=== PATIENT | female | born 1960 | race American Indian/Alaskan Native ===

== ENCOUNTER 2016-07-20 13:11 | Inpatient (IN) | payer MEDICAID ==
[2016-07-20 13:27] VITALS: BMI 25.7
[2016-07-20 13:30] LABS: ADD MANUAL DIFF? NO
[2016-07-20 13:34] LABS: BASO # 0.04 K/mm3 (0.0-2.0); BASO % 0.7 % (0.0-3.0); EOS # 0.1 (0.0-0.7); EOS % 1.1 % (1.5-5.0); GRAN # 3.03 (1.4-6.5); GRAN % 54.8 % (50.0-68.0); HEMATOCRIT 43.1 % (36.0-48.0); LYMPH # 1.9 (1.2-3.4); LYMPH % 33.8 % (22.0-35.0); MEAN CELL VOLUME 94.1 fL (80.0-105.0); MEAN CORPUSCULAR HEMOGLOBIN 31.7 pg (25.0-35.0); MEAN CORPUSCULAR HGB CONC 33.6 g/dl (31.0-37.0); MEAN PLATELET VOLUME 8.9 fl (7.0-11.0); MONO # 0.5 (0.1-0.6); MONO % 9.6 % (1.0-6.0); PLATELET COUNT 181 10^3/uL (120.0-450.0); WHITE BLOOD COUNT 5.5 10^3/ul (4.5-11.0)
--- NOTE | 2016-07-20 13:35 | ED PDOC ---
Arrival/HPI - General Chief Complaint: Chest Pain Time Seen by Provider: 07/20/16 13:15 Historian: Patient - History of Present Illness Narrative History of Present Illness (Text): 07/20/16 13:41 Pamela Hampton is a 56 year old female whose past medical history includes HIV, hypertension, CAD, and CHF, who presents to the Emergency department complaining of shortness of breath and chest pain since this morning. Patient denies headache, fever, cough, nausea, vomiting, back pain, lower extremity pain /swelling, or any other complaints at this time. PMD: Kevin Viveros MD Time/Duration: 24 hours Symptom Onset: Gradual Symptom Course: Unchanged Activities at Onset: Light Context: Home Past Medical History - Provider Review Nursing Documentation Reviewed: Yes - Infectious Disease Hx of Infectious Diseases: None - Tetanus Immunization Tetanus Immunization: Up to Date - Cardiac Hx Cardiac Disorders: Yes Hx Hypertension: Yes Hx Pacemaker: No - Pulmonary Hx Respiratory Disorders: Yes Hx Pneumonia: Yes - Neurological Hx Neurological Disorder: No Hx Paralysis: No - HEENT Hx HEENT Disorder: No Hx Blind: No - Renal Hx Renal Disorder: No - Endocrine/Metabolic Hx Endocrine Disorders: No - Hematological/Oncological Hx Blood Disorders: Yes Hx Blood Transfusions: No Hx Blood Transfusion Reaction: No - Integumentary Hx Dermatological Disorder: No - Musculoskeletal/Rheumatological Hx Musculoskeletal Disorders: No - Gastrointestinal Hx Gastrointestinal Disorders: No - Genitourinary/Gynecological Hx Genitourinary Disorders: No - Psychiatric Hx Psychophysiologic Disorder: No Hx Emotional Abuse: No Hx Physical Abuse: No Hx Substance Use: No - Past Surgical History Past Surgical History: No Previous - Anesthesia Hx Anesthesia Reactions: No Hx Malignant Hyperthermia: No - Suicidal Assessment Feels Threatened In Home Enviroment: No Family/Social History - Physician Review Nursing Documentation Reviewed: Yes Family/Social History: No Known Family HX Smoking Status: Current Some Days Smoker Hx Alcohol Use: No Hx Substance Use: No Hx Substance Use Treatment: No Allergies/Home Meds Allergies/Adverse Reactions: Allergies No Known Allergies Allergy (Verified 07/20/16 13:20) Home Medications: Home Meds Medication Instructions Recorded Confirmed Efavirenz/Emtricitabine/Teno 1 tab PO HS 05/20/12 07/20/16 [Atripla 600 MG-200 MG-300 MG] Metoprolol Tartrate [Lopressor] 50 mg PO BID 03/08/16 07/20/16 amLODIPine [Norvasc] 10 mg PO DAILY 03/08/16 07/20/16 Review of Systems - Physician Review All systems were reviewed & negative as marked: Yes - Review of Systems Constitutional: Normal. absent: Fevers Eyes: Normal ENT: Normal Respiratory: SOB. absent: Cough Cardiovascular: Chest Pain Gastrointestinal: Normal. absent: Abdominal Pain, Diarrhea, Nausea, Vomiting Genitourinary Female: Normal. absent: Dysuria, Frequency, Hematuria, Urine Output Changes Musculoskeletal: Normal. absent: Back Pain, Neck Pain Skin: Normal Neurological: Normal. absent: Headache, Dizziness Endocrine: Normal Hemo/Lymphatic: Normal Psychiatric: Normal Physical Exam Vital Signs Reviewed: Yes Vital Signs Temp Pulse Resp BP Pulse Ox 07/20/16 16:18 108 H 138/97 H 07/20/16 16:04 112 H 21 147/92 H 98 07/20/16 15:32 119 H 146/100 H 07/20/16 15:05 121 H 131/100 H 07/20/16 14:19 128/98 H 07/20/16 14:05 123 H 128/98 H 07/20/16 13:22 97 F L 123 H 17 147/101 H 96 Temperature: Afebrile Blood Pressure: Hypertensive Pulse: Tachycardic Respiratory Rate: Normal Appearance: Positive for: Well-Appearing, Non-Toxic, Comfortable Pain Distress: None Mental Status: Positive for: Alert and Oriented X 3 - Systems Exam Head: Present: Atraumatic, Normocephalic Pupils: Present: PERRL Extroacular Muscles: Present: EOMI Conjunctiva: Present: Normal Mouth: Present: Moist Mucous Membranes Respiratory/Chest: Present: Good Air Exchange. No: Respiratory Distress, Accessory Muscle Use Cardiovascular: Present: Regular Rate and Rhythm, Normal S1, S2, Other (Cackles) . No: Murmurs Abdomen: Present: Normal Bowel Sounds. No: Tenderness, Distention, Peritoneal Signs Lower Extremity: Present: Edema (3+ pitting edema b/l) Neurological: Present: GCS=15, CN II-XII Intact, Speech Normal Skin: Present: Warm, Dry, Normal Color. No: Rashes Psychiatric: Present: Alert, Oriented x 3, Normal Insight, Normal Concentration Medical Decision Making ED Course and Treatment: 07/20/16 13:34 Impression: 56 year old female who presents with chest pain and shortness of breath today. Plan: -- Chest X-ray -- EKG -- Labs, Urinalysis -- Aspirin -- Reassess and disposition Prior Visits: Notes and results from previous visits were reviewed. Patient was last seen in the emergency department on 03/08/16 for high blood pressure. Progress Notes: 07/20/16 13:[address] elevation mi, case discussed with dr augustin. will not activate at this time, as suspected tachcardia 07/20/16 13:43 Patient reports she is now pain free. hospitalist bedside, dig, and lovenox ordered for new aflutter 07/22/16 13:37 - Lab Interpretations Lab Results: 07/20/16 13:20 07/20/16 13:20 Lab Results 07/20/16 14:00: TSH 3rd Generation 3.01 07/20/16 13:20: WBC 5.5, RBC 4.58, Hgb 14.5, Hct 43.1, MCV 94.1, MCH 31.7, MCHC 33.6, RDW 18.0 H, Plt Count 181, MPV 8.9, Gran % 54.8, Lymph % (Auto) 33.8, Sevier % (Auto) 9.6 H, Eos % (Auto) 1.1 L, Baso % (Auto) 0.7, Gran # 3.03, Lymph # 1.9, Sevier # 0.5, Eos # 0.1, Baso # 0.04, PT 12.6 H, INR 1.17 H, APTT 27.8, Sodium 141, Potassium 3.5 L, Chloride 106, Carbon Dioxide 22, Anion Gap 17, BUN 25 H, Creatinine 1.1, Est GFR ( Amer) > 60, Est GFR (Non-Af Amer) 51, Random Glucose 63 L, Calcium 9.2, Magnesium 2.2, Total Bilirubin 1.6 H, AST 65 H , ALT 52, Alkaline Phosphatase 437 H, Lactate Dehydrogenase 725 H, Total Creatine Kinase 121, Troponin I 0.04, NT-Pro-B Natriuret Pep 3940 H, Total Protein 8.7 H, Albumin 4.0, Globulin 4.7, Albumin/Globulin Ratio 0.9 L I have reviewed the lab results: Yes - RAD Interpretation Radiology Orders: 07/20/16 13:25 CHEST PORTABLE [RAD] Stat Delivery And Mail Sorter: Radiologist - EKG Interpretation Interpreted by ED Physician: Yes Type: 12 lead EKG - Medication Orders Current Medication Orders: Aspirin (Ecotrin) 81 mg PO DAILY [facility] Last Admin: 07/22/16 09:03 Dose: 81 MG Atorvastatin Calcium (Lipitor) 20 mg PO DIN [facility] Last Admin: 07/21/16 17:21 Dose: 20 MG Efavirenz/Emtricitabine/Tenofovir (Atripla 600 Mg-200 Mg-300 Mg) 1 tab PO DAILY [facility] Last Admin: 07/22/16 09:03 Dose: 1 TAB Enoxaparin Sodium (Lovenox) 60 mg SC Q12H [facility] PRN Reason: Protocol Last Admin: 07/22/16 13:06 Dose: 60 MG Subcutaneous Administrations Document 07/22/16 13:06 RT (Rec: 07/22/16 13:06 RT [id number]) Injection Site MAR Injection Site Right Abdomen Charges for Administration # of Subcutaneous Administrations 1 Famotidine (Pepcid) 40 mg PO HS [facility] Last Admin: 07/21/16 21:52 Dose: 40 MG Furosemide (Lasix) 80 mg IVP Q12 [facility] Last Admin: 07/22/16 09:02 Dose: 80 MG MAR Blood Pressure Document 07/22/16 09:02 RT (Rec: 07/22/16 09:02 RT [id number]) Blood Pressure Blood Pressure (100/60-150/90) 147/73 IVP Administration Document 07/22/16 09:02 RT (Rec: 07/22/16 09:02 RT [id number]) Charges for Administration # of IVP Administrations 1 Lisinopril (Zestril) 10 mg PO DAILY [facility] Last Admin: 07/22/16 09:02 Dose: 10 MG Metoprolol Tartrate (Lopressor) 25 mg PO 0800,1800 [facility] Last Admin: 07/22/16 07:43 Dose: 25 MG MAR Pulse and Blood Pressure Document 07/22/16 07:43 RT (Rec: 07/22/16 07:43 RT [id number]) Pulse Pulse Rate (60-90) 75 Blood Pressure Blood Pressure (100/60-150/90) 147/73 Metoprolol Tartrate (Lopressor) 5 mg IVP Q8 PRN PRN Reason: Systolic Blood Pressure Nicotine (Nicoderm Cq) 1 patch TD DAILY [facility] Last Admin: 07/22/16 10:36 Dose: Not Given Non-Admin Reason: Patient Refused Potassium Chloride (Klor-Con 10) 10 meq PO BRK [facility] Last Admin: 07/22/16 09:03 Dose: 10 MEQ Spironolactone (Aldactone) 25 mg PO DAILY [facility] Last Admin: 07/22/16 09:03 Dose: 25 MG Discontinued Medications Aspirin (Aspirin) 325 mg PO STAT [facility] Stop: 07/20/16 13:26 Last Admin: 07/20/16 14:04 Dose: 325 MG Digoxin (Lanoxin) 0.25 mg IVP STAT STA Stop: 07/20/16 14:18 Last Admin: 07/20/16 14:48 Dose: 0.25 MG MAR Apical Pulse Rate Document 07/20/16 14:48 GMI (Rec: 07/20/16 14:49 GMI [id number]) Apical Pulse Rate Apical Pulse Rate (60-90 beats/min) 122 IVP Administration Document 07/20/16 14:48 GMI (Rec: 07/20/16 14:49 GMI [id number]) Charges for Administration # of IVP Administrations 1 Enoxaparin Sodium (Lovenox) 65 mg SC STAT [facility] PRN Reason: Protocol Stop: 07/20/16 14:11 Last Admin: 07/20/16 14:51 Dose: 65 MG Subcutaneous Administrations Document 07/20/16 14:51 GMI (Rec: 07/20/16 14:52 GMI [id number]) Injection Site MAR Injection Site Left Abdomen Charges for Administration # of Subcutaneous Administrations 1 Furosemide (Lasix) 40 mg IVP STAT STA Stop: 07/20/16 14:02 Last Admin: 07/20/16 14:19 Dose: 40 MG MAR Blood Pressure Document 07/20/16 14:19 GMI (Rec: 07/20/16 14:20 GMI [id number]) Blood Pressure Blood Pressure (100/60-150/90) 128/98 IVP Administration Document 07/20/16 14:19 GMI (Rec: 07/20/16 14:20 GMI [id number]) Charges for Administration # of IVP Administrations 1 Furosemide (Lasix) 40 mg IVP Q12 [facility] Last Admin: 07/21/16 21:56 Dose: Not Given Non-Admin Reason: Patient Refused Metoprolol Tartrate (Lopressor) 25 mg PO STAT [facility]A Stop: 07/20/16 14:44 Last Admin: 07/20/16 15:32 Dose: 25 MG MAR Pulse and Blood Pressure Document 07/20/16 15:32 GMI (Rec: 07/20/16 15:32 GMI [id number]) Pulse Pulse Rate (60-90) 119 Blood Pressure Blood Pressure (100/60-150/90) 146/100 Pneumococcal Polyvalent Vaccine (Pneumovax 23 Vaccine) 0.5 ml IM .ONCE ONE Stop: 07/20/16 19:15 Potassium Chloride (K-Dur 20 Meq Er Tab) 40 meq PO STAT STA Stop: 07/20/16 14:52 Last Admin: 07/20/16 16:06 Dose: 40 MEQ - Mendezibe Statement The provider has reviewed the documentation as recorded by the Damion Kemp Provider Attestation: All medical record entries made by the Damion were at my direction and personally dictated by me. I have reviewed the chart and agree that the record accurately reflects my personal performance of the history, physical exam, medical decision making, and the department course for this patient. I have also personally directed, reviewed, and agree with the discharge instructions and disposition. Disposition/Present on Arrival - Present on Arrival Any Indicators Present on Arrival: No History of DVT/PE: No History of Uncontrolled Diabetes: No Urinary Catheter: No History of Decub. Ulcer: No History Surgical Site Infection Following: None - Disposition Have Diagnosis and Disposition been Completed?: Yes Diagnosis: Atrial flutter, CHF (congestive heart failure) Disposition: HOSPITALIZED Disposition Time: 02:00 Patient Problems: Current Active Problems Problem Status Diagnosed Atrial flutter Acute CHF (congestive heart failure) Acute Condition: FAIR
[2016-07-20 13:45] LABS: ALB/GLOB RATIO 0.9 (1.1-1.8); ALKALINE PHOSPHATASE 437 U/L (38-133); ALT/SGPT 52 U/L (7-56); AST/SGOT 65 U/L (15-39); BILIRUBIN,TOTAL 1.6 mg/dL (0.2-1.3); BLOOD UREA NITROGEN 25 mg/dL (7-21); CALCIUM 9.2 mg/dL (8.4-10.5); CARBON DIOXIDE 22 mmol/L (21-33); CHLORIDE 106 mmol/L (98-107); GFR AFRICAN-AMERICAN > 60; GLUCOSE,RANDOM 63 mg/dL (70-110); MAGNESIUM 2.2 mg/dL (1.7-2.2); POTASSIUM 3.5 mmol/L (3.6-5.0); SODIUM 141 mmol/L (132-148); TOTAL PROTEIN 8.7 g/dL (5.8-8.3)
[2016-07-20 13:47] LABS: INR 1.17 (0.93-1.08); PARTIAL THROMBOPLASTIN TIME 27.8 Seconds (23.7-30.8)
[2016-07-20 13:56] LABS: TROPONIN I 0.04 ng/mL
[2016-07-20] MEDS ORDERED: Enoxaparin 60 mg Syringe SC STA (14:10)
[2016-07-20] MEDS ORDERED: Digoxin 500 mcg/2ml (0.5 mg/2ml) Inj IVP STA (14:17)
[2016-07-20] MEDS ORDERED: Potassium Chloride 20 mEq ER Tab PO STA (14:51)
[2016-07-20 14:54] VITALS: PULSE 122
[2016-07-20 15:20] LABS: URINE BILIRUBIN NEGATIVE (NEGATIVE); URINE BLOOD TRACE-INTACT (NEGATIVE); URINE GLUCOSE (UA) NEGATIVE (NEGATIVE); URINE KETONE NEGATIVE (NEGATIVE); URINE LEUKOCYTE ESTERASE NEGATIVE Leu/uL (NEGATIVE); URINE PROTEIN 100 mg/dL (<30 mg/dL); URINE UROBILINOGEN 0.2 E.U./dL (<1 E.U./dL)
--- NOTE | 2016-07-20 15:28 | CP.PCM.HP ---
History of Present Illness - History of Present Illness History of Present Illness: Shortness of breath and leg swelling Patient seen and examined in ER bed 7. Patient is alert, awake and oriented. Able to give history. Patient is a 56-year-old -Stateless female with a past medical history of HIV, cardiomyopathy, hypertension is admitted with shortness of breath and leg swelling. Her symptoms started about 10 days ago. Slowly increasing bilateral lower extremity swelling. Patient also complained of shortness of breath with exertion. Patient is currently using 3 pillows to sleep. Patient is complaining of orthopnea and paroxysmal nocturnal dyspnea for the past few weeks. Patient denies any fevers, chills. Denies any chest pain. Complaining of minimal chest discomfort. Not radiating. Denies any cough or sputum production. Denies any abdominal pain, nausea, vomiting. Denies any urinary, bowel symptoms. Patient is very noncompliant with her blood pressure medication. Patient did not take Lasix for the past 3 years. Patient took only one lasix 40 mg on Friday and one on after noticing leg swelling. this was an old prescription. PMD; Dr. Petty. Infectious disease; Dr. Axel Luna. Pharmacy; [facility] [phone] Past medical history; HIV since 2008 Active smoking Cardiomyopathy Cardiac cath in 2012/nonobstructive coronary disease Noncompliance with medication Current medications; Atripla Norvasc 10 mg by mouth daily Did not take Lasix or metoprolol Past surgical history; None Allergies; None Social history; Smokes 6-7 cigarettes per day over 20 years Social alcohol use Denies any drug abuse Patient lives in [place]. Independent with ADL. Present on Admission - Present on Admission Any Indicators Present on Admission: No History of DVT/PE: No History of Uncontrolled Diabetes: No Urinary Catheter: No Decubitus Ulcer Present: No Review of Systems - Constitutional Constitutional: absent: Chills - EENT Eyes: absent: Blurred Vision Nose/Mouth/Throat: absent: Nasal Congestion - Cardiovascular Cardiovascular: absent: Chest Pain, Chest Pain at Rest - Respiratory Respiratory: Dyspnea on Exertion. absent: Cough - Gastrointestinal Gastrointestinal: absent: Abdominal Pain, Nausea, Vomiting - Musculoskeletal Musculoskeletal: absent: Abnormal Gait Additional comments: leg swelling - Neurological Neurological: absent: Abnormal Gait, Confusion, Focal Weakness, Weakness - Psychiatric Psychiatric: absent: Anxiety, Depression - Hematologic/Lymphatic Hematologic: absent: Easy Bleeding, Easy Bruising Past Patient History - Infectious Disease Hx of Infectious Diseases: None - Tetanus Immunizations Tetanus Immunization: Up to Date - Past Social History Smoking Status: Current Some Days Smoker Alcohol: None Drugs: Denies Home Situation {Lives}: Alone - CARDIAC Hx Cardiac Disorders: Yes Hx Hypertension: Yes Hx Pacemaker: No - PULMONARY Hx Respiratory Disorders: Yes Hx Pneumonia: Yes - NEUROLOGICAL Hx Neurological Disorder: No Hx Paralysis: No - HEENT Hx HEENT Problems: No Hx Blind: No - RENAL Hx Chronic Kidney Disease: No - ENDOCRINE/METABOLIC Hx Endocrine Disorders: No - HEMATOLOGICAL/ONCOLOGICAL Hx Blood Disorders: Yes Hx Blood Transfusions: No Hx Blood Transfusion Reaction: No Hx Human Immunodeficiency Virus (HIV): Yes - INTEGUMENTARY Hx Dermatological Problems: No - MUSCULOSKELETAL/RHEUMATOLOGICAL Hx Musculoskeletal Disorders: No - GASTROINTESTINAL Hx Gastrointestinal Disorders: No - GENITOURINARY/GYNECOLOGICAL Hx Genitourinary Disorders: No - PSYCHIATRIC Hx Psychophysiologic Disorder: No Hx Emotional Abuse: No Hx Physical Abuse: No Hx Substance Use: No - SURGICAL HISTORY Hx Surgeries: No - ANESTHESIA Hx Anesthesia Reactions: No Hx Malignant Hyperthermia: No Meds Allergies/Adverse Reactions: Allergies Allergy/AdvReac Type Severity Reaction Status Date / Time No Known Allergies Allergy Verified 07/20/16 13:20 Physical Exam - Constitutional Appears: Well, Non-toxic - Head Exam Head Exam: NORMAL INSPECTION - Eye Exam Eye Exam: Normal appearance - ENT Exam ENT Exam: Mucous Membranes Moist - Respiratory Exam Respiratory Exam: Rales Additional comments: on bases - Cardiovascular Exam Cardiovascular Exam: Tachycardia, Irregular Rhythm - GI/Abdominal Exam GI & Abdominal Exam: Normal Bowel Sounds, Soft. absent: Rebound, Rigid - Extremities Exam Extremities exam: Positive for: pedal edema - Back Exam Back exam: absent: CVA tenderness (L), CVA tenderness (R) - Neurological Exam Neurological exam: Alert, Oriented x3 - Psychiatric Exam Psychiatric exam: Normal Affect - Skin Skin Exam: Normal Color Results - Vital Signs Recent Vital Signs: Last Vital Signs Temp 97 F L 07/20/16 13:22 Pulse 121 H 07/20/16 15:05 Resp 17 07/20/16 13:22 BP 131/100 H 07/20/16 15:05 Pulse Ox 96 07/20/16 13:22 - Labs Result Diagrams: 07/20/16 13:20 07/20/16 13:20 Assessment & Plan - Assessment and Plan (Free Text) Assessment: 1. Patient is a 56-year-old female with past medical history of cardiomyopathy, hypertension, HIV noncompliant with medications is admitted with Progressive shortness of breath and leg swelling. Acute congestive heart failure/possibly secondary to systolic CHF. Started on IV Lasix. Strict input and output. Daily weight ordered. Cardiac diet ordered. Dietitian evaluation requested. Echocardiogram ordered. Cardiology evaluation requested. 2. Atrial flutter/A. fib with ST-T changes. EKG reviewed with dairy scientist on- call by ED attending. Cardiac enzymes negative. 1 dose of IV digoxin given. Started on subcutaneous Lovenox. Monitor heart rate closely. Started on metoprolol, lisinopril. 3. HIV; continue Atripla. Patient has undetectable viral load and good CD4 count recently. Patient follows up with Dr. Axel Luna for HIv follow up. 4. Mildly elevated LFTs; possibly passive congestion secondary to CHF. Monitor closely. 5. GI prophylaxis with Pepcid. 6. Active smoking; smoking cessation is strongly advised. upon discharge patient will follow-up with PMD Dr. elias. Patient needs close follow-up with dairy scientist. Medication compliance is strongly recommended.
[2016-07-20 15:41] LABS: URINE APPEARANCE CLEAR (CLEAR); URINE COLOR YELLOW (YELLOW)
[2016-07-20 15:49] LABS: URINE EPITHELIAL CELLS 0 - 2 /hpf (0-5); URINE WBC 0 - 2 /hpf (0-6)
[2016-07-20] MEDS ORDERED: Metoprolol 1 mg/ml Inj IVP PRN (16:00)
[2016-07-20] MEDS: Efavirenz/Emtricitabine/Teno 1 TAB PO SCH (16:16)
[2016-07-20] MEDS ORDERED: Pneumococcal 23-Valent Vaccine IM ONE (19:14)
[2016-07-20 20:52] LABS: TROPONIN I 0.04 ng/mL
[2016-07-20] MEDS ORDERED: Enoxaparin 60 mg Syringe SC SCH (22:00)
[2016-07-21] MEDS: Enoxaparin 60 mg Syringe SC SCH ×2 (01:16→14:07)
[2016-07-21 06:52] LABS: HEMATOCRIT 38.4 % (36.0-48.0); MEAN CORPUSCULAR HEMOGLOBIN 30.3 pg (25.0-35.0); MEAN CORPUSCULAR HGB CONC 32.6 g/dl (31.0-37.0); RED CELL DISTRIBUTION WIDTH 17.7 % (11.5-14.5); WHITE BLOOD COUNT 4.9 10^3/ul (4.5-11.0)
[2016-07-21 06:58] LABS: ALB/GLOB RATIO 0.8 (1.1-1.8); ALKALINE PHOSPHATASE 383 U/L (38-133); ALT/SGPT 59 U/L (7-56); AST/SGOT 59 U/L (15-39); BILIRUBIN,TOTAL 1.2 mg/dL (0.2-1.3); BLOOD UREA NITROGEN 27 mg/dL (7-21); CALCIUM 8.7 mg/dL (8.4-10.5); CARBON DIOXIDE 22 mmol/L (21-33); CHLORIDE 107 mmol/L (98-107); CHOLESTEROL 159 mg/dL (130-200); GFR AFRICAN-AMERICAN > 60; GLUCOSE,RANDOM 92 mg/dL (70-110); POTASSIUM 3.6 mmol/L (3.6-5.0); SODIUM 138 mmol/L (132-148)
[2016-07-21 07:11] LABS: TROPONIN I 0.04 ng/mL
--- NOTE | 2016-07-21 08:05 | RAD ---
HISTORY: cp COMPARISON: No prior. FINDINGS: LUNGS: No active pulmonary disease. PLEURA: No significant pleural effusion identified, no pneumothorax apparent. CARDIOVASCULAR: Cardiomegaly. OSSEOUS STRUCTURES: No significant abnormalities. VISUALIZED UPPER ABDOMEN: Normal. OTHER FINDINGS: None. IMPRESSION: No active disease.
[2016-07-21] MEDS: Efavirenz/Emtricitabine/Teno 1 TAB PO SCH (10:22)
--- NOTE | 2016-07-21 10:24 | CP.PCM.PN ---
Subjective - Date & Time of Evaluation Date of Evaluation: 07/21/16 Time of Evaluation: 08:00 - Subjective Subjective: patient seen and examined in room 271. Patient is alert, awake and oriented. Shortness of breath improved significantly. Denies any chest pain. denies any abdominal pain, nausea, vomiting. Leg swelling is improving slowly. Urinating well. I/O is in negative 2 liter. Review of Systems - Constitutional Constitutional: absent: Chills - EENT Eyes: absent: Blurred Vision Nose/Mouth/Throat: absent: Nasal Congestion - Cardiovascular Cardiovascular: Dyspnea on Exertion, Edema. absent: Chest Pain, Chest Pain at Rest - Respiratory Respiratory: absent: Cough, Chest Congestion - Gastrointestinal Gastrointestinal: absent: Abdominal Pain, Nausea, Vomiting - Musculoskeletal Musculoskeletal: absent: Abnormal Gait, Numbness - Psychiatric Psychiatric: absent: Anxiety, Depression - Hematologic/Lymphatic Hematologic: absent: Easy Bleeding, Easy Bruising Objective - Vital Signs/Intake and Output Vital Signs (last 24 hours): Temp Pulse Resp BP Pulse Ox 98.6 F 94 H 22 115/74 97 07/21/16 05:46 07/21/16 08:22 07/21/16 05:46 07/21/16 08:22 07/21/16 05:46 Intake and Output: 07/21/16 07/21/16 06:59 18:59 Intake Total 1080 Output Total 1350 Balance -270 - Medications Medications: Current Medications Aspirin (Ecotrin) 81 mg PO DAILY [facility] Last Admin: 07/20/16 16:23 Dose: Not Given Atorvastatin Calcium (Lipitor) 20 mg PO DIN [facility] Last Admin: 07/20/16 16:01 Dose: 20 mg Efavirenz/Emtricitabine/Tenofovir (Atripla 600 Mg-200 Mg-300 Mg) 1 tab PO DAILY [facility] Last Admin: 07/20/16 16:16 Dose: 1 tab Enoxaparin Sodium (Lovenox) 60 mg SC Q12H [facility] PRN Reason: Protocol Last Admin: 07/21/16 01:16 Dose: 60 mg Famotidine (Pepcid) 40 mg PO HS [facility] Last Admin: 07/20/16 22:41 Dose: 40 mg Furosemide (Lasix) 40 mg IVP Q12 [facility] Last Admin: 07/20/16 22:40 Dose: 40 mg Lisinopril (Zestril) 10 mg PO DAILY [facility] Last Admin: 07/20/16 16:18 Dose: 10 mg Metoprolol Tartrate (Lopressor) 25 mg PO 0800,1800 [facility] Last Admin: 07/21/16 08:22 Dose: 25 mg Metoprolol Tartrate (Lopressor) 5 mg IVP Q8 PRN PRN Reason: Systolic Blood Pressure - Labs Labs: 07/21/16 06:41 07/21/16 06:41 PT 12.6 Seconds (9.9-11.8) H 07/20/16 13:20 INR 1.17 (0.93-1.08) H 07/20/16 13:20 APTT 27.8 Seconds (23.7-30.8) 07/20/16 13:20 - Constitutional Appears: Well, Non-toxic - Eye Exam Eye Exam: Normal appearance - ENT Exam ENT Exam: Mucous Membranes Moist - Respiratory Exam Respiratory Exam: Clear to Ausculation Bilateral. absent: Rales - Cardiovascular Exam Cardiovascular Exam: Irregular Rhythm - GI/Abdominal Exam GI & Abdominal Exam: Soft, Normal Bowel Sounds. absent: Tenderness - Extremities Exam Extremities Exam: Pedal Edema - Back Exam Back Exam: absent: CVA tenderness (L), CVA tenderness (R) - Neurological Exam Neurological Exam: Alert - Psychiatric Exam Psychiatric exam: Normal Affect - Skin Skin Exam: Normal Color Assessment and Plan - Assessment and Plan (Free Text) Assessment: 1. Patient is a 56-year-old female with past medical history of cardiomyopathy, hypertension, HIV noncompliant with medications is admitted with Progressive shortness of breath and leg swelling. Acute congestive heart failure/possibly secondary to systolic CHF. Started on IV Lasix. shortness of breath improved significantly. In negative balance about 2 L. Echocardiogram pending. Cardiology evaluation requested. cardiac enzymes 3 is negative. 2. Atrial flutter/A. fib with ST-T changes. on subcutaneous Lovenox. patient may need long-term anticoagulation. Follow-up echo report. Started on metoprolol, lisinopril. 3. HIV; continue Atripla. Patient has undetectable viral load and good CD4 count recently. Patient follows up with Dr. Axel Luna for HIv follow up. 4. Mildly elevated LFTs; possibly passive congestion secondary to CHF. Monitor closely.hepatitis profile ordered. 5. GI prophylaxis with Pepcid. 6. Active smoking; smoking cessation is strongly advised.started on NicoDerm patch. upon discharge patient will follow-up with PMD Dr. elias.
--- NOTE | 2016-07-21 13:22 | CARD ---
APPROVED REPORT EKG Measurement Heart [id number] [id number] <Conclusion> Age and gender specific ECG analysis Atrial flutter with 4:1 AV conduction Rightward axis Abnormal ECG
--- NOTE | 2016-07-21 13:34 | CARD ---
APPROVED REPORT EKG Measurement Heart [id number] <Conclusion> Atrial flutter with 2:1 AV conduction Right axis deviation Possible Lateral infarct, age undetermined Abnormal ECG
--- NOTE | 2016-07-21 14:48 | CON ---
DATE: 07/21/2016 Cardiology consultation (for Dr. Rowley). HISTORY OF PRESENT ILLNESS: The patient is a 56-year-old woman who presents with dyspnea. The patient denies any memory of previous cardiac history. However, according to her medical records , she underwent a cardiac catheterization 3 years ago, which showed an ejection fraction of 35%. She also presented with atrial flutter, in which she states she has had an abnormal heart rhythm for the past year. She sees Dr. 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 Negative diabetes mellitus. Her past medical history also includes a history of hypertension as well as COPD and she is an active smoker. SOCIAL HISTORY: She is an active smoker. She has a previous history of HIV, which has been treated with supposedly negative viral counts. REVIEW OF SYSTEMS: A 14-point was reviewed in detail. She denies cardiac symptomatology now. PHYSICAL EXAMINATION: VITAL SIGNS: Blood pressure is 112/82, heart rate is in the 80s, atrial flutter. NECK: Negative JVD. LUNGS: Without rales. HEART: Revealed S1, S2. EXTREMITIES: Without edema. LABORATORIES: Troponins are 0.04. TSH is 3.01. Her hemoglobin is 12.5. IMPRESSION: 1. Dyspnea. 2. Likely exacerbation of chronic obstructive pulmonary disease. 3. History of dilated cardiomyopathy. 4. Hypertension. 5. History of human immunodeficiency virus. 6. Hypercholesterolemia. Given these findings, we will obtain an echocardiogram. A proBNP was ordered. We will need to consi viviana anticoagulation for the patient once her cardiac workup has been complete. In the morning, we will transfer the patient back to the care of Dr. Rowley. Markus Bess MD cc: [id number] TT: 07/21/2016 14:47:20 Confirmation # [id number] Dictation # [id number] en
[2016-07-22] MEDS: Enoxaparin 60 mg Syringe SC SCH ×2 (01:18→13:06)
--- NOTE | 2016-07-22 08:54 | PN ---
DATE: 07/22/2016 SUBJECTIVE: The patient is experiencing shortness breath and leg swelling. She denies any chest zhang n. PHYSICAL EXAMINATION: VITAL SIGNS: Blood pressure 147/73, heart rate 75, temperature 97.8, respirations 22. HEENT: Facial edema. NECK: JVD is noted. CHEST: Absent breath sounds over the left base. HEART: S1, S2 irregular. EXTREMITIES: 2+ pitting edema. ASSESSMENT: 1. Exacerbation of congestive heart failure. 2. Human immunodeficiency virus positive. 3. History of nonischemic cardiomyopathy diagnosed in ____. RECOMMENDATIONS: Increase Lasix to 80 mg intravenous twice a day. Start K-Dur 20 mEq once a day, Al dactone 25 mg once a day. Continue aspirin, Lopressor and Zestril. Obtain an echocardiogram. Praneeth Rowley MD cc: [id number] TT: 07/22/2016 08:54:02 Confirmation # [id number] Dictation # [id number] mn
[2016-07-22] MEDS: Efavirenz/Emtricitabine/Teno 1 TAB PO SCH (09:03)
[2016-07-22] MEDS: Potassium Chloride 10 mEq ER Tab PO SCH (09:03)
[2016-07-22 10:11] LABS: ADD MANUAL DIFF? NO
[2016-07-22 10:12] LABS: BASO # 0.05 K/mm3 (0.0-2.0); EOS # 0.1 (0.0-0.7); EOS % 1.6 % (1.5-5.0); GRAN # 2.65 (1.4-6.5); GRAN % 53.7 % (50.0-68.0); HEMATOCRIT 41.1 % (36.0-48.0); LYMPH # 1.8 (1.2-3.4); LYMPH % 35.8 % (22.0-35.0); MEAN CELL VOLUME 93.4 fL (80.0-105.0); MEAN CORPUSCULAR HEMOGLOBIN 31.4 pg (25.0-35.0); MEAN CORPUSCULAR HGB CONC 33.6 g/dl (31.0-37.0); MEAN PLATELET VOLUME 9.3 fl (7.0-11.0); MONO # 0.4 (0.1-0.6); MONO % 7.9 % (1.0-6.0); PLATELET COUNT 193 10^3/uL (120.0-450.0); RED CELL DISTRIBUTION WIDTH 17.7 % (11.5-14.5); WHITE BLOOD COUNT 4.9 10^3/ul (4.5-11.0)
[2016-07-22 11:10] LABS: ALB/GLOB RATIO 0.9 (1.1-1.8); CALCIUM 8.8 mg/dL (8.4-10.5); POTASSIUM 4.4 mmol/L (3.6-5.0); TOTAL PROTEIN 7.7 g/dL (5.8-8.3)
--- NOTE | 2016-07-22 11:32 | CP.PCM.PN ---
<Gray Singh - Last Filed: 07/22/16 11:27> Subjective - Date & Time of Evaluation Date of Evaluation: 07/22/16 Time of Evaluation: 07:10 - Subjective Subjective: Hospitalist Progress Note: Pt seen and examined at bedside. No acute events overnight. Pt states that her shortness of breath is better but still c/o swelling and pain in her b/l lower ext. Pt has refused her Lasix last night since she states it was not helping her. No other complaints. Denies any headaches, dizziness, f/c, sob, cp, palpitations, abd pain, n/v, urinary or bm changes. Objective - Vital Signs/Intake and Output Vital Signs (last 24 hours): Temp Pulse Resp BP Pulse Ox 97.8 F 96 H 22 147/73 99 07/22/16 06:00 07/22/16 10:00 07/22/16 06:00 07/22/16 09:02 07/22/16 06:00 Intake and Output: 07/22/16 07/22/16 06:59 18:59 Intake Total 900 Output Total 1075 Balance -175 - Medications Medications: Current Medications Aspirin (Ecotrin) 81 mg PO DAILY [facility] Last Admin: 07/22/16 09:03 Dose: 81 mg Atorvastatin Calcium (Lipitor) 20 mg PO DIN [facility] Last Admin: 07/21/16 17:21 Dose: 20 mg Efavirenz/Emtricitabine/Tenofovir (Atripla 600 Mg-200 Mg-300 Mg) 1 tab PO DAILY [facility] Last Admin: 07/22/16 09:03 Dose: 1 tab Enoxaparin Sodium (Lovenox) 60 mg SC Q12H [facility] PRN Reason: Protocol Last Admin: 07/22/16 01:18 Dose: 60 mg Famotidine (Pepcid) 40 mg PO HS [facility] Last Admin: 07/21/16 21:52 Dose: 40 mg Furosemide (Lasix) 80 mg IVP Q12 [facility] Last Admin: 07/22/16 09:02 Dose: 80 mg Lisinopril (Zestril) 10 mg PO DAILY [facility] Last Admin: 07/22/16 09:02 Dose: 10 mg Metoprolol Tartrate (Lopressor) 25 mg PO 0800,1800 [facility] Last Admin: 07/22/16 07:43 Dose: 25 mg Metoprolol Tartrate (Lopressor) 5 mg IVP Q8 PRN PRN Reason: Systolic Blood Pressure Nicotine (Nicoderm Cq) 1 patch TD DAILY [facility] Last Admin: 07/22/16 10:36 Dose: Not Given Potassium Chloride (Klor-Con 10) 10 meq PO BRK [facility] Last Admin: 07/22/16 09:03 Dose: 10 meq Spironolactone (Aldactone) 25 mg PO DAILY [facility] Last Admin: 07/22/16 09:03 Dose: 25 mg - Labs Labs: 07/22/16 09:45 07/22/16 09:45 PT 12.6 Seconds (9.9-11.8) H 07/20/16 13:20 INR 1.17 (0.93-1.08) H 07/20/16 13:20 APTT 27.8 Seconds (23.7-30.8) 07/20/16 13:20 - Constitutional Appears: No Acute Distress - Head Exam Head Exam: ATRAUMATIC, NORMAL INSPECTION, NORMOCEPHALIC - Eye Exam Eye Exam: EOMI, Normal appearance, PERRL Pupil Exam: NORMAL ACCOMODATION, PERRL - ENT Exam ENT Exam: Mucous Membranes Moist, Normal Exam - Neck Exam Neck Exam: Full ROM, Normal Inspection. absent: Lymphadenopathy - Respiratory Exam Respiratory Exam: Clear to Ausculation Bilateral, NORMAL BREATHING PATTERN. absent: Rales, Wheezes - Cardiovascular Exam Cardiovascular Exam: REGULAR RHYTHM, RRR, +S1, +S2. absent: Murmur - GI/Abdominal Exam GI & Abdominal Exam: Soft, Normal Bowel Sounds. absent: Tenderness - Extremities Exam Extremities Exam: Pedal Edema, Tenderness. absent: Calf Tenderness Additional comments: 2+ - Neurological Exam Neurological Exam: Alert, Awake, Normal Gait, Oriented x3 - Psychiatric Exam Psychiatric exam: Normal Affect, Normal Mood - Skin Skin Exam: Dry, Intact, Normal Color, Warm Assessment and Plan - Assessment and Plan (Free Text) Assessment: 56-year-old female with past medical history of cardiomyopathy, hypertension, HIV noncompliant with medications is admitted for shortness of breath and leg swelling possibly 2/2 systolic CHF 1. CHF exacerbation - Started on 40mg IV Lasix shortness of breath improved but refused last nights dose - Cardiology recs - Lasix inc to 80mg IV BID, started Kdur 10meq, aldactone 25mg daily - cont aspirin, Lopressor, and Zestril - f/u Echocardiogram - f/u lower ext doppler - cardiac enzymes 3 is negative - Advised importance of elevation of lower extremity and compression stockings 2. Atrial flutter/A. fib with ST-T changes - Currently on subcutaneous Lovenox - f/u cardiology regarding need for long-term anticoagulation - Follow-up echo report - Started on metoprolol, lisinopril 3. HIV - continue Atripla - Patient has undetectable viral load and good CD4 count recently - Patient follows up with Dr. Axel Luna for HIv follow up. 4. Mildly elevated LFTs - possibly passive congestion secondary to CHF - hepatitis profile ordered 5. GI/DVT ppx with Pepcid and Lovenox 6. Active smoking; smoking cessation advised - started on NicoDerm patch Case and plan was seen, reviewed, and discussed in detail with Dr Mustafa. <Linda Mustafa - Last Filed: 07/23/16 21:51> Objective - Vital Signs/Intake and Output Vital Signs (last 24 hours): Temp Pulse Resp BP Pulse Ox 97.6 F 82 19 131/96 H 95 07/23/16 12:00 07/23/16 12:00 07/23/16 12:00 07/23/16 12:00 07/23/16 00:01 Intake and Output: 07/23/16 07/23/16 06:59 18:59 Intake Total 360 Output Total 1000 Balance -640 - Medications Medications: Current Medications Aspirin (Ecotrin) 81 mg PO DAILY [facility] Last Admin: 07/23/16 10:27 Dose: 81 mg Atorvastatin Calcium (Lipitor) 20 mg PO DIN [facility] Last Admin: 07/22/16 16:57 Dose: 20 mg Efavirenz/Emtricitabine/Tenofovir (Atripla 600 Mg-200 Mg-300 Mg) 1 tab PO DAILY [facility] Last Admin: 07/23/16 10:41 Dose: 1 tab Enoxaparin Sodium (Lovenox) 60 mg SC Q12H [facility] PRN Reason: Protocol Last Admin: 07/22/16 13:06 Dose: 60 mg Famotidine (Pepcid) 40 mg PO HS [facility] Last Admin: 07/22/16 22:13 Dose: Not Given Furosemide (Lasix) 80 mg IVP Q12H [facility] Lisinopril (Zestril) 10 mg PO DAILY [facility] Last Admin: 07/23/16 10:41 Dose: 10 mg Metoprolol Tartrate (Lopressor) 25 mg PO 0800,1800 [facility] Last Admin: 07/23/16 08:43 Dose: 25 mg Metoprolol Tartrate (Lopressor) 5 mg IVP Q8 PRN PRN Reason: Systolic Blood Pressure Nicotine (Nicoderm Cq) 1 patch TD DAILY [facility] Last Admin: 07/23/16 10:51 Dose: Not Given Potassium Chloride (Klor-Con 10) 10 meq PO BRK [facility] Last Admin: 07/23/16 08:42 Dose: 10 meq Spironolactone (Aldactone) 25 mg PO DAILY [facility] Last Admin: 07/23/16 10:42 Dose: 25 mg - Labs Labs: 07/23/16 07:40 07/23/16 07:40 PT 12.6 Seconds (9.9-11.8) H 07/20/16 13:20 INR 1.17 (0.93-1.08) H 07/20/16 13:20 APTT 27.8 Seconds (23.7-30.8) 07/20/16 13:20 Attending/Attestation - Attestation I have personally seen and examined this patient.: Yes I have fully participated in the care of the patient.: Yes I have reviewed all pertinent clinical information, including history, physical exam and plan: Yes Notes (Text): I have seen and examined patient at bedside. This is 56 year old female with history of cardiomyopathy, HTN, HIV, non compliant with medications who got admitted for progressive shortness of breath and leg edema and found to have CHF exacerbation secondary to systolic CHF. Continue IV lasix, metoprolol and lisinopril. Echo revealed that LVEF is severely impaired, severe TR and mild pulmonary hypertension. LE doppler is negative. Also has atrial flutter on subcutaneous lovenox. Continue metoprolol. EP consult is pending. 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 Continue metoprolol and lisinopril. Continue atripla for HIV. Tobacco cessation is strongly advised. She also has elevated LFT's which can be due to passive congestion secondary to CHF. Upon discharge patient will follow up with Dr Brown and Dr Axel Luna. Dr Linda Mustafa
--- NOTE | 2016-07-22 15:11 | CARD ---
APPROVED REPORT EXAM: Two-dimensional and M-mode echocardiogram with Doppler and color Doppler. INDICATION Atrial Fibrillation 2D DIMENSIONS Left Atrium (2D)4.9 (1.6-4.0cm)IVSd1.1 (0.7-1.1cm) LVDd4.4 (3.9-5.9cm)PWd1.3 (0.7-1.1cm) LVDs3.9 (2.5-4.0cm)FS (%) 11.6 % LVEF (%)25.3 (>50%) M-Mode DIMENSIONS Aortic Root2.00 (2.2-3.7cm)Aortic Cusp Exc.1.60 (1.5-2.0cm) Aortic Valve AoV Peak Vricrhew708.0cm/Tommy Peak GR.5mmHg Mitral Valve E/A ratio0.0 TDI E/Lateral E'0.0E/Medial E'0.0 Tricuspid Valve TR Peak [id number]/sRAP [id number] Peak Gr.29mmHg [id number] LEFT VENTRICLE The left ventricle is normal size. There is borderline concentric left ventricular hypertrophy. The systolic function is severely impaired. There is a flattened septum No left ventricle thrombus noted on this study. RIGHT VENTRICLE The right ventricle is mildly to moderately dilated. There is normal right ventricular wall thickness. RV Systolic function is mildly to moderately reduced. ATRIA The left atrium is severely dilated. The right atrium is severely dilated. AORTIC VALVE The aortic valve is mildly thickened. MITRAL VALVE The mitral valve is moderately thickened. Mitral regurgitation is severe. TRICUSPID VALVE There is severe tricuspid regurgitation. There is mild pulmonary hypertension. GREAT VESSELS The aortic root is normal in size. The IVC is dilated. <Conclusion> The left ventricle is normal size. There is borderline concentric left ventricular hypertrophy. The systolic function is severely impaired. There is a flattened septum No left ventricle thrombus noted on this study. Mitral regurgitation is severe. There is severe tricuspid regurgitation. There is mild pulmonary hypertension.
--- NOTE | 2016-07-22 19:00 | US ---
HISTORY: Leg pain and swelling. Evaluate for DVT PHYSICIAN(S): Markus Grider MD. TECHNIQUE: Duplex sonography and color-flow Doppler with graded compression were used to evaluate the deep venous systems of both lower extremities. FINDINGS: The visualized deep venous systems of both lower extremities are sonographically normal and compressible. Normal wave forms and augmentation are seen. There is no sonographic evidence for deep venous thrombosis in the visualized segments of both lower extremities. IMPRESSION: No sonographic evidence for deep venous thrombosis in the visualized segments of both lower extremities.
[2016-07-23 07:58] LABS: ADD MANUAL DIFF? NO
[2016-07-23 08:34] LABS: BASO # 0.04 K/mm3 (0.0-2.0); BASO % 0.9 % (0.0-3.0); EOS # 0.1 (0.0-0.7); EOS % 1.3 % (1.5-5.0); GRAN # 2.35 (1.4-6.5); HEMATOCRIT 40.9 % (36.0-48.0); LYMPH # 1.7 (1.2-3.4); LYMPH % 36.9 % (22.0-35.0); MEAN CELL VOLUME 93.4 fL (80.0-105.0); MEAN CORPUSCULAR HEMOGLOBIN 31.3 pg (25.0-35.0); MEAN CORPUSCULAR HGB CONC 33.5 g/dl (31.0-37.0); MONO # 0.5 (0.1-0.6); MONO % 10.9 % (1.0-6.0); PLATELET COUNT 210 10^3/uL (120.0-450.0); RED CELL DISTRIBUTION WIDTH 17.8 % (11.5-14.5); WHITE BLOOD COUNT 4.7 10^3/ul (4.5-11.0)
[2016-07-23] MEDS: Potassium Chloride 10 mEq ER Tab PO SCH (08:42)
[2016-07-23 08:43] LABS: ALB/GLOB RATIO 0.9 (1.1-1.8); BILIRUBIN,TOTAL 0.9 mg/dL (0.2-1.3); POTASSIUM 3.7 mmol/L (3.6-5.0)
--- NOTE | 2016-07-23 09:27 | CP.PCM.PN ---
<Gray Singh - Last Filed: 07/23/16 10:32> Subjective - Date & Time of Evaluation Date of Evaluation: 07/23/16 Time of Evaluation: 07:10 - Subjective Subjective: Hospitalist Progress Note: Pt seen and examined at bedside. No acute events overnight. Pt states that the shortness of her breath and the swelling of her legs although present is better than yesterday. No other complaints. Denies any headaches, dizziness, f/c, sob, cp, palpitations, abd pain, n/v, urinary or bm changes. Objective - Vital Signs/Intake and Output Vital Signs (last 24 hours): Temp Pulse Resp BP Pulse Ox 96.2 F L 95 H 19 115/75 95 07/23/16 00:01 07/23/16 00:01 07/23/16 00:01 07/23/16 00:01 07/23/16 00:01 Intake and Output: 07/23/16 07/23/16 06:59 18:59 Intake Total 360 Output Total 1000 Balance -640 - Medications Medications: Current Medications Aspirin (Ecotrin) 81 mg PO DAILY [facility] Last Admin: 07/22/16 09:03 Dose: 81 mg Atorvastatin Calcium (Lipitor) 20 mg PO DIN [facility] Last Admin: 07/22/16 16:57 Dose: 20 mg Efavirenz/Emtricitabine/Tenofovir (Atripla 600 Mg-200 Mg-300 Mg) 1 tab PO DAILY [facility] Last Admin: 07/22/16 09:03 Dose: 1 tab Enoxaparin Sodium (Lovenox) 60 mg SC Q12H [facility] PRN Reason: Protocol Last Admin: 07/22/16 13:06 Dose: 60 mg Famotidine (Pepcid) 40 mg PO HS [facility] Last Admin: 07/22/16 22:13 Dose: Not Given Furosemide (Lasix) 80 mg IVP Q12H [facility] Lisinopril (Zestril) 10 mg PO DAILY [facility] Last Admin: 07/22/16 09:02 Dose: 10 mg Metoprolol Tartrate (Lopressor) 25 mg PO 0800,1800 [facility] Last Admin: 07/23/16 08:43 Dose: 25 mg Metoprolol Tartrate (Lopressor) 5 mg IVP Q8 PRN PRN Reason: Systolic Blood Pressure Nicotine (Nicoderm Cq) 1 patch TD DAILY [facility] Last Admin: 07/22/16 10:36 Dose: Not Given Potassium Chloride (Klor-Con 10) 10 meq PO BRK [facility] Last Admin: 07/23/16 08:42 Dose: 10 meq Spironolactone (Aldactone) 25 mg PO DAILY [facility] Last Admin: 07/22/16 09:03 Dose: 25 mg - Labs Labs: 07/23/16 07:40 07/23/16 07:40 PT 12.6 Seconds (9.9-11.8) H 07/20/16 13:20 INR 1.17 (0.93-1.08) H 07/20/16 13:20 APTT 27.8 Seconds (23.7-30.8) 07/20/16 13:20 - Constitutional Appears: No Acute Distress - Head Exam Head Exam: ATRAUMATIC, NORMAL INSPECTION, NORMOCEPHALIC - Eye Exam Eye Exam: EOMI, Normal appearance, PERRL Pupil Exam: NORMAL ACCOMODATION, PERRL - ENT Exam ENT Exam: Mucous Membranes Moist, Normal Exam - Neck Exam Neck Exam: Full ROM, Normal Inspection. absent: Lymphadenopathy - Respiratory Exam Respiratory Exam: Clear to Ausculation Bilateral, Rales, NORMAL BREATHING PATTERN. absent: Rhonchi, Wheezes Additional comments: b/l Bases - Cardiovascular Exam Cardiovascular Exam: REGULAR RHYTHM, +S1, +S2. absent: Murmur - GI/Abdominal Exam GI & Abdominal Exam: Soft, Normal Bowel Sounds. absent: Distended, Tenderness - Extremities Exam Extremities Exam: Full ROM, Normal Capillary Refill, Normal Inspection. absent : Joint Swelling, Pedal Edema Additional comments: 2+ pitting edema in b/l lower ext - Back Exam Back Exam: NORMAL INSPECTION - Neurological Exam Neurological Exam: Alert, Awake, Oriented x3 - Psychiatric Exam Psychiatric exam: Normal Affect, Normal Mood - Skin Skin Exam: Dry, Intact, Normal Color, Warm Assessment and Plan - Assessment and Plan (Free Text) Assessment: 56-year-old female with past medical history of cardiomyopathy, hypertension, HIV noncompliant with medications is admitted for shortness of breath and leg swelling possibly 2/2 systolic CHF. 1. CHF exacerbation - Cont Lasix 80mg BID - F/u Cardiology recs - Lasix inc to 80mg IV BID, started Kdur 10meq, aldactone 25mg daily - Cont , Lopressor, and Zestril - Echocardiogram - EF of 25% with severely impaired systolic dys, severe mitral and tricuspid valve regurge - Lower ext doppler - neg for DVT for b/l lower etx - cardiac enzymes 3 is negative - Advised importance of elevation of lower extremity and compression stockings - Cont Aspirin, Lipitor and Spironolactone 2. Atrial flutter/A. fib with ST-T changes - Consulted EP cardiology - will f/u recs - Currently on subcutaneous Lovenox - f/u cardiology regarding need for long-term anticoagulation - Cont metoprolol, and lisinopril 3. HIV - continue Atripla - U ndetectable viral load and good CD4 count recently - Patient follows up with Dr. Axel Luna for HIv follow up 4. Mildly elevated LFTs - possibly passive congestion secondary to CHF - hepatitis profile ordered 5. GI/DVT ppx with Pepcid and Lovenox 6. Active smoking; smoking cessation advised - started on NicoDerm patch Case and plan was seen, reviewed, and discussed in detail with Dr Mustafa. <Linda Mustafa B - Last Filed: 07/23/16 21:55> Objective - Vital Signs/Intake and Output Vital Signs (last 24 hours): Temp Pulse Resp BP Pulse Ox 97.6 F 92 H 20 131/96 H 95 07/23/16 18:00 07/23/16 18:05 07/23/16 18:00 07/23/16 18:06 07/23/16 00:01 - Medications Medications: Current Medications Aspirin (Ecotrin) 81 mg PO DAILY [facility] Last Admin: 07/23/16 10:27 Dose: 81 mg Atorvastatin Calcium (Lipitor) 20 mg PO DIN [facility] Last Admin: 07/23/16 18:05 Dose: 20 mg Efavirenz/Emtricitabine/Tenofovir (Atripla 600 Mg-200 Mg-300 Mg) 1 tab PO DAILY [facility] Last Admin: 07/23/16 10:41 Dose: 1 tab Enoxaparin Sodium (Lovenox) 60 mg SC Q12H [facility] PRN Reason: Protocol Last Admin: 07/23/16 18:10 Dose: Not Given Famotidine (Pepcid) 40 mg PO HS [facility] Last Admin: 07/23/16 21:09 Dose: Not Given Furosemide (Lasix) 80 mg IVP Q12H [facility] Last Admin: 07/23/16 18:06 Dose: 80 mg Lisinopril (Zestril) 10 mg PO DAILY [facility] Last Admin: 07/23/16 10:41 Dose: 10 mg Metoprolol Tartrate (Lopressor) 25 mg PO 0800,1800 [facility] Last Admin: 07/23/16 18:05 Dose: 25 mg Metoprolol Tartrate (Lopressor) 5 mg IVP Q8 PRN PRN Reason: Systolic Blood Pressure Nicotine (Nicoderm Cq) 1 patch TD DAILY [facility] Last Admin: 07/23/16 10:51 Dose: Not Given Potassium Chloride (Klor-Con 10) 10 meq PO BRK [facility] Last Admin: 07/23/16 08:42 Dose: 10 meq Spironolactone (Aldactone) 25 mg PO DAILY [facility] Last Admin: 07/23/16 10:42 Dose: 25 mg - Labs Labs: 07/23/16 07:40 07/23/16 07:40 PT 12.6 Seconds (9.9-11.8) H 07/20/16 13:20 INR 1.17 (0.93-1.08) H 07/20/16 13:20 APTT 27.8 Seconds (23.7-30.8) 07/20/16 13:20 Attending/Attestation - Attestation I have personally seen and examined this patient.: Yes I have fully participated in the care of the patient.: Yes I have reviewed all pertinent clinical information, including history, physical exam and plan: Yes Notes (Text): I have seen and examined patient at bedside. This is 56 year old female with history of cardiomyopathy, HTN, HIV, non compliant with medications who got admitted for progressive shortness of breath and leg edema and found to have CHF exacerbation secondary to systolic CHF. Today, patient reports improvement in leg pain however still has 2+ pitting edema. Denies chest pain, sob, cough or any other complaints. She is able to talk in complete sentences. Has minimal rales. Continue IV lasix, metoprolol and lisinopril. Echo revealed that LVEF is severely impaired, severe TR and mild pulmonary hypertension. LE doppler is negative. Also has atrial flutter on subcutaneous lovenox. Continue metoprolol. Awaiting EP consult for possible radiofrequency ablation. Patient may need [facility] anticoagulation. Continue metoprolol and lisinopril. Continue atripla for HIV. Tobacco cessation is strongly advised. She also has elevated LFT's which can be due to passive congestion secondary to CHF. Will check hep panel. Discussed in detail with the patient and the director of science. Upon discharge patient will follow up with Dr Brown and Dr Axel Luna. Dr Linda Mustafa
[2016-07-23] MEDS: Efavirenz/Emtricitabine/Teno 1 TAB PO SCH (10:41)
--- NOTE | 2016-07-23 14:56 | PN ---
DATE: 07/23/2016 The patient's shortness of breath has improved. She is still experiencing significant leg swelling. PHYSICAL EXAMINATION: VITAL SIGNS: Blood pressure 131/96, heart rate 82, temperature 97.6, respiration 19. HEENT: Normocephalic. NECK: Jugular venous distention is noted. CHEST: Minimal basilar rales. HEART: S1, S2 regular. EXTREMITIES: 2+ pitting edema. LABORATORIES: Hemoglobin and hematocrit, white count and platelet count are within normal limits. T bjorn's SMA-7 is within normal limits except for BUN of 36. Venous Doppler of lower extremities is negative for DVT. Echocardiographic study revealed borderline concentric LVH with severely impaired systolic function, severe tricuspid insufficiency and mild pul monary hypertension. ASSESSMENT: 1. Exacerbation of congestive heart failure. 2. Atrial flutter. 3. Human immunodeficiency virus positive. RECOMMENDATIONS: Continue current Zestril 10 mg once a day, Lovenox 60 mg subcutaneous twice a day, Lopressor 25 mg twice a day, Lipitor 20 mg once a day, Lasix at 80 mg intravenous twice a day, Klor-C on at 10 mEq once a day, Aldactone 25 mg once a day. Case was discussed with Dr. Mustafa, the [facility] consult has been requested. Praneeth Rowley MD cc: [id number] TT: 07/23/2016 14:56:07 Confirmation # [id number] Dictation # [id number]
[2016-07-23] MEDS: Enoxaparin 60 mg Syringe SC SCH (18:10)
[2016-07-23 20:31] VITALS: RESP 20
[2016-07-24] MEDS: Enoxaparin 60 mg Syringe SC SCH (04:27)
[2016-07-24 05:24] VITALS: BP 126/63
[2016-07-24 05:37] VITALS: PULSE 90; TEMP 97.6; O2SAT 98
[2016-07-24 08:22] LABS: ADD MANUAL DIFF? NO; BASO # 0.03 K/mm3 (0.0-2.0); BASO % 0.6 % (0.0-3.0); EOS # 0.1 (0.0-0.7); EOS % 1.6 % (1.5-5.0); GRAN # 2.48 (1.4-6.5); HEMATOCRIT 41.8 % (36.0-48.0); LYMPH # 1.8 (1.2-3.4); LYMPH % 35.7 % (22.0-35.0); MEAN CELL VOLUME 93.3 fL (80.0-105.0); MEAN CORPUSCULAR HEMOGLOBIN 30.8 pg (25.0-35.0); MEAN PLATELET VOLUME 9.3 fl (7.0-11.0); MONO # 0.6 (0.1-0.6); MONO % 12.1 % (1.0-6.0); PLATELET COUNT 221 10^3/uL (120.0-450.0); RED CELL DISTRIBUTION WIDTH 17.8 % (11.5-14.5)
[2016-07-24 08:29] LABS: ALB/GLOB RATIO 0.9 (1.1-1.8); BILIRUBIN,TOTAL 0.8 mg/dL (0.2-1.3); CALCIUM 9.3 mg/dL (8.4-10.5); POTASSIUM 3.6 mmol/L (3.6-5.0); TOTAL PROTEIN 7.9 g/dL (5.8-8.3)
[2016-07-24] MEDS: Potassium Chloride 10 mEq ER Tab PO SCH (10:20)
[2016-07-24] MEDS: Efavirenz/Emtricitabine/Teno 1 TAB PO SCH (10:20)
--- NOTE | 2016-07-24 11:02 | PN ---
DATE: 07/24/2016 SUBJECTIVE: The patient denies chest pain; her shortness of breath has improved as well as leg swell ing. PHYSICAL EXAMINATION: VITAL SIGNS: Blood pressure 126/63, heart rate 90, temperature 97.6, respirations 20. HEENT: Normocephalic. NECK: Jugular venous distention is noted. CHEST: Bilateral rhonchi. HEART: S1, S2 regular. EXTREMITIES: 2+ pitting edema. LABORATORIES: Today's SMA-7 is within normal limits except for BUN of 46. ASSESSMENT: 1. Exacerbation of congestive heart failure. 2. Atrial flutter. 3. Mild prerenal azotemia. 4. Human immunodeficiency virus positive. RECOMMENDATIONS: Continue current Aldactone, aspirin, Klor-Con, reduce Lasix to 40 mg intravenously twice a day. Continue Lopressor and Zestril. The patient was evaluated by Dr. Serrano today who offe red her EP study and possible ablation. However, the patient refused this idea and she elected to go home today. The patient will follow up with her primary physician, Dr. Clay. Usp anticoagu lation is definitely not justified and in view of the patient's very poor. Compliance, that can be d ecided by the primary physician if she adheres to outpatient followup. Praneeth Rowley MD cc: [id number] TT: 07/24/2016 11:01:46 Confirmation # [id number] Dictation # [id number]
--- NOTE | 2016-07-24 13:28 | CP.PCM.DIS ---
<Gray Singh - Last Filed: 07/24/16 13:15> Provider - Provider Date of Admission: 07/20/16 14:36 Attending physician: Linda Mustafa MD Primary care physician: Felice Brown MD Consults: Cardiology, EP Cardiology Time Spent in preparation of Discharge (in minutes): 45 Hospital Course - Lab Results Lab Results: Most Recent Lab Values WBC 5.0 10^3/ul (4.5-11.0) 07/24/16 07:00 RBC 4.48 10^6/uL (3.5-6.1) 07/24/16 07:00 Hgb 13.8 gm/dL (12.0-16.0) 07/24/16 07:00 Hct 41.8 % (36.0-48.0) 07/24/16 07:00 MCV 93.3 fL (80.0-105.0) 07/24/16 07:00 MCH 30.8 pg (25.0-35.0) 07/24/16 07:00 MCHC 33.0 g/dl (31.0-37.0) 07/24/16 07:00 RDW 17.8 % (11.5-14.5) H 07/24/16 07:00 Plt Count 221 10^3/uL (120.0-450.0) 07/24/16 07:00 MPV 9.3 fl (7.0-11.0) 07/24/16 07:00 Gran % 50.0 % (50.0-68.0) 07/24/16 07:00 Lymph % (Auto) 35.7 % (22.0-35.0) H 07/24/16 07:00 [place] % (Auto) 12.1 % (1.0-6.0) H 07/24/16 07:00 Eos % (Auto) 1.6 % (1.5-5.0) 07/24/16 07:00 Baso % (Auto) 0.6 % (0.0-3.0) 07/24/16 07:00 Gran # 2.48 (1.4-6.5) 07/24/16 07:00 Lymph # 1.8 (1.2-3.4) 07/24/16 07:00 [place] # 0.6 (0.1-0.6) 07/24/16 07:00 Eos # 0.1 (0.0-0.7) 07/24/16 07:00 Baso # 0.03 K/mm3 (0.0-2.0) 07/24/16 07:00 PT 12.6 Seconds (9.9-11.8) H 07/20/16 13:20 INR 1.17 (0.93-1.08) H 07/20/16 13:20 APTT 27.8 Seconds (23.7-30.8) 07/20/16 13:20 Sodium 138 mmol/L (132-148) 07/24/16 05:30 Potassium 3.6 mmol/L (3.6-5.0) 07/24/16 05:30 Chloride 101 mmol/L (95-110) 07/24/16 05:30 Carbon Dioxide 25 mmol/L (21-33) 07/24/16 05:30 Anion Gap 16 (10-20) 07/24/16 05:30 BUN 46 mg/dL (7-21) H 07/24/16 05:30 Creatinine 1.3 mg/dL (0.5-1.4) 07/24/16 05:30 Est GFR ( Amer) 51 07/24/16 05:30 Est GFR (Non-Af Amer) 42 07/24/16 05:30 Random Glucose 102 mg/dL (70-110) 07/24/16 05:30 Calcium 9.3 mg/dL (8.4-10.5) 07/24/16 05:30 Magnesium 2.2 mg/dL (1.7-2.2) 07/20/16 13:20 Total Bilirubin 0.8 mg/dL (0.2-1.3) 07/24/16 05:30 AST 56 U/L (15-39) H 07/24/16 05:30 ALT 48 U/L (7-56) 07/24/16 05:30 Alkaline Phosphatase 360 U/L (38-133) H 07/24/16 05:30 Lactate Dehydrogenase 605 U/L (333-699) 07/21/16 06:41 Total Creatine Kinase 78 U/L (35-230) 07/21/16 06:41 Troponin I 0.04 ng/mL 07/21/16 06:41 NT-Pro-B Natriuret Pep 5130 pg/mL (0-450) H 07/21/16 12:10 Total Protein 7.9 g/dL (5.8-8.3) 07/24/16 05:30 Albumin 3.7 g/dL (3.0-4.8) 07/24/16 05:30 Globulin 4.2 gm/dL 07/24/16 05:30 Albumin/Globulin Ratio 0.9 (1.1-1.8) L 07/24/16 05:30 Triglycerides 73 mg/dL (35-160) 07/21/16 06:41 Cholesterol 159 mg/dL (130-200) 07/21/16 06:41 LDL Cholesterol Direct 100 mg/dL (0-129) 07/21/16 06:41 HDL Cholesterol 32 mg/dL (29-60) 07/21/16 06:41 TSH 3rd Generation 3.01 mIU/mL (0.46-4.68) 07/20/16 14:00 Urine Color Yellow (YELLOW) 07/20/16 15:00 Urine Appearance Clear (CLEAR) 07/20/16 15:00 Urine pH 6.0 (4.7-8.0) 07/20/16 15:00 Ur Specific [place] 1.025 (1.005-1.035) 07/20/16 15:00 Urine Protein 100 mg/dL (<30 mg/dL) H 07/20/16 15:00 Urine Glucose (UA) Negative mg/dL (NEGATIVE) 07/20/16 15:00 Urine Ketones Negative mg/dL (NEGATIVE) 07/20/16 15:00 Urine Blood Trace-intact (NEGATIVE) H 07/20/16 15:00 Urine Nitrate Negative (NEGATIVE) 07/20/16 15:00 Urine Bilirubin Negative (NEGATIVE) 07/20/16 15:00 Urine Urobilinogen 0.2 E.U./dL (<1 E.U./dL) 07/20/16 15:00 Ur Leukocyte Esterase Negative Maximo/uL (NEGATIVE) 07/20/16 15:00 Urine RBC 1 - 3 /hpf (0-2) 07/20/16 15:00 Urine WBC 0 - 2 /hpf (0-6) 07/20/16 15:00 Ur Epithelial Cells 0 - 2 /hpf (0-5) 07/20/16 15:00 Hepatitis A IgM Ab Negative (NEGATIVE) 07/24/16 05:30 Hep Bs Antigen Negative (NEGATIVE) 07/24/16 05:30 Hep B Core IgM Ab Negative (NEGATIVE) 07/24/16 05:30 Hepatitis C Antibody Negative (NEGATIVE) 07/24/16 05:30 - Hospital Course Hospital Course: 56-year-old female with past medical history of cardiomyopathy, hypertension, HIV noncompliant with medications presented with shortness of breath and leg swelling. Basic labs were done in the ED. Troponin were negative x 3. BNP 3940. CXR showed no active disease. Patient was given Lasix 40mg and was admitted for CHF exacerbation. Cardiology was consulted. Lasix 40mg BID was started but patient was non compliant with a few of the doses. The importance of Lasix was explained to her and patient resumed taking her meds. Lasix 80mg BID IVP was started. Patient leg swelling started to decrease. Pt had a negative Dopplers of b/l lower ext. Echo showed EF of 25% with severely impaired systolic dys, severe mitral and tricuspid valve regurge. Patient was also found to have atrial flutter and was placed on lovenox. EP cardiology was consulted for recs. At this point patient insisted on living against medical advice. The importance of her medical condition was explained to her. The risk of arrhythmia, CHF, KS, Stroke, Sepsis, and was explained to her and she showed understanding of the risk of living AMA. Her medicationswas sent to her pharmacy. Pt was told to come back to the ED if her symptoms recur. Diagnosis: CHF exacerbation / Leg swelling Discharge Exam - Head Exam Head Exam: ATRAUMATIC, NORMAL INSPECTION, NORMOCEPHALIC - Eye Exam Eye Exam: EOMI, Normal appearance, PERRL Pupil Exam: NORMAL ACCOMODATION, PERRL - ENT Exam ENT Exam: Mucous Membranes Moist - Respiratory Exam Respiratory Exam: Clear to PA & Lateral, NORMAL BREATHING PATTERN. absent: Rales, Wheezes - Cardiovascular Exam Cardiovascular Exam: REGULAR RHYTHM, RRR, +S1, +S2 - GI/Abdominal Exam GI & Abdominal Exam: Normal Bowel Sounds, Soft. absent: Distended - Neurological Exam Neurological exam: Alert, Oriented x3, Reflexes Normal - Psychiatric Exam Psychiatric exam: Normal Affect, Normal Mood - Skin Skin Exam: Dry, Intact, Normal Color, Warm Discharge Plan - Discharge Medications Prescriptions: Aspirin [Ecotrin] 81 mg PO DAILY #30 tabec Atorvastatin [Lipitor] 10 mg PO DIN #30 tab Efavirenz/Emtricitabine/Teno [Atripla 600 MG-200 MG-300 MG] 1 tab PO HS #30 tab Furosemide [Lasix] 40 mg PO BID #60 tablet Lisinopril [Prinivil] 10 mg PO DAILY #30 tablet Metoprolol Tartrate [Lopressor] 25 mg PO BID #60 tab Potassium Chloride [Klor-Con 10] 10 meq PO BRK #30 ter Spironolactone [Aldactone] 25 mg PO DAILY #30 tab - Follow Up Plan Condition: FAIR Disposition: AGAINST MEDICAL ADVICE Instructions: Heart Failure (DC), Heart Failure (GEN), Pacemaker (DC), Pacemaker (GEN), Pulmonary Edema (DC), Pulmonary Edema (GEN), Ascites (DC), Ascites (GEN) Additional Instructions: Return back to the ED if your symptoms recur again. F/U with your PMD within 1 week. Referrals: Felice Brown [Primary Care Provider] - <Linda Mustafa - Last Filed: 07/24/16 14:50> Provider - Provider Date of Admission: 07/20/16 14:36 Attending physician: Linda Mustafa MD Primary care physician: Felice Brown MD Hospital Course - Lab Results Lab Results: Most Recent Lab Values WBC 5.0 10^3/ul (4.5-11.0) 07/24/16 07:00 RBC 4.48 10^6/uL (3.5-6.1) 07/24/16 07:00 Hgb 13.8 gm/dL (12.0-16.0) 07/24/16 07:00 Hct 41.8 % (36.0-48.0) 07/24/16 07:00 MCV 93.3 fL (80.0-105.0) 07/24/16 07:00 MCH 30.8 pg (25.0-35.0) 07/24/16 07:00 MCHC 33.0 g/dl (31.0-37.0) 07/24/16 07:00 RDW 17.8 % (11.5-14.5) H 07/24/16 07:00 Plt Count 221 10^3/uL (120.0-450.0) 07/24/16 07:00 MPV 9.3 fl (7.0-11.0) 07/24/16 07:00 Gran % 50.0 % (50.0-68.0) 07/24/16 07:00 Lymph % (Auto) 35.7 % (22.0-35.0) H 07/24/16 07:00 [place] % (Auto) 12.1 % (1.0-6.0) H 07/24/16 07:00 Eos % (Auto) 1.6 % (1.5-5.0) 07/24/16 07:00 Baso % (Auto) 0.6 % (0.0-3.0) 07/24/16 07:00 Gran # 2.48 (1.4-6.5) 07/24/16 07:00 Lymph # 1.8 (1.2-3.4) 07/24/16 07:00 [place] # 0.6 (0.1-0.6) 07/24/16 07:00 Eos # 0.1 (0.0-0.7) 07/24/16 07:00 Baso # 0.03 K/mm3 (0.0-2.0) 07/24/16 07:00 PT 12.6 Seconds (9.9-11.8) H 07/20/16 13:20 INR 1.17 (0.93-1.08) H 07/20/16 13:20 APTT 27.8 Seconds (23.7-30.8) 07/20/16 13:20 Sodium 138 mmol/L (132-148) 07/24/16 05:30 Potassium 3.6 mmol/L (3.6-5.0) 07/24/16 05:30 Chloride 101 mmol/L (95-110) 07/24/16 05:30 Carbon Dioxide 25 mmol/L (21-33) 07/24/16 05:30 Anion Gap 16 (10-20) 07/24/16 05:30 BUN 46 mg/dL (7-21) H 07/24/16 05:30 Creatinine 1.3 mg/dL (0.5-1.4) 07/24/16 05:30 Est GFR ( Amer) 51 07/24/16 05:30 Est GFR (Non-Af Amer) 42 07/24/16 05:30 Random Glucose 102 mg/dL (70-110) 07/24/16 05:30 Calcium 9.3 mg/dL (8.4-10.5) 07/24/16 05:30 Magnesium 2.2 mg/dL (1.7-2.2) 07/20/16 13:20 Total Bilirubin 0.8 mg/dL (0.2-1.3) 07/24/16 05:30 AST 56 U/L (15-39) H 07/24/16 05:30 ALT 48 U/L (7-56) 07/24/16 05:30 Alkaline Phosphatase 360 U/L (38-133) H 07/24/16 05:30 Lactate Dehydrogenase 605 U/L (333-699) 07/21/16 06:41 Total Creatine Kinase 78 U/L (35-230) 07/21/16 06:41 Troponin I 0.04 ng/mL 07/21/16 06:41 NT-Pro-B Natriuret Pep 5130 pg/mL (0-450) H 07/21/16 12:10 Total Protein 7.9 g/dL (5.8-8.3) 07/24/16 05:30 Albumin 3.7 g/dL (3.0-4.8) 07/24/16 05:30 Globulin 4.2 gm/dL 07/24/16 05:30 Albumin/Globulin Ratio 0.9 (1.1-1.8) L 07/24/16 05:30 Triglycerides 73 mg/dL (35-160) 07/21/16 06:41 Cholesterol 159 mg/dL (130-200) 07/21/16 06:41 LDL Cholesterol Direct 100 mg/dL (0-129) 07/21/16 06:41 HDL Cholesterol 32 mg/dL (29-60) 07/21/16 06:41 TSH 3rd Generation 3.01 mIU/mL (0.46-4.68) 07/20/16 14:00 Urine Color Yellow (YELLOW) 07/20/16 15:00 Urine Appearance Clear (CLEAR) 07/20/16 15:00 Urine pH 6.0 (4.7-8.0) 07/20/16 15:00 Ur Specific [place] 1.025 (1.005-1.035) 07/20/16 15:00 Urine Protein 100 mg/dL (<30 mg/dL) H 07/20/16 15:00 Urine Glucose (UA) Negative mg/dL (NEGATIVE) 07/20/16 15:00 Urine Ketones Negative mg/dL (NEGATIVE) 07/20/16 15:00 Urine Blood Trace-intact (NEGATIVE) H 07/20/16 15:00 Urine Nitrate Negative (NEGATIVE) 07/20/16 15:00 Urine Bilirubin Negative (NEGATIVE) 07/20/16 15:00 Urine Urobilinogen 0.2 E.U./dL (<1 E.U./dL) 07/20/16 15:00 Ur Leukocyte Esterase Negative [place]/uL (NEGATIVE) 07/20/16 15:00 Urine RBC 1 - 3 /hpf (0-2) 07/20/16 15:00 Urine WBC 0 - 2 /hpf (0-6) 07/20/16 15:00 Ur Epithelial Cells 0 - 2 /hpf (0-5) 07/20/16 15:00 Hepatitis A IgM Ab Negative (NEGATIVE) 07/24/16 05:30 Hep Bs Antigen Negative (NEGATIVE) 07/24/16 05:30 Hep B Core IgM Ab Negative (NEGATIVE) 07/24/16 05:30 Hepatitis C Antibody Negative (NEGATIVE) 07/24/16 05:30 Attending/Attestation - Attestation I have personally seen and examined this patient.: Yes I have fully participated in the care of the patient.: Yes I have reviewed all pertinent clinical information, including history, physical exam and plan: Yes Notes (Text): I have seen and examined patient at bedside. This is 56 year old female with history of cardiomyopathy, HTN, HIV, non compliant with medications who got admitted for progressive shortness of breath and leg edema and found to have CHF exacerbation secondary to systolic CHF. Today, patient reports improvement in leg pain , leg edema and shortness of breath. Denies chest pain, cough or any other complaints. She is able to talk in complete sentences. She does not have rales. We can start her on PO lasix today and continue metoprolol and lisinopril. Echo revealed that LVEF is severely impaired, severe TR and mild pulmonary hypertension. LE doppler is negative. Also has atrial flutter on subcutaneous lovenox. Continue metoprolol. EP consult appreciated for possible radiofrequency ablation however patient declined. Patient may need mcfp anticoagulation however she seems to be poor candidate as she has been very non compliant. Continue metoprolol and lisinopril. Continue atripla for HIV. Tobacco cessation is strongly advised. She also has elevated LFT's which can be due to passive congestion secondary to CHF. Hep panel is negative. Discussed in detail with the patient and the hand sample maker. Today patient decided to leave AMA. All the risks were explained to the patient and patient verbalized understanding. Upon discharge patient will follow up with Dr Brown and Dr Axel Luna. Dr Linda Mustafa
--- NOTE | 2016-07-24 20:25 | CON ---
DATE: 07/24/2016 REQUESTING PHYSICIAN: Dr. Rowley. TYPE OF CONSULTATION: Electrophysiology. REASON FOR EVALUATION: 1. Atrial flutter. 2. Dilated cardiomyopathy. 3. Hypertension. Thank you very much for this consult. HISTORY OF PRESENT ILLNESS: The patient is a 56-year-old -[place] female with past medical h istory significant for cardiomyopathy, HIV, hypertension who was admitted with shortness of breath an d leg swelling. The patient had progressive lower extremity bilateral swelling as well as exertional dyspnea. She also had orthopnea. The patient was admitted for decompensated heart failure, found t o be in atrial flutter with rapid ventricular response. The patient is actively being treated for HI V and does see Dr. Axel Luna on a regular basis. The patient was seen in consultation by Dr. Praneeth Rowley who had asked me to see her in regards to management of atrial flutter. MEDICATIONS: The patient on admission had been on Atripla, Norvasc. ALLERGIES: The patient has no known drug allergies. SOCIAL HISTORY: The patient has a significant tobacco history, significant for social alcohol use, n o drug abuse. Lives in [place]. REVIEW OF SYSTEMS: Denies currently any chest pain. Had significant shortness of breath, currently improved after IV diuretic therapy. No nausea, vomiting, diarrhea, constipation, weight gain, second mark to lower extremity edema. No focal or generalized neurological issues. No psychosocial stressor s. PAST MEDICAL HISTORY: As mentioned in the history of present illness. FAMILY HISTORY: Noncontributory. PRIMARY PHYSICIAN: Dr. Deondre Duran. The patient has a history of cardiomyopathy, had a cardiac catheterization in 2012, which was signifi cant for nonobstructive coronary disease. Ejection fraction has been as low as 35%, up to 3 years ago. The patient has been diagnosed with a cardiomyopathy as long as 3 years ago. PHYSICAL EXAMINATION: GENERAL: She is a well-developed, well-nourished -[place] female in no acute distress. HEENT: Head is normocephalic, atraumatic. She has normal dentition. Mucous membranes appear moist. NECK: Supple, no jugular venous distention, no carotid bruits. CARDIOVASCULAR: Regular rate and rhythm. S1, S2. No S3 or S4. PMI is displaced at the midclavicul ar line. EXTREMITIES: No cyanosis, clubbing or edema. EKG on presentation on 07/20/2016 shows typical atrial flutter with controlled ventricular response, counterclockwise flutter that is; heart rate of 59 beats per minute, normal axis across the limb lead s. There is poor precordial R-wave progression, nonspecific ST changes, which are obfuscated by typi bird atrial flutter. VITAL SIGNS: Appear stable with a pulse rate of 90, blood pressure is 126/63. She is afebrile. MEDICATIONS: Currently include atorvastatin 20 mg p.o. at bedtime. Atripla 600, 200, 300 mg p.o. da fazal. Enoxaparin 60 mg subQ daily, Lasix 80 mg IV q. 12 hours, lisinopril 10 mg p.o. daily, metoprolo l tartrate 25 mg p.o. b.i.d., nicotine 1 patch daily. On review of relevant lab work, the patient has a white count of 5.5, H and H of 14.5 and 43.1, plate lets of 181, BUN and creatinine of 27 and 1.0. ALT and AST of 59 and respectively, alkaline ph osphatase of 383, albumin/globulin ratio 0.8. Hepatitis panel is negative. Of note, echocardiogram from 07/22/2016 shows an ejection fraction of what is calculated to be 25%, s everely impaired systolic function, flattened septum, mitral regurgitation is severe. ASSESSMENT AND PLAN: 1. Typical atrial flutter. I have discussed with the patient issues in regards to atrial flutter, t he need for long-term anticoagulation given her degree of cardiomyopathy. The patient is aware of joce issues and wishes to follow up as an outpatient. She is also strongly considering atrial flutter ablation. The patient again does not wish to stay for evaluation and management. At this point, wi ll be discharged home and may follow up in the office if and when she chooses. She has a long histor y of noncompliance. 2. Dilated cardiomyopathy, which may be tachycardia mediated. The patient was not on rate control a gents on admission. The patient, again, may respond to medical therapy and may have normalization of her ejection fraction. The patient is concerned of long-term issues with her dilated cardiomyopathy . The possibility of requiring a defibrillator which she does not wish to have at this time. She sargent s not had any syncope. Therefore, we will wait if and when she shows up as an outpatient. 3. Hypertension, which appears to be controlled. 4. Severe mitral regurgitation, severe tricuspid regurgitation, mild pulmonary hypertension. Case has been discussed with Dr. Praneeth Rowley. Discharge planning may continue. The patient m ay follow up in the office if she so chooses for further evaluation and management. Thank you for allowing me to participate in the care of your patient. Please do not hesitate to call for any questions in regards to her care. Stewart Serrano MD cc:Feliciano Garcia MD; Praneeth Rowley MD [id number] TT: 07/24/2016 20:24:35 Confirmation # [id number] Dictation # [id number] mn
== END 2016-07-24 11:52 | disposition left against medical advice (07) | DRG 127 ==
LOC: ED 13:11 → ERH 14:36 → 2RSO 16:37
PROVIDERS: ADMIT Internal Medicine; ATTEND Hospitalist
DX: I11.0 Hypertensive heart disease with heart failure (principal); I50.21 Acute systolic (congestive) heart failure; I48.3 Typical atrial flutter; I42.0 Dilated cardiomyopathy; I08.1 Rheumatic disorders of both mitral and tricuspid valves; Z21 Asymptomatic human immunodeficiency virus [HIV] infection status; I27.2 Other secondary pulmonary hypertension; F17.210 Nicotine dependence, cigarettes, uncomplicated; E78.00 Pure hypercholesterolemia, unspecified; R79.89 Other specified abnormal findings of blood chemistry; Z91.14 Patient's other noncompliance with medication regimen

== ENCOUNTER 2016-08-06 11:37 | Inpatient (IN) | payer MEDICAID ==
[2016-08-06 12:07] LABS: ADD MANUAL DIFF? NO
--- NOTE | 2016-08-06 12:08 | ED PDOC ---
Arrival/HPI - General Historian: Patient - History of Present Illness Time/Duration: 24 hours Symptom Onset: Gradual Symptom Course: Unchanged Severity Level: 7 <Gray Singh - Last Filed: 08/06/16 14:12> <Phil Neville - Last Filed: 08/06/16 14:30> - General Chief Complaint: Shortness Of Breath Time Seen by Provider: 08/06/16 11:38 - History of Present Illness Narrative History of Present Illness (Text): 56-year-old female with past medical history of CHF, hypertension, HIV (states she has CD4 in the 700's) noncompliant with medications presents to the ED with shortness of breath and leg swelling. Patient states that she was at her HIV doctor and was found to have heart rate of 221 in the office. She was advised to come to the ED but she came in today when she was feeling progessiveely shoirt of breath. She states that she can walk 2-5 feet than gets short of breath. Denies any sargent, dizziness, palpitations, chest pain, abd pain, n /v/d/c, or any focal deficits. 08/06/16 13:16 (Gray Singh) Past Medical History - Provider Review Nursing Documentation Reviewed: Yes - Infectious Disease Hx of Infectious Diseases: None - Tetanus Immunization Tetanus Immunization: Up to Date - Cardiac Hx Cardiac Disorders: Yes Hx Hypertension: Yes Hx Pacemaker: No - Pulmonary Hx Respiratory Disorders: Yes Hx Pneumonia: Yes - Neurological Hx Neurological Disorder: No Hx Paralysis: No - HEENT Hx HEENT Disorder: No Hx Blind: No - Renal Hx Renal Disorder: No - Endocrine/Metabolic Hx Endocrine Disorders: No - Hematological/Oncological Hx Blood Disorders: Yes Hx Blood Transfusions: No Hx Blood Transfusion Reaction: No - Integumentary Hx Dermatological Disorder: No - Musculoskeletal/Rheumatological Hx Musculoskeletal Disorders: No - Gastrointestinal Hx Gastrointestinal Disorders: No - Genitourinary/Gynecological Hx Genitourinary Disorders: No - Psychiatric Hx Psychophysiologic Disorder: No Hx Emotional Abuse: No Hx Physical Abuse: No Hx Substance Use: No - Past Surgical History Past Surgical History: No Previous - Anesthesia Hx Anesthesia Reactions: No Hx Malignant Hyperthermia: No - Suicidal Assessment Feels Threatened In Home Enviroment: No <Gray Singh - Last Filed: 08/06/16 14:12> Family/Social History Family/Social History: No Known Family HX Smoking Status: Current Some Days Smoker Hx Alcohol Use: No Hx Substance Use: No Hx Substance Use Treatment: No <Gray Singh - Last Filed: 08/06/16 14:12> Allergies/Home Meds <BriceyehudaJasea - Last Filed: 08/06/16 14:12> <Phil Neville - Last Filed: 08/06/16 14:30> Allergies/Adverse Reactions: Allergies No Known Allergies Allergy (Verified 08/06/16 11:41) Review of Systems - Review of Systems Constitutional: absent: Fatigue, Fevers Eyes: absent: Vision Changes ENT: absent: Hearing Changes Respiratory: SOB. absent: Cough Cardiovascular: absent: Chest Pain, Palpitations Gastrointestinal: absent: Abdominal Pain, Diarrhea, Nausea, Vomiting Genitourinary Female: absent: Dysuria Musculoskeletal: absent: Arthralgias, Back Pain Neurological: absent: Headache, Dizziness Endocrine: absent: Diaphoresis Psychiatric: absent: Anxiety, Depression <QuemarquiseGray - Last Filed: 08/06/16 14:12> Physical Exam Temperature: Afebrile Blood Pressure: Normal Pulse: Tachycardic Respiratory Rate: Normal Appearance: Positive for: Well-Appearing, Non-Toxic, Comfortable Pain Distress: None Mental Status: Positive for: Alert and Oriented X 3 - Systems Exam Head: Present: Atraumatic, Normocephalic Pupils: Present: PERRL Extroacular Muscles: Present: EOMI Mouth: Present: Moist Mucous Membranes Neck: Present: Normal Range of Motion Respiratory/Chest: Present: Clear to Auscultation, Good Air Exchange, Rales ( Mild ). No: Respiratory Distress, Accessory Muscle Use Cardiovascular: Present: Regular Rate and Rhythm, Normal S1, S2. No: Murmurs Abdomen: Present: Normal Bowel Sounds. No: Tenderness, Distention, Peritoneal Signs Upper Extremity: Present: Normal Inspection. No: Cyanosis, Edema Lower Extremity: Present: Normal Inspection, Edema (2+). No: CALF TENDERNESS Neurological: Present: GCS=15, CN II-XII Intact, Speech Normal Skin: Present: Warm, Dry, Normal Color. No: Rashes Psychiatric: Present: Alert, Oriented x 3, Normal Insight, Normal Concentration <FranciscoGray - Last Filed: 08/06/16 14:12> Medical Decision Making <Gray Singh - Last Filed: 08/06/16 14:12> - Lab Interpretations I have reviewed the lab results: Yes <Phil Neville - Last Filed: 08/06/16 14:30> ED Course and Treatment: Impression: 56-year-old female with past medical history of CHF, hypertension, HIV (states she has CD4 in the 700's) noncompliant with medications presents to the ED with shortness of breath and leg swelling. Differential Diagnosis included but are not limited to: CHF exac vs pneumonia vs NE vs DVT vs PE Plan: - CBC, CMP, cardiac iso, BNP, lipase, Urinalysis - stat EKG, CXR - Lasix 20mg Stat - Lower ext US -- Reassess and disposition Prior Visits: Notes and results from previous visits were reviewed. Patient last came into the emergency room on 07/20/16 for evaluation of sob, lower ext edema. Progress Notes: 08/06/16 12:36 - Ext US - negative for any DVTs b/l 08/06/16 13:11 - BNP 5560, Lasix 40mg Stat ordered EKG: Ordered, reviewed, and independently interpreted the EKG. Rate : 119 BPM Rhythm : a fib with rvr with competing conjuctional pacemaker Interpretation : incomplete RBBB, L posterior fascilcualr block, ST elevation, consider inferior injury or acute infarct Comparison : 07/19/16 a flutter with 2:1 08/06/16 13:23 (Gray Singh) Patient seen and examined with resident. Came up with treatment and disposition plan with resident. The patient is a 56 year old female who comes into the emergency department for evaluation of shortness of breath and lower extremity swelling. Additional HPI details as noted by the resident. On physical examination the patient has mild rales and 2+ pitting edema to the bilateral lower extremities. An EKG, Chest X- ray, Duplex of the bilateral lower extremities, labs work and Urinalysis ordered to rule or ACS vs. CHF exacerbation vs. Pneumonia vs. Bronchitis vs. DVT. Patient given Lasix. EKG shows Atrial fibrillation with RVR at 119 BPM with an incomplete right bundle branch block, a left posterior fascicular block, and some ST elevations. Ultrasound is negative for DVT bilateral. Chest X-ray shows vascular congestion. Case was discussed with Dr. Liao, who is aware and agrees with the plan to place the patient in Telemetry for observation for CHF exacerbation. Results and plan were discussed with the patient, who expresses understanding. Patient given the opportunity to ask question, all questions were answered and there is agreement with the plan to be admitted to the hospital. (Phil Neville) - Lab Interpretations Lab Results: 08/06/16 12:00 08/06/16 12:00 Lab Results 08/06/16 12:08: Magnesium 2.2 08/06/16 12:00: PT 12.7 H, INR 1.18 H, APTT 27.7 08/06/16 12:00: Sodium 140, Potassium 4.7, Chloride 107, Carbon Dioxide 22, Anion Gap 16, BUN 36 H, Creatinine 1.4, Est GFR ( Amer) 47, Est GFR (Non- Af Amer) 39, Random Glucose 108, Calcium 9.5, Total Bilirubin 1.4 H, AST 60 H, ALT 58 H, Alkaline Phosphatase 368 H, Lactate Dehydrogenase 680, Total Creatine Kinase 83, Troponin I 0.03 D, NT-Pro-B Natriuret Pep 5560 H, Total Protein 8.7 H, Albumin 4.0, Globulin 4.6, Albumin/Globulin Ratio 0.9 L, Lipase 73 08/06/16 12:00: WBC 4.2 L, RBC 4.72, Hgb 14.9, Hct 45.2, MCV 95.8, MCH 31.6, MCHC 33.0, RDW 17.7 H, Plt Count 231, MPV 9.5, Gran % 51.3, Lymph % (Auto) 36.6 H, [place] % (Auto) 9.5 H, Eos % (Auto) 1.4 L, Baso % (Auto) 1.2, Gran # 2.17, Lymph # 1.6, [place] # 0.4, Eos # 0.1, Baso # 0.05 - RAD Interpretation Radiology Orders: 08/06/16 11:57 CHEST PORTABLE [RAD] Routine 08/06/16 11:59 DUPLEX LOWER EXTRM VEIN BILAT [US] Stat - Medication Orders Current Medication Orders: Discontinued Medications Furosemide (Lasix) 20 mg IVP STAT STA Stop: 08/06/16 12:28 Last Admin: 08/06/16 13:16 Dose: 20 mg Furosemide (Lasix) 40 mg IVP STAT STA Stop: 08/06/16 13:11 Last Admin: 08/06/16 14:03 Dose: 40 mg - PA / WEATHER STRIP MECHANIC / Resident Statement MAGGIE has reviewed & agrees with the documentation as recorded. / has examined the patient and agrees with the treatment plan. <Gray Singh - Last Filed: 08/06/16 14:12> - PA / WEATHER STRIP MECHANIC / Resident Statement MAGGIE has reviewed & agrees with the documentation as recorded. / has examined the patient and agrees with the treatment plan. - Scribe Statement The provider has reviewed the documentation as recorded by the Scribe <Phil Neville - Last Filed: 08/06/16 14:30> - Scribe Statement Farhad Ballard Provider Scribe Attestation: All medical record entries made by the Scribe were at my direction and personally dictated by me. I have reviewed the chart and agree that the record accurately reflects my personal performance of the history, physical exam, medical decision making, and the department course for this patient. I have also personally directed, reviewed, and agree with the discharge instructions and disposition. (Phil Neville) Disposition/Present on Arrival - Present on Arrival Any Indicators Present on Arrival: No History of DVT/PE: No History of Uncontrolled Diabetes: No Urinary Catheter: No History of Decub. Ulcer: No History Surgical Site Infection Following: None - Disposition Have Diagnosis and Disposition been Completed?: Yes <Gray Singh - Last Filed: 08/06/16 14:12> - Disposition Disposition Time: 13:15 <Phil Neville - Last Filed: 08/06/16 14:30> - Disposition Diagnosis: CHF exacerbation Disposition: HOSPITALIZED Patient Problems: Current Active Problems Problem Status Onset CHF exacerbation Acute Condition: FAIR
[2016-08-06 12:12] LABS: BASO # 0.05 K/mm3 (0.0-2.0); BASO % 1.2 % (0.0-3.0); EOS # 0.1 (0.0-0.7); EOS % 1.4 % (1.5-5.0); GRAN # 2.17 (1.4-6.5); GRAN % 51.3 % (50.0-68.0); HEMATOCRIT 45.2 % (36.0-48.0); LYMPH # 1.6 (1.2-3.4); LYMPH % 36.6 % (22.0-35.0); MEAN CELL VOLUME 95.8 fL (80.0-105.0); MEAN CORPUSCULAR HEMOGLOBIN 31.6 pg (25.0-35.0); MEAN PLATELET VOLUME 9.5 fl (7.0-11.0); MONO # 0.4 (0.1-0.6); MONO % 9.5 % (1.0-6.0); PLATELET COUNT 231 10^3/uL (120.0-450.0); RED CELL DISTRIBUTION WIDTH 17.7 % (11.5-14.5); WHITE BLOOD COUNT 4.2 10^3/ul (4.5-11.0)
[2016-08-06 12:22] LABS: ALB/GLOB RATIO 0.9 (1.1-1.8); BILIRUBIN,TOTAL 1.4 mg/dL (0.2-1.3); CALCIUM 9.5 mg/dL (8.4-10.5); POTASSIUM 4.7 mmol/L (3.6-5.0); TOTAL PROTEIN 8.7 g/dL (5.8-8.3)
[2016-08-06 12:34] LABS: TROPONIN I 0.03 ng/mL
[2016-08-06 14:07] LABS: INR 1.18 (0.93-1.08); PARTIAL THROMBOPLASTIN TIME 27.7 Seconds (23.7-30.8)
--- NOTE | 2016-08-06 15:15 | RAD ---
HISTORY: sob COMPARISON: 07/20/2016 FINDINGS: LUNGS: No active pulmonary disease. PLEURA: No significant pleural effusion identified, no pneumothorax apparent. CARDIOVASCULAR: Severe cardiomegaly OSSEOUS STRUCTURES: No significant abnormalities. VISUALIZED UPPER ABDOMEN: Normal. OTHER FINDINGS: None. IMPRESSION: No active disease.
[2016-08-06] MEDS: Enoxaparin 60 mg Syringe SC SCH (15:46)
--- NOTE | 2016-08-06 15:46 | CP.PCM.HP ---
<Anneliese Pinto - Last Filed: 08/06/16 16:00> History of Present Illness - History of Present Illness History of Present Illness: PGY-1 H&P 56yo female with PMH of HIV, cardiomyopathy, CHF, HTN, a. flutter, noncompliance who presented of sob and leg swelling. Patient was recently admitted to the hospital on 07/20 for similar symptoms, patient left AMA. Patient states that the symptoms begin 2 weeks. She states that she use to be able to walk without any difficulty of sob however today patient states that she can not walk from her living room to her kitchen without becoming sob. Patient also complains of worsening orthopnea, stating she now has to use 3 pillows to sleep. Yesterday patient want to her HIv doctors office, where she was told that her heart rate was elevated to 221 and was told to come to ED. At dinora time patient did not feel any palpitations. Patient decided to come to the ED because of her worsen SOB. She reports leg tightness. She denies any fever, chill, wt loss/gain, headache, cough, palpitations, n/v/d/c, urinary symptoms. Patient states that she has been taking her lasix once a day instead of BID. She also states that she did not take her lopressor. PMH: HIV, cardiomyopathy, CHF, HTN, a. 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 Petty infectious disease: Dr. Axel Luna pharm: [facility] [phone] Present on Admission - Present on Admission Any Indicators Present on Admission: No Review of Systems - Constitutional Constitutional: absent: Chills, Fever, Headache, Weight Gain, Weight Loss - EENT Nose/Mouth/Throat: absent: Nasal Congestion, Nasal Discharge, Sore Throat - Cardiovascular Cardiovascular: Dyspnea, Orthopnea. absent: Chest Pain, Diaphoresis, Lightheadedness, Palpitations - Respiratory Respiratory: Dyspnea, Dyspnea on Exertion. absent: Cough - Gastrointestinal Gastrointestinal: absent: Abdominal Pain, Constipation, Diarrhea, Hematochezia, Nausea, Vomiting - Genitourinary Genitourinary: absent: Difficulty Urinating, Dysuria, Hematuria - Musculoskeletal Musculoskeletal: absent: Myalgias, Numbness, Tingling - Integumentary Integumentary: Swelling (bilateral legs ). absent: Rash, Wounds - Neurological Neurological: absent: Numbness, Headaches, Tingling, Weakness - Hematologic/Lymphatic Hematologic: absent: Easy Bleeding, Easy Bruising Past Patient History - Infectious Disease Hx of Infectious Diseases: None - Tetanus Immunizations Tetanus Immunization: Up to Date - Past Social History Smoking Status: Light Smoker < 10 Cigarettes Daily Alcohol: None (5 shots during weekend) - CARDIAC Hx Cardiac Disorders: Yes Hx Hypertension: Yes Hx Pacemaker: No - PULMONARY Hx Respiratory Disorders: Yes Hx Pneumonia: Yes - NEUROLOGICAL Hx Neurological Disorder: No Hx Paralysis: No - HEENT Hx HEENT Problems: No Hx Blind: No - RENAL Hx Chronic Kidney Disease: No - ENDOCRINE/METABOLIC Hx Endocrine Disorders: No - HEMATOLOGICAL/ONCOLOGICAL Hx Blood Disorders: Yes Hx Blood Transfusions: No Hx Blood Transfusion Reaction: No - INTEGUMENTARY Hx Dermatological Problems: No - MUSCULOSKELETAL/RHEUMATOLOGICAL Hx Musculoskeletal Disorders: No - GASTROINTESTINAL Hx Gastrointestinal Disorders: No - GENITOURINARY/GYNECOLOGICAL Hx Genitourinary Disorders: No - PSYCHIATRIC Hx Psychophysiologic Disorder: No Hx Emotional Abuse: No Hx Physical Abuse: No Hx Substance Use: No - SURGICAL HISTORY Hx Surgeries: No - ANESTHESIA Hx Anesthesia Reactions: No Hx Malignant Hyperthermia: No Meds Allergies/Adverse Reactions: Allergies Allergy/AdvReac Type Severity Reaction Status Date / Time No Known Allergies Allergy Verified 08/06/16 11:41 Physical Exam - Constitutional Appears: Well, No Acute Distress - Head Exam Head Exam: ATRAUMATIC, NORMOCEPHALIC - Eye Exam Eye Exam: Normal appearance - ENT Exam ENT Exam: Mucous Membranes Dry - Respiratory Exam Respiratory Exam: Clear to Auscultation Bilateral, NORMAL BREATHING PATTERN. absent: Decreased Breath Sounds, Rales, Rhonchi, Wheezes, Respiratory Distress - Cardiovascular Exam Cardiovascular Exam: Tachycardia, REGULAR RHYTHM, +S1, +S2. absent: Systolic Murmur - GI/Abdominal Exam GI & Abdominal Exam: Normal Bowel Sounds, Soft. absent: Distended, Firm, Guarding, Tenderness - Extremities Exam Additional comments: bilateral lower extremity +2 pitting edema - Neurological Exam Neurological exam: Alert, Oriented x3 - Skin Skin Exam: Dry, Intact, Normal Color, Warm Results - Vital Signs Recent Vital Signs: Last Vital Signs Temp 97.6 F 08/06/16 14:45 Pulse 118 H 08/06/16 14:45 Resp 18 08/06/16 14:45 BP 123/95 H 08/06/16 14:45 Pulse Ox 98 08/06/16 14:45 - Labs Result Diagrams: 08/06/16 12:00 08/06/16 12:00 Assessment & Plan - Assessment and Plan (Free Text) Assessment: 56yo female with PMH of HIV, cardiomyopathy, CHF, HTN, a. flutter, noncompliance who presented of sob and leg swelling 2/2 CHF exacerbation. Plan: 1. SOB and leg edema 2/2 CHF exacerbation - start lasix 40 daily IV - xopenex PRN - trops neg x1, trend trops - pro BNP elevated - repeat EKG - lower extremity edema- neg for DVT - cardiology consult 2. a. flutter - lopressor 25mg bid for rate control - lopressor 5mg q6 PRN elevated HR - lovenox 60mg q12 for anticoaugulation - consult cardiologiy - TSH from previous vist, 07/20, wnl 3. elevated LFTs - Repeat heatitis panel - liver ultrasound 4. HIV - continue atripla 5. tobacco use - [facility] patient on tabacco use GI ppx: Protonix DVT ppx: SCDs and lovenox Case seen, discussed and reviewed with attending. <Linda Mustafa B - Last Filed: 08/06/16 17:13> Results - Vital Signs Recent Vital Signs: Last Vital Signs Temp 97.6 F 08/06/16 14:45 Pulse 118 H 08/06/16 14:45 Resp 18 08/06/16 14:45 BP 123/95 H 08/06/16 14:45 Pulse Ox 98 08/06/16 14:45 - Labs Result Diagrams: 08/06/16 12:00 08/06/16 12:00 Attending/Attestation - Attestation I have personally seen and examined this patient.: Yes I have fully participated in the care of the patient.: Yes I have reviewed all pertinent clinical information: Yes Notes (Text): I have seen and examined the patient at bedside. Agree with the note above with the following additions/ exceptions: This is 56 year old female with history of HIV, cardiomyopathy (EF~25%), HTN, typical atrial flutter, non compliance with medications who recently left AMA from the hospital and presented with similar complaints including dyspnea on exertion, orthopnea, leg swelling, palpitations and found to have CHF exacerbation. In the ED, she was given lasix 60 mg IV. Currently she looks very comfortable. Lungs are clear to auscultation. CXR showed cardiomegaly. She already has received lasix for today. Will start lasix from tomorrow. EKG reviewed. Will consult cardiology. Will trend serial trop and ekg and start asa, lipitor, metoprolol, lisinopril and lovenox. Will also consult EP for possible ablation.TSH was normal on her last visit. She has elevated LFT's. She drinks alcohol on regular basis however denies going thru withdrawal. Will do liver ultrasound and check hep panel. Smoking cessation counselling provided. Upon discharge patient will follow up with Dr Axel Luna and Dr Brown. Dr Linda Mustafa
[2016-08-06 18:23] VITALS: BMI 26.4
[2016-08-06 20:47] LABS: TROPONIN I 0.03 ng/mL
[2016-08-06] MEDS ORDERED: Efavirenz/Emtricitabine/Teno 1 TAB PO SCH (22:00)
[2016-08-07] MEDS: Levalbuterol 0.63 MG/3 ML Inhal Soln UD IH PRN ×2 (02:45→22:10)
[2016-08-07] MEDS: Enoxaparin 60 mg Syringe SC SCH ×3 (04:14→17:02)
[2016-08-07 05:54] LABS: ADD MANUAL DIFF? NO
[2016-08-07 06:01] LABS: BASO # 0.02 K/mm3 (0.0-2.0); BASO % 0.5 % (0.0-3.0); EOS # 0.1 (0.0-0.7); EOS % 1.6 % (1.5-5.0); GRAN # 2.33 (1.4-6.5); GRAN % 53.6 % (50.0-68.0); HEMATOCRIT 42.8 % (36.0-48.0); LYMPH # 1.5 (1.2-3.4); LYMPH % 35.3 % (22.0-35.0); MEAN CELL VOLUME 94.3 fL (80.0-105.0); MEAN CORPUSCULAR HEMOGLOBIN 30.8 pg (25.0-35.0); MEAN CORPUSCULAR HGB CONC 32.7 g/dl (31.0-37.0); MONO # 0.4 (0.1-0.6); PLATELET COUNT 218 10^3/uL (120.0-450.0); RED CELL DISTRIBUTION WIDTH 17.5 % (11.5-14.5); WHITE BLOOD COUNT 4.3 10^3/ul (4.5-11.0)
[2016-08-07 06:42] LABS: ALB/GLOB RATIO 0.9 (1.1-1.8); BILIRUBIN,TOTAL 1.2 mg/dL (0.2-1.3); CALCIUM 9.1 mg/dL (8.4-10.5); POTASSIUM 4.3 mmol/L (3.6-5.0); TOTAL PROTEIN 7.7 g/dL (5.8-8.3)
[2016-08-07 06:50] LABS: TROPONIN I 0.04 ng/mL
--- NOTE | 2016-08-07 07:47 | CARD ---
APPROVED REPORT EKG Measurement Heart [id number] <Conclusion> Sinus tachycardia vs A. Flutter or atrial tachycardia with 2: 1 conduction. Suggest clinical correlation RBBB STTW changes RAD Prolonged QTc
[2016-08-07] MEDS: Pantoprazole 40 mg EC Tab PO SCH (10:15)
[2016-08-07] MEDS: Milrinone 20mg/100ml D5W 100 ML IV PRN (10:31)
--- NOTE | 2016-08-07 10:45 | US ---
HISTORY: elevated LFTs COMPARISON: None. TECHNIQUE: Sonographic evaluation of the right upper quadrant of the abdomen. FINDINGS: LIVER: Measures 15.6 x 14.1 cm in length. Diffuse increased echogenicity of the liver parenchyma. No mass. No intrahepatic bile duct dilatation. GALLBLADDER: Gallbladder wall thickness top-normal to minimally thickened 3.4 mm. Trace ascites noted - this can contribute to this appearance No gallstones. No sonographic Hastings sign reported COMMON BILE DUCT: Measures 5 mm. No stones. No dilatation. PANCREAS: Unremarkable as visualized. No mass. No ductal dilatation. RIGHT KIDNEY: Measures 10.5 cm in length. Normal echogenicity. No calculus, mass, or hydronephrosis. AORTA: No aneurysmal dilatation. IVC: Unremarkable. OTHER FINDINGS: None . IMPRESSION: Diffuse increased echogenicity throughout the liver consistent with fatty liver. Trace ascites
--- NOTE | 2016-08-07 10:52 | CON ---
DATE: 08/07/2016 REASON FOR CONSULTATION: Cardiac evaluation, admitted with decompensated congestive heart failure. BRIEF CLINICAL HISTORY: This is a 56-year-old female with past medical history of HIV, cardiomyopath y, CHF, history of flutter, noncompliance, came in with shortness of breath. The patient was admitte d 07/20 with the same symptoms and signed out AMA. The patient said that she is being followed by Dr. Cunningham who advised admission, to come to the [facility]. Denies any chest pain, but co mplained of progressive shortness of breath and leg swelling. PAST MEDICAL HISTORY: Significant for HIV, cardiomyopathy, CHF, hypertension, history of flutter and noncompliance of the medication as well. SOCIAL HISTORY: Smokes half a pack a day. Denies any history of alcohol abuse. FAMILY HISTORY: History of prostate CA. Sister with liver cancer. PAST SURGICAL HISTORY: No significant surgical history. PREVIOUS CARDIAC WORKUP: As follows: History of cardiac catheterization on ____ that reveals nonobstructive coronary artery disease, cardiomyopathy, possible nonischemic; mild CAD. Suggested A ICD implantation if EF remains below 35 dated ____. At that time, cardiac catheterization reve aled left main free of significant disease, bifurcated to LAD, circumflex, LAD 40-50% stenosis in the mid segment, diagonal 2 is small caliber, 60-70% stenosis, less than 2 mm vessel. Circumflex shows luminal irregularity, no flow obstructive stenosis noted. RCA has 30-40% stenosis noted. Ejection f raction 35%. EDP was in the range of 20. Most recently, the patient had echocardiography 07/22/2016 that showed left ventricle normal size, borderline concentric LVH, systolic function is severely imp aired, flattening of septum, severe mitral regurgitation, severe tricuspid regurgitation, pulmonary h ypertension, RV systolic pressure of 39. Calculated ejection fraction 25%. REVIEW OF SYSTEMS: As per HPI. PHYSICAL EXAMINATION: VITAL SIGNS: Temperature afebrile, heart rate 100, blood pressure 108/69. HEENT: PERRLA. Extraocular muscles intact. NECK: Supple. No carotid bruits. No thyromegaly. CHEST: Clear to auscultation. HEART: S1, S2 regular. ABDOMEN: Soft. EXTREMITIES: Clubbing, cyanosis negative. 2+ pedal edema noted. LABORATORY DATA: Blood workup as follows: WBC 4.3, hemoglobin 14, hematocrit 42.8, platelet count 2 18. Chemistry shows sodium 130, potassium 4.3, chloride 108, carbon dioxide 18, anion gap of 16, BUN 41, creatinine 1.4. Troponin 0.04. IMPRESSION: No evidence of acute myocardial infarction, nonischemic cardiomyopathy, status post card iac catheterization 05/25/____, nonobstructive coronary artery disease, nonischemic cardiomyopathy. Recent echo shows ejection fraction 20%, moderate mitral regurgitation, severe tricuspid regurgitatio n, right ventricular systolic pressure 39, chronic atrial fibrillation, human immunodeficiency virus positive, renal insufficiency. RECOMMENDATION: Continue diuretics. We will start low dose of Primacor for 24-48 hours. The patien t needs to be followed up by Dr. Serrano for possible AICD evaluation. Continue aspirin. Continue La six, continue atorvastatin, continue metoprolol, continue enoxaparin, long-term suggest to start anti coagulation for A-fib/flutter, history of HIV positive. We will follow with you. Thank you, Dr. Liao, for providing us the opportunity in taking care of the patient. We will follow with you. We will get 24-48 hours of Primacor. Aidan Whitaker MD cc: [id number] TT: 08/07/2016 10:51:36 Confirmation # [id number] Dictation # [id number] tn
--- NOTE | 2016-08-07 11:29 | CARD ---
APPROVED REPORT EKG Measurement Heart [id number] <Conclusion> Atrial flutter with variable AV block Incomplete right bundle branch block Right ventricular hypertrophy with repolarization abnormality Abnormal ECG
--- NOTE | 2016-08-07 13:36 | CP.PCM.PN ---
<Anneliese Pinto - Last Filed: 08/07/16 13:32> Subjective - Date & Time of Evaluation Date of Evaluation: 08/07/16 Time of Evaluation: 13:32 - Subjective Subjective: PGY-1 Medicine progress note Patient seen and examined at bedside. No acute distress. Nurse reports no acute events overnight. Patient states that the SOB has somewhat improved however she continues to report sob with mild exertion. Patients states that she becomes sob when going to the bathroom. Patient states that the breathing treatment also helped improve her breathing. She also reports increased urination, no dysuria. She denies fever, chills, n/v, d/c. Objective - Vital Signs/Intake and Output Vital Signs (last 24 hours): Temp Pulse Resp BP Pulse Ox 97.4 F L 114 H 17 122/89 100 08/07/16 12:50 08/07/16 12:50 08/07/16 12:50 08/07/16 12:50 08/07/16 06:00 - Medications Medications: Current Medications Acetaminophen (Tylenol 325mg Tab) 650 mg PO Q4H PRN PRN Reason: Pain, moderate (4-7) Last Admin: 08/07/16 00:09 Dose: 650 mg Aspirin (Ecotrin) 81 mg PO DAILY [facility] Last Admin: 08/07/16 10:15 Dose: 81 mg Atorvastatin Calcium (Lipitor) 10 mg PO DIN [facility] Last Admin: 08/07/16 00:10 Dose: 10 mg Digoxin (Lanoxin) 0.25 mg PO 1400 [facility] Efavirenz/Emtricitabine/Tenofovir (Atripla 600 Mg-200 Mg-300 Mg) 1 tab PO HS [facility] Last Admin: 08/06/16 22:45 Dose: 1 tab Enoxaparin Sodium (Lovenox) 60 mg SC 0600,1800 [facility] PRN Reason: Protocol Last Admin: 08/07/16 06:27 Dose: 60 mg Furosemide (Lasix) 40 mg IVP 0800,1400 [facility] Milrinone Lactate/Dextrose (Primacor 20mg/100ml D5w) 100 mls @ 4.082 mls/hr IV .Q24H PRN; Protocol; 0.2 MCG/KG/MIN PRN Reason: TITRATE PER MD ORDER Stop: 08/09/16 07:00 Last Admin: 08/07/16 10:31 Dose: 0.2 mcg/kg/min, 4.082 mls/hr Levalbuterol HCl (Xopenex) 0.63 mg IH [id number] PRN PRN Reason: Shortness of Breath Last Admin: 08/07/16 02:45 Dose: 0.63 mg Lisinopril (Zestril) 10 mg PO DAILY [facility] Last Admin: 08/07/16 10:15 Dose: 10 mg Metoprolol Tartrate (Lopressor) 25 mg PO BID [facility] Last Admin: 08/07/16 10:15 Dose: 25 mg Pantoprazole Sodium (Protonix Ec Tab) 40 mg PO DAILY [facility] Last Admin: 08/07/16 10:15 Dose: 40 mg - Labs Labs: PT 12.7 Seconds (9.9-11.8) H 08/06/16 12:00 INR 1.18 (0.93-1.08) H 08/06/16 12:00 APTT 27.7 Seconds (23.7-30.8) 08/06/16 12:00 - Constitutional Appears: Well, No Acute Distress - Head Exam Head Exam: ATRAUMATIC, NORMOCEPHALIC - Eye Exam Eye Exam: Normal appearance - ENT Exam ENT Exam: Mucous Membranes Moist - Respiratory Exam Respiratory Exam: Rales, Respiratory Distress (mild ), NORMAL BREATHING PATTERN - Cardiovascular Exam Cardiovascular Exam: Tachycardia, REGULAR RHYTHM, +S1, +S2. absent: Murmur - GI/Abdominal Exam GI & Abdominal Exam: Soft, Normal Bowel Sounds. absent: Distended, Firm, Rigid , Tenderness - Extremities Exam Additional comments: LE bilateral +2 edema - Neurological Exam Neurological Exam: Alert, Awake, Oriented x3 - Skin Skin Exam: Dry, Intact, Normal Color, Warm Assessment and Plan - Assessment and Plan (Free Text) Assessment: 56yo female with PMH of HIV, cardiomyopathy, CHF, HTN, a. flutter, noncompliance who presented of sob and leg swelling 2/2 CHF exacerbation and a. flutter. Plan: 1. SOB and leg edema 2/2 CHF exacerbation - echo from 07/22/16 showed F of 25% - lasix increased to 40 IV BID - started on primacor per machine stapler - continue xopenex PRN - trops neg x3 - pro BNP elevated - repeat EKG showed a. flutter, rate 108 - lower extremity edema- neg for DVT - cardiology consult - EP consulted 2. a. flutter - lopressor 25mg bid for rate control - lopressor 5mg q6 PRN elevated HR - lovenox 60mg q12 for anticoaugulation - consult cardiology and EP - TSH from previous visit, 07/20, wnl 3. elevated LFTs - LFTs trending down - acute hepatitis panel was negative - liver ultrasound showed fatty liver 4. HIV - continue atripla 5. tobacco use - [facility] patient on tabacco use GI ppx: Protonix DVT ppx: SCDs and lovenox Case seen, discussed and reviewed with attending. <Linda Mustafa B - Last Filed: 08/07/16 15:47> Objective - Vital Signs/Intake and Output Vital Signs (last 24 hours): Temp Pulse Resp BP Pulse Ox 97.4 F L 116 H 17 122/89 100 08/07/16 12:50 08/07/16 14:00 08/07/16 12:50 08/07/16 12:50 08/07/16 06:00 - Medications Medications: Current Medications Acetaminophen (Tylenol 325mg Tab) 650 mg PO Q4H PRN PRN Reason: Pain, moderate (4-7) Last Admin: 08/07/16 00:09 Dose: 650 mg Aspirin (Ecotrin) 81 mg PO DAILY [facility] Last Admin: 08/07/16 10:15 Dose: 81 mg Atorvastatin Calcium (Lipitor) 10 mg PO DIN [facility] Last Admin: 08/07/16 00:10 Dose: 10 mg Digoxin (Lanoxin) 0.25 mg PO 1400 [facility] Efavirenz/Emtricitabine/Tenofovir (Atripla 600 Mg-200 Mg-300 Mg) 1 tab PO HS [facility] Last Admin: 08/06/16 22:45 Dose: 1 tab Enoxaparin Sodium (Lovenox) 60 mg SC 0600,1800 [facility] PRN Reason: Protocol Last Admin: 08/07/16 06:27 Dose: 60 mg Furosemide (Lasix) 40 mg IVP 0800,1400 [facility] Milrinone Lactate/Dextrose (Primacor 20mg/100ml D5w) 100 mls @ 4.082 mls/hr IV .Q24H PRN; Protocol; 0.2 MCG/KG/MIN PRN Reason: TITRATE PER MD ORDER Stop: 08/09/16 07:00 Last Admin: 08/07/16 10:31 Dose: 0.2 mcg/kg/min, 4.082 mls/hr Levalbuterol HCl (Xopenex) 0.63 mg IH [id number] PRN PRN Reason: Shortness of Breath Last Admin: 08/07/16 02:45 Dose: 0.63 mg Lisinopril (Zestril) 10 mg PO DAILY [facility] Last Admin: 08/07/16 10:15 Dose: 10 mg Metoprolol Tartrate (Lopressor) 25 mg PO BID [facility] Last Admin: 08/07/16 10:15 Dose: 25 mg Pantoprazole Sodium (Protonix Ec Tab) 40 mg PO DAILY [facility] Last Admin: 08/07/16 10:15 Dose: 40 mg - Labs Labs: PT 12.7 Seconds (9.9-11.8) H 08/06/16 12:00 INR 1.18 (0.93-1.08) H 08/06/16 12:00 APTT 27.7 Seconds (23.7-30.8) 08/06/16 12:00 Attending/Attestation - Attestation I have personally seen and examined this patient.: Yes I have fully participated in the care of the patient.: Yes I have reviewed all pertinent clinical information, including history, physical exam and plan: Yes Notes (Text): I have seen and examined the patient at bedside. Agree with the note above with the following additions/ exceptions: This is 56 year old female with history of HIV, cardiomyopathy (EF~25%), HTN, typical atrial flutter, non compliance with medications who recently left AMA from the hospital and presented with similar complaints including dyspnea on exertion, orthopnea, leg swelling, palpitations and found to have CHF exacerbation. Continue lasix. Cardiology consult appreciated. Primacor was stated today. Continue asa, lipitor, metoprolol, lisinopril and lasix. Awaiting EP consult. She has elevated LFT's. She drinks alcohol on regular basis however denies going thru withdrawal. Hep panel negative. Liver ultrasound revealed fatty liver and trace ascites. Smoking and alcohol cessation counselling provided. Upon discharge patient will follow up with Dr Axel Luna and Dr Brown. Dr Linda Mustafa
[2016-08-07] MEDS: Digoxin 250 mcg (0.25 mg) Tab PO SCH (15:56)
[2016-08-07] MEDS: Efavirenz/Emtricitabine/Teno 1 TAB PO SCH (17:01)
[2016-08-08] MEDS: Milrinone 20mg/100ml D5W 100 ML IV PRN (04:09)
[2016-08-08 06:38] LABS: ADD MANUAL DIFF? NO
[2016-08-08] MEDS: Enoxaparin 60 mg Syringe SC SCH (06:40)
[2016-08-08 06:57] LABS: ALB/GLOB RATIO 0.8 (1.1-1.8); CALCIUM 8.8 mg/dL (8.4-10.5); MAGNESIUM 1.9 mg/dL (1.7-2.2); PHOSPHOROUS 4.3 mg/dL (2.5-4.5); POTASSIUM 4.1 mmol/L (3.6-5.0); TOTAL PROTEIN 7.5 g/dL (5.8-8.3)
[2016-08-08 07:18] LABS: BASO # 0.07 K/mm3 (0.0-2.0); BASO % 1.6 % (0.0-3.0); EOS # 0.1 (0.0-0.7); EOS % 2.4 % (1.5-5.0); GRAN # 2.05 (1.4-6.5); GRAN % 48.3 % (50.0-68.0); HEMATOCRIT 40.7 % (36.0-48.0); LYMPH # 1.6 (1.2-3.4); LYMPH % 38.1 % (22.0-35.0); MEAN CELL VOLUME 93.6 fL (80.0-105.0); MEAN CORPUSCULAR HGB CONC 33.2 g/dl (31.0-37.0); MEAN PLATELET VOLUME 9.1 fl (7.0-11.0); MONO # 0.4 (0.1-0.6); MONO % 9.6 % (1.0-6.0); PLATELET COUNT 249 10^3/uL (120.0-450.0); RED CELL DISTRIBUTION WIDTH 17.3 % (11.5-14.5); WHITE BLOOD COUNT 4.3 10^3/ul (4.5-11.0)
--- NOTE | 2016-08-08 09:19 | PN ---
DATE: 08/08/2016 REASON FOR CONSULTATION: Cardiac evaluation with decompensated congestive heart failure, atrial fibr illation, cardiomyopathy. BRIEF CLINICAL HISTORY: In summary, a 56-year-old female with past medical history significant for H IV positive, history of cardiac catheterization 2-3 years ago, nonobstructive coronary artery disease . Recently being evaluated by Dr. Stewart Serrano for defibrillator placement. Recently, the patie nt had an echo done. There is 4-chamber dilatation, severely decreased LV function. The patient yes terday admitted with acute decompensated congestive heart failure, 2+ to 3+ pedal edema, started on I V Primacor and Lasix, having dialysis. Wrinkle starts appearing in the leg, on anticoagulation, feel s better, is lying flat with 1 pillow. No shortness of breath, no chest pain at rest. PHYSICAL EXAMINATION: VITAL SIGNS: Temperature afebrile, heart rate 80, blood pressure 130/80. HEENT: PERRLA. Extraocular muscles intact. NECK: Supple. No carotid bruits. No thyromegaly. CHEST: Clear to auscultation. HEART: S1, S2 regular. ABDOMEN: Soft. EXTREMITIES: Clubbing, cyanosis negative, 1+ to 2+ pedal edema. I's and O's pending as computer system is down. IMPRESSION: Acute decompensated congestive heart failure, acute on chronic secondary to systolic dys function, nonischemic cardiomyopathy, possibly secondary related to human immunodeficiency virus, sta tus post cardiac catheterization 2-3 years ago, nonobstructive coronary artery disease. Recent echo showed 4-chamber dilatation, mitral and tricuspid regurgitation, aortic regurgitation. RECOMMENDATION: Continue anticoagulation. Continue Primacor for next 48 hours, continue MAURIZIO inhibit ors. Continue Coreg, continue Lasix. We will discontinue Primacor tomorrow and if remains stable __ __, will be discharged. Follow up with Dr. Cody Serrano. The patient is scheduled for defibrillator placement at [facility], is scheduled to see Dr. Serrano on 08/14. I mentioned to the patient that patient needs to be followed up at [place] for AICD placement as we do not do AICD h ere, but needs to follow with Dr. Serrano. Interim, continue digoxin, diuretic, MAURIZIO inhibitors and Pr imacor for 24 hours. Discussed with the nurse taking care of the patient. We will follow the labs w hen the computer system is up. We will check the lab and appropriately correct electrolytes as neede d and also will check anticoagulation, INR level when the system is up as now the computer system is down. Thank you, Dr. Linda Mustafa, for providing us the opportunity in taking care of the patient. Aidan Whitaker MD cc: [id number] TT: 08/08/2016 09:18:48 Confirmation # [id number] Dictation # [id number] tn
[2016-08-08] MEDS: Pantoprazole 40 mg EC Tab PO SCH (10:01)
--- NOTE | 2016-08-08 11:23 | CP.PCM.PN ---
<Anneliese Pinto - Last Filed: 08/08/16 12:51> Subjective - Date & Time of Evaluation Date of Evaluation: 08/08/16 Time of Evaluation: 11:20 - Subjective Subjective: PGY-1 Medicine progress note Patient seen and examined at bedside. No acute distress. Nurse reports overnight patients heart rate increased to 122. Patient reports fatigue due to multiple trips to the bathroom overnight. She states that her SOB has improved and the edema in her legs is better. She reports increased urination, no dysuria. She denies fever, chills, n/v, d/c, headache, chest pain. Objective - Vital Signs/Intake and Output Vital Signs (last 24 hours): Temp Pulse Resp BP Pulse Ox 97.3 F L 120 H 20 117/65 96 08/08/16 06:00 08/08/16 10:01 08/08/16 06:00 08/08/16 10:01 08/08/16 00:01 Intake and Output: 08/08/16 08/08/16 06:59 18:59 Intake Total 389 Output Total 1750 Balance -1361 - Medications Medications: Current Medications Acetaminophen (Tylenol 325mg Tab) 650 mg PO Q4H PRN PRN Reason: Pain, moderate (4-7) Last Admin: 08/07/16 00:09 Dose: 650 mg Apixaban (Eliquis) 5 mg PO BID [facility] PRN Reason: Protocol Aspirin (Ecotrin) 81 mg PO DAILY [facility] Last Admin: 08/08/16 10:01 Dose: 81 mg Atorvastatin Calcium (Lipitor) 10 mg PO DIN [facility] Last Admin: 08/07/16 17:01 Dose: 10 mg Digoxin (Lanoxin) 0.25 mg PO 1400 [facility] Last Admin: 08/07/16 15:56 Dose: 0.25 mg Efavirenz/Emtricitabine/Tenofovir (Atripla 600 Mg-200 Mg-300 Mg) 1 tab PO DIN [facility] Last Admin: 08/07/16 17:01 Dose: 1 tab Furosemide (Lasix) 40 mg IVP 0800,1400 [facility] Last Admin: 08/08/16 07:23 Dose: 40 mg Milrinone Lactate/Dextrose (Primacor 20mg/100ml D5w) 100 mls @ 4.082 mls/hr IV .Q24H PRN; Protocol; 0.2 MCG/KG/MIN PRN Reason: TITRATE PER MD ORDER Stop: 08/09/16 07:00 Last Admin: 08/08/16 04:09 Dose: 0.2 mcg/kg/min, 4.082 mls/hr Levalbuterol HCl (Xopenex) 0.63 mg IH [id number] PRN PRN Reason: Shortness of Breath Last Admin: 08/07/16 22:10 Dose: 0.63 mg Lisinopril (Zestril) 10 mg PO DAILY [facility] Last Admin: 08/08/16 10:01 Dose: 10 mg Metoprolol Tartrate (Lopressor) 50 mg PO BID [facility] Pantoprazole Sodium (Protonix Ec Tab) 40 mg PO DAILY [facility] Last Admin: 08/08/16 10:01 Dose: 40 mg Verapamil HCl (Verapamil Inj) 2.5 mg IVP Q6H PRN PRN Reason: for heart rate >130 - Labs Labs: 08/08/16 06:00 08/08/16 06:00 PT 12.7 Seconds (9.9-11.8) H 08/06/16 12:00 INR 1.18 (0.93-1.08) H 08/06/16 12:00 APTT 27.7 Seconds (23.7-30.8) 08/06/16 12:00 - Constitutional Appears: Well, No Acute Distress - Head Exam Head Exam: ATRAUMATIC - Eye Exam Eye Exam: Normal appearance - ENT Exam ENT Exam: Mucous Membranes Moist - Respiratory Exam Respiratory Exam: Rhonchi (throught lung field ), NORMAL BREATHING PATTERN. absent: Respiratory Distress - Cardiovascular Exam Cardiovascular Exam: Tachycardia, REGULAR RHYTHM. absent: Murmur - GI/Abdominal Exam GI & Abdominal Exam: Soft, Normal Bowel Sounds. absent: Distended, Firm, Guarding, Tenderness - Extremities Exam Additional comments: bilat +1 pitting edema - Neurological Exam Neurological Exam: Alert, Awake, Motor Sensory Deficit, Oriented x3 - Skin Skin Exam: Dry, Intact, Normal Color, Warm Assessment and Plan - Assessment and Plan (Free Text) Assessment: 56yo female with PMH of HIV, cardiomyopathy, CHF, HTN, a. flutter, noncompliance who presented of sob and leg swelling 2/2 CHF exacerbation and a. flutter. Plan: 1. CHF exacerbation with SOB and bilateral leg edema - echo from 07/22/16 showed F of 25% - cont lasix 40 IV BID - continue xopenex PRN - cont primacor until tomorrow per supervisor loading - trops neg x3, pro BNP elevated - lower extremity edema- neg for DVT - cardiology follow - cholestrol wnl - compression stockings 2. a. flutter - repeat EKG showed a. flutter, rate 108 - cont lopressor 25mg bid for rate control - start eliquis for anticoagulation , stop lovenox - verapamil PRN - cardiology following - Patient has appointment with Dr. Steele, EP, for 08/14 - TSH wnl 3. elevated LFTs - LFTs trending down - acute hepatitis panel was negative - liver ultrasound showed fatty liver 4. HIV - continue atripla 5. tobacco use - [facility] patient on tobacco use GI ppx: Protonix DVT ppx: SCDs and eliquis Case seen, discussed and reviewed with attending. <Linda Mustafa - Last Filed: 08/08/16 16:38> Objective - Vital Signs/Intake and Output Vital Signs (last 24 hours): Temp Pulse Resp BP Pulse Ox 97.8 F 119 H 20 118/88 96 08/08/16 12:00 08/08/16 12:00 08/08/16 12:00 08/08/16 14:40 08/08/16 00:01 Intake and Output: 08/08/16 08/08/16 06:59 18:59 Intake Total 389 Output Total 1750 Balance -1361 - Medications Medications: Current Medications Acetaminophen (Tylenol 325mg Tab) 650 mg PO Q4H PRN PRN Reason: Pain, moderate (4-7) Last Admin: 08/07/16 00:09 Dose: 650 mg Apixaban (Eliquis) 5 mg PO BID [facility] PRN Reason: Protocol Aspirin (Ecotrin) 81 mg PO DAILY [facility] Last Admin: 08/08/16 10:01 Dose: 81 mg Atorvastatin Calcium (Lipitor) 10 mg PO DIN [facility] Last Admin: 08/07/16 17:01 Dose: 10 mg Digoxin (Lanoxin) 0.25 mg PO 1400 [facility] Last Admin: 08/08/16 14:41 Dose: 0.25 mg Efavirenz/Emtricitabine/Tenofovir (Atripla 600 Mg-200 Mg-300 Mg) 1 tab PO DIN [facility] Last Admin: 08/07/16 17:01 Dose: 1 tab Furosemide (Lasix) 40 mg IVP 0800,1400 [facility] Last Admin: 08/08/16 14:40 Dose: 40 mg Milrinone Lactate/Dextrose (Primacor 20mg/100ml D5w) 100 mls @ 4.082 mls/hr IV .Q24H PRN; Protocol; 0.2 MCG/KG/MIN PRN Reason: TITRATE PER MD ORDER Stop: 08/09/16 07:00 Last Admin: 08/08/16 04:09 Dose: 0.2 mcg/kg/min, 4.082 mls/hr Levalbuterol HCl (Xopenex) 0.63 mg IH [id number] PRN PRN Reason: Shortness of Breath Last Admin: 08/07/16 22:10 Dose: 0.63 mg Lisinopril (Zestril) 10 mg PO DAILY [facility] Last Admin: 08/08/16 10:01 Dose: 10 mg Metoprolol Tartrate (Lopressor) 50 mg PO BID [facility] Pantoprazole Sodium (Protonix Ec Tab) 40 mg PO DAILY [facility] Last Admin: 08/08/16 10:01 Dose: 40 mg Verapamil HCl (Verapamil Inj) 2.5 mg IVP Q6H PRN PRN Reason: for heart rate >130 - Labs Labs: 08/08/16 06:00 08/08/16 06:00 PT 12.7 Seconds (9.9-11.8) H 08/06/16 12:00 INR 1.18 (0.93-1.08) H 08/06/16 12:00 APTT 27.7 Seconds (23.7-30.8) 08/06/16 12:00 Attending/Attestation - Attestation I have personally seen and examined this patient.: Yes I have fully participated in the care of the patient.: Yes I have reviewed all pertinent clinical information, including history, physical exam and plan: Yes Notes (Text): I have seen and examined the patient at bedside. Agree with the note above with the following additions/ exceptions: This is 56 year old female with history of HIV, cardiomyopathy (EF~25%), HTN, typical atrial flutter, non compliance with medications who recently left AMA from the hospital and presented with similar complaints including dyspnea on exertion, orthopnea, leg swelling, palpitations and found to have CHF exacerbation. Patient reports that she is feeling better. Continue atripla, asa, primacor, lipitor, digoxin, metoprolol, lisinopril and lasix. Also patient was started on eliquis. Patient will follow up with EP as an outpatient. She has elevated LFT's. She drinks alcohol on regular basis however denies going thru withdrawal. Hep panel negative. Liver ultrasound revealed fatty liver and trace ascites. Smoking and alcohol cessation counselling provided. Upon discharge patient will follow up with Dr Axel Luna and Dr Brown. Dr Linda Mustafa
[2016-08-08] MEDS: Digoxin 250 mcg (0.25 mg) Tab PO SCH (14:41)
[2016-08-08 14:42] VITALS: PULSE 119
[2016-08-08] MEDS: Efavirenz/Emtricitabine/Teno 1 TAB PO SCH (17:39)
[2016-08-09] MEDS: Milrinone 20mg/100ml D5W 100 ML IV PRN (04:23)
[2016-08-09] MEDS: Levalbuterol 0.63 MG/3 ML Inhal Soln UD IH PRN (05:47)
[2016-08-09 05:58] VITALS: O2SAT 95
[2016-08-09] MEDS: Pantoprazole 40 mg EC Tab PO SCH (09:51)
--- NOTE | 2016-08-09 10:19 | PN ---
DATE: 08/09/2016 REASON FOR CONSULTATION AND FOLLOWUP: Cardiac evaluation, decompensated congestive heart failure, at rial fibrillation, cardiomyopathy, nonischemic. BRIEF CLINICAL HISTORY: A 56-year-old female with a past medical history significant for HIV positiv e, history of cardiac catheterization 2-3 years ago, nonobstructive coronary artery disease, being ev aluated by Stewart Serrano for defibrillator placement. Recently, patient had echo done, showed 4-c hamber dilatation, decreased left ventricular function, ejection fraction decreased. Admitted with 2 + pedal edema, decompensated congestive heart failure. The patient started on IV Primacor, also star quentin on Eliquis, digoxin, diuretic and MAURIZIO inhibitors. The patient was aggressively diuresed. The pa robinson is currently being planned to discharge, follow up with Dr. Stewart Serrano for pacemaker plac ement on 08/14/2016 at [facility]. PHYSICAL EXAMINATION: VITAL SIGNS: Temperature afebrile, heart rate , blood pressure 115/83. HEENT: PERRLA. Extraocular muscles intact. NECK: Supple. No carotid bruits. No thyromegaly. CHEST: Clear to auscultation. HEART: S1, S2 regular. ABDOMEN: Soft. EXTREMITIES: Clubbing, cyanosis negative. BLOOD WORKUP: WBC 4.3, hemoglobin , hematocrit 40.7, platelet count 247. Chemistry shows sodiu m , potassium 4. , chloride 107, carbon dioxide , anion gap of 13, BUN 40, creatinine 1 .3. IMPRESSION: No evidence of acute coronary syndrome, no evidence of acute myocardial infarction, hist ory of cardiac catheterization 2-3 years ago, nonobstructive coronary artery disease dated 05/25/2014, history of last echo 07/22/2016 that shows 4-chamber dilatation, severe tricuspid regurgitation, lawson re mitral regurgitation, right ventricular systolic pressure 37, calculated ejection fraction 25%, ac amy decompensated congestive heart failure secondary to systolic dysfunction, nonischemic cardiomyopa thy, human immunodeficiency virus positive, mitral regurgitation, tricuspid regurgitation. RECOMMENDATION: We will discontinue Primacor. At 7:00, it was discontinued. Discontinue baby aspir in because patient is already on Eliquis for atrial fibrillation. Continue digoxin 0.25 mg. Continu e Eliquis 5 mg twice a day. Continue Lasix 40 mg twice. Continue metoprolol 50 mg twice. Continue lisinopril 10 mg daily. Upon discharge, patient will be followed up by Dr. Stewart Serrano on 2016 for evaluation for automatic implantable cardioverter-defibrillator. Will also text Dr. Serrano regarding the patient's condition update. Aidan Whitaker MD cc: [id number] TT: 08/09/2016 10:18:55 Confirmation # [id number] Dictation # [id number]
[2016-08-09 13:05] VITALS: BP 119/75; PULSE 103; RESP 20; TEMP 97.3
--- NOTE | 2016-08-09 15:40 | CP.PCM.DIS ---
<Anneliese Pinto - Last Filed: 08/09/16 16:49> Provider - Provider Date of Admission: 08/07/16 11:56 Attending physician: Linda Mustafa MD Primary care physician: Altagracia Brown MD Time Spent in preparation of Discharge (in minutes): 60 Hospital Course - Lab Results Lab Results: Most Recent Lab Values WBC 4.3 10^3/ul (4.5-11.0) L 08/08/16 06:00 RBC 4.35 10^6/uL (3.5-6.1) 08/08/16 06:00 Hgb 13.5 gm/dL (12.0-16.0) 08/08/16 06:00 Hct 40.7 % (36.0-48.0) 08/08/16 06:00 MCV 93.6 fL (80.0-105.0) 08/08/16 06:00 MCH 31.0 pg (25.0-35.0) 08/08/16 06:00 MCHC 33.2 g/dl (31.0-37.0) 08/08/16 06:00 RDW 17.3 % (11.5-14.5) H 08/08/16 06:00 Plt Count 249 10^3/uL (120.0-450.0) 08/08/16 06:00 MPV 9.1 fl (7.0-11.0) 08/08/16 06:00 Gran % 48.3 % (50.0-68.0) L 08/08/16 06:00 Lymph % (Auto) 38.1 % (22.0-35.0) H 08/08/16 06:00 [place] % (Auto) 9.6 % (1.0-6.0) H 08/08/16 06:00 Eos % (Auto) 2.4 % (1.5-5.0) 08/08/16 06:00 Baso % (Auto) 1.6 % (0.0-3.0) 08/08/16 06:00 Gran # 2.05 (1.4-6.5) 08/08/16 06:00 Lymph # 1.6 (1.2-3.4) 08/08/16 06:00 [place] # 0.4 (0.1-0.6) 08/08/16 06:00 Eos # 0.1 (0.0-0.7) 08/08/16 06:00 Baso # 0.07 K/mm3 (0.0-2.0) 08/08/16 06:00 PT 12.7 Seconds (9.9-11.8) H 08/06/16 12:00 INR 1.18 (0.93-1.08) H 08/06/16 12:00 APTT 27.7 Seconds (23.7-30.8) 08/06/16 12:00 Sodium 137 mmol/L (132-148) 08/08/16 06:00 Potassium 4.1 mmol/L (3.6-5.0) 08/08/16 06:00 Chloride 107 mmol/L (98-107) 08/08/16 06:00 Carbon Dioxide 21 mmol/L (21-33) 08/08/16 06:00 Anion Gap 13 (10-20) 08/08/16 06:00 BUN 40 mg/dL (7-21) H 08/08/16 06:00 Creatinine 1.3 mg/dL (0.5-1.4) 08/08/16 06:00 Est GFR ( Amer) 51 08/08/16 06:00 Est GFR (Non-Af Amer) 42 08/08/16 06:00 Random Glucose 112 mg/dL (70-110) H 08/08/16 06:00 Hemoglobin A1c 6.4 % (4.2-6.5) 08/08/16 06:00 Calcium 8.8 mg/dL (8.4-10.5) 08/08/16 06:00 Phosphorus 4.3 mg/dL (2.5-4.5) 08/08/16 06:00 Magnesium 1.9 mg/dL (1.7-2.2) 08/08/16 06:00 Total Bilirubin 1.0 mg/dL (0.2-1.3) 08/08/16 06:00 AST 46 U/L (15-39) H 08/08/16 06:00 ALT 50 U/L (7-56) 08/08/16 06:00 Alkaline Phosphatase 314 U/L (38-133) H 08/08/16 06:00 Lactate Dehydrogenase 573 U/L (333-699) 08/07/16 05:45 Total Creatine Kinase 73 U/L (35-230) 08/07/16 05:45 Troponin I 0.04 ng/mL D 08/07/16 05:45 NT-Pro-B Natriuret Pep 5560 pg/mL (0-450) H 08/06/16 12:00 Total Protein 7.5 g/dL (5.8-8.3) 08/08/16 06:00 Albumin 3.3 g/dL (3.0-4.8) 08/08/16 06:00 Globulin 4.2 gm/dL 08/08/16 06:00 Albumin/Globulin Ratio 0.8 (1.1-1.8) L 08/08/16 06:00 Triglycerides 80 mg/dL (35-160) 08/08/16 06:00 Cholesterol 168 mg/dL (130-200) 08/08/16 06:00 LDL Cholesterol Direct 112 mg/dL (0-129) 08/08/16 06:00 HDL Cholesterol 35 mg/dL (29-60) 08/08/16 06:00 Lipase 73 U/L (23-300) 08/06/16 12:00 TSH 3rd Generation 1.17 mIU/mL (0.46-4.68) 08/08/16 06:00 Hepatitis A IgM Ab Negative (NEGATIVE) 08/06/16 12:00 Hep Bs Antigen Negative (NEGATIVE) 08/06/16 12:00 Hep B Core IgM Ab Negative (NEGATIVE) 08/06/16 12:00 Hepatitis C Antibody Negative (NEGATIVE) 08/06/16 12:00 - Hospital Course Hospital Course: 56yo female with PMH of HIV, cardiomyopathy, systolic CHF with EF of 25% on echo from 07/22, HTN, a. flutter, noncompliance who presented of sob and leg swelling 2/2 CHF exacerbation. Patient was start on IV lasix as well as breathing treatments. Trops were negative 3 times. Lower extremity ultrasound were neagtive for DVT. EKG showed a. flutter. Patient was given lopressor for rate control and was started on anticoaugulation. Cardiology was consulted. She was started on primacor and digoxin. TSH was within normal limits. LFTs were found to be elevated, trended down throughout hospital course. Hepatitis panel was negative. liver ultrasound showed fatty liver. CRX showed no active disease. Patient's breathing has improved. She is stable for discharge home. She is to follow up with EP, Dr. Serrano on 08/14. She was given new prescriptions for eliquis, digoxin, and metoprolol. Discharge Exam - Head Exam Head Exam: ATRAUMATIC - Eye Exam Eye Exam: Normal appearance - ENT Exam ENT Exam: Mucous Membranes Moist - Respiratory Exam Respiratory Exam: Clear to PA & Lateral, Rhonchi (mild ), NORMAL BREATHING PATTERN. absent: Rales, Wheezes, Respiratory Distress - Cardiovascular Exam Cardiovascular Exam: Tachycardia, REGULAR RHYTHM. absent: Systolic Murmur - GI/Abdominal Exam GI & Abdominal Exam: Normal Bowel Sounds, Soft, Unremarkable. absent: Distended , Firm, Tenderness - Extremities Exam Extremities exam: normal inspection - Neurological Exam Neurological exam: Alert, Oriented x3 - Skin Skin Exam: Dry, Intact, Normal Color, Warm Discharge Plan - Discharge Medications Prescriptions: Apixaban [Eliquis] 5 mg PO BID #30 tab Digoxin [Lanoxin] 0.25 mg PO 1400 #15 tab Metoprolol Tartrate [Lopressor] 50 mg PO BID #30 tab - Follow Up Plan Condition: FAIR Disposition: HOME/ ROUTINE Instructions: Heart Failure (DC), Atrial Flutter (DC), How to Stop Smoking (DC) Additional Instructions: Patient is stable for discharge home. Discharge instructions: - follow up with PMD in 3-5 days - follow up with Dr. Serrano on 08/14/16 New medications: metoprolol 50mg BID, stop metoprolol 25mg BID digoxin 0.25 daily eliquis 5mg BID continue taking lasix 40mg BID lisinopril 10 mg daily, liptor 10 mg daily aspirin 81mg daily atripla daily klor- con 10 meq daily Discharge diagnoses: CHF exacerbation a. flutter Referrals: Altagracia Brown MD [Primary Care Provider] - Stewart Serrano MD [Staff Provider] - <Linda Mustafa - Last Filed: 08/09/16 17:12> Provider - Provider Date of Admission: 08/07/16 11:56 Attending physician: Linda Mustafa MD Primary care physician: Altagracia Brown MD Hospital Course - Lab Results Lab Results: Most Recent Lab Values WBC 4.3 10^3/ul (4.5-11.0) L 08/08/16 06:00 RBC 4.35 10^6/uL (3.5-6.1) 08/08/16 06:00 Hgb 13.5 gm/dL (12.0-16.0) 08/08/16 06:00 Hct 40.7 % (36.0-48.0) 08/08/16 06:00 MCV 93.6 fL (80.0-105.0) 08/08/16 06:00 MCH 31.0 pg (25.0-35.0) 08/08/16 06:00 MCHC 33.2 g/dl (31.0-37.0) 08/08/16 06:00 RDW 17.3 % (11.5-14.5) H 08/08/16 06:00 Plt Count 249 10^3/uL (120.0-450.0) 08/08/16 06:00 MPV 9.1 fl (7.0-11.0) 08/08/16 06:00 Gran % 48.3 % (50.0-68.0) L 08/08/16 06:00 Lymph % (Auto) 38.1 % (22.0-35.0) H 08/08/16 06:00 [place] % (Auto) 9.6 % (1.0-6.0) H 08/08/16 06:00 Eos % (Auto) 2.4 % (1.5-5.0) 08/08/16 06:00 Baso % (Auto) 1.6 % (0.0-3.0) 08/08/16 06:00 Gran # 2.05 (1.4-6.5) 08/08/16 06:00 Lymph # 1.6 (1.2-3.4) 08/08/16 06:00 [place] # 0.4 (0.1-0.6) 08/08/16 06:00 Eos # 0.1 (0.0-0.7) 08/08/16 06:00 Baso # 0.07 K/mm3 (0.0-2.0) 08/08/16 06:00 PT 12.7 Seconds (9.9-11.8) H 08/06/16 12:00 INR 1.18 (0.93-1.08) H 08/06/16 12:00 APTT 27.7 Seconds (23.7-30.8) 08/06/16 12:00 Sodium 137 mmol/L (132-148) 08/08/16 06:00 Potassium 4.1 mmol/L (3.6-5.0) 08/08/16 06:00 Chloride 107 mmol/L (98-107) 08/08/16 06:00 Carbon Dioxide 21 mmol/L (21-33) 08/08/16 06:00 Anion Gap 13 (10-20) 08/08/16 06:00 BUN 40 mg/dL (7-21) H 08/08/16 06:00 Creatinine 1.3 mg/dL (0.5-1.4) 08/08/16 06:00 Est GFR ( Amer) 51 08/08/16 06:00 Est GFR (Non-Af Amer) 42 08/08/16 06:00 Random Glucose 112 mg/dL (70-110) H 08/08/16 06:00 Hemoglobin A1c 6.4 % (4.2-6.5) 08/08/16 06:00 Calcium 8.8 mg/dL (8.4-10.5) 08/08/16 06:00 Phosphorus 4.3 mg/dL (2.5-4.5) 08/08/16 06:00 Magnesium 1.9 mg/dL (1.7-2.2) 08/08/16 06:00 Total Bilirubin 1.0 mg/dL (0.2-1.3) 08/08/16 06:00 AST 46 U/L (15-39) H 08/08/16 06:00 ALT 50 U/L (7-56) 08/08/16 06:00 Alkaline Phosphatase 314 U/L (38-133) H 08/08/16 06:00 Lactate Dehydrogenase 573 U/L (333-699) 08/07/16 05:45 Total Creatine Kinase 73 U/L (35-230) 08/07/16 05:45 Troponin I 0.04 ng/mL D 08/07/16 05:45 NT-Pro-B Natriuret Pep 5560 pg/mL (0-450) H 08/06/16 12:00 Total Protein 7.5 g/dL (5.8-8.3) 08/08/16 06:00 Albumin 3.3 g/dL (3.0-4.8) 08/08/16 06:00 Globulin 4.2 gm/dL 08/08/16 06:00 Albumin/Globulin Ratio 0.8 (1.1-1.8) L 08/08/16 06:00 Triglycerides 80 mg/dL (35-160) 08/08/16 06:00 Cholesterol 168 mg/dL (130-200) 08/08/16 06:00 LDL Cholesterol Direct 112 mg/dL (0-129) 08/08/16 06:00 HDL Cholesterol 35 mg/dL (29-60) 08/08/16 06:00 Lipase 73 U/L (23-300) 08/06/16 12:00 TSH 3rd Generation 1.17 mIU/mL (0.46-4.68) 08/08/16 06:00 Hepatitis A IgM Ab Negative (NEGATIVE) 08/06/16 12:00 Hep Bs Antigen Negative (NEGATIVE) 08/06/16 12:00 Hep B Core IgM Ab Negative (NEGATIVE) 08/06/16 12:00 Hepatitis C Antibody Negative (NEGATIVE) 08/06/16 12:00 Attending/Attestation - Attestation I have personally seen and examined this patient.: Yes I have fully participated in the care of the patient.: Yes I have reviewed all pertinent clinical information, including history, physical exam and plan: Yes Notes (Text): I have seen and examined the patient at bedside. Agree with the note above with the following additions/ exceptions: This is 56 year old female with history of HIV, cardiomyopathy (EF~25%), HTN, typical atrial flutter, non compliance with medications who presented with dyspnea on exertion, orthopnea, leg swelling, palpitations and found to have CHF exacerbation. Patient reports that she is feeling better today. Her sob has resolved and leg edema has also improved. Continue eliquis, atripla, asa, lipitor, digoxin, metoprolol, lisinopril and lasix. . Patient will follow up with EP as an outpatient. She has elevated LFT's. She drinks alcohol on regular basis however denies going thru withdrawal. Hep panel negative. Liver ultrasound revealed fatty liver and trace ascites. Smoking and alcohol cessation counselling provided. Upon discharge patient will follow up with Dr Axel Luna, Dr Stewart Serrano and Dr Brown. Dr Linda Mustafa
== END 2016-08-09 13:21 | disposition home or self-care (01) | DRG 127 ==
LOC: ED 11:37 → ERH 13:24 → 2RSO 14:20 → OBSVTOIN 08-07 11:56
PROVIDERS: ADMIT Internal Medicine; ATTEND Hospitalist
DX: I11.0 Hypertensive heart disease with heart failure (principal); I50.23 Acute on chronic systolic (congestive) heart failure; I27.2 Other secondary pulmonary hypertension; I42.9 Cardiomyopathy, unspecified; I48.92 Unspecified atrial flutter; I08.3 Combined rheumatic disorders of mitral, aortic and tricuspid valves; F17.210 Nicotine dependence, cigarettes, uncomplicated; Z21 Asymptomatic human immunodeficiency virus [HIV] infection status; R79.89 Other specified abnormal findings of blood chemistry; I48.2 Chronic atrial fibrillation; K76.0 Fatty (change of) liver, not elsewhere classified; Z91.19 Patient's noncompliance with other medical treatment and regimen; Z91.14 Patient's other noncompliance with medication regimen; Z80.42 Family history of malignant neoplasm of prostate; Z80.0 Family history of malignant neoplasm of digestive organs

== ENCOUNTER 2017-09-03 11:28 | Day surgery (SDC) | payer MEDICAID ==
[2017-08-29 07:59] VITALS: BMI 29.2
[2017-09-03 11:53] LABS: BASO # 0.03 K/mm3 (0.0-2.0); BASO % 0.5 % (0.0-3.0); EOS # 0.2 (0.0-0.7); EOS % 3.1 % (1.5-5.0); GRAN # 2.71 (1.4-6.5); GRAN % 49.3 % (50.0-68.0); HEMOGLOBIN 14.8 g/dL (12.0-16.0); LYMPH # 2.1 (1.2-3.4); LYMPH % 37.5 % (22.0-35.0); MEAN CORPUSCULAR HEMOGLOBIN 32.5 pg (25.0-35.0); MEAN CORPUSCULAR HGB CONC 34.2 g/dl (31.0-37.0); MEAN PLATELET VOLUME 9.1 fl (7.0-11.0); MONO # 0.5 (0.1-0.6); MONO % 9.6 % (1.0-6.0); RBC 4.56 10^6/uL (3.5-6.1); WHITE BLOOD COUNT 5.5 10^3/ul (4.5-11.0)
[2017-09-03 12:03] LABS: BLOOD UREA NITROGEN 21 mg/dL (7-21); CALCIUM 9.3 mg/dL (8.4-10.5); GFR AFRICAN-AMERICAN > 60; GFR NON-AFRICAN AMERICAN 51
[2017-09-03 12:39] LABS: INR 1.02 (0.93-1.08); PARTIAL THROMBOPLASTIN TIME 32.3 Seconds (25.1-36.5); PROTHROMBIN TIME 11.7 SECONDS (9.4-12.5)
[2017-09-03] MEDS ORDERED: Lidocaine 2% Inj (20ml) ONE ×2 (13:04→15:38)
[2017-09-03] MEDS ORDERED: Iodixanol 320 MG/ML 200 ML BOTTLE IV ONE (13:05)
[2017-09-03] MEDS ORDERED: Nitroglycerin 50mg in D5W 50 MG/250 ML BOTTLE IV ONE (13:05)
[2017-09-03] MEDS ORDERED: Iodixanol 320 MG/ML 100 ML BOTTLE IV ONE ×2 (13:05→15:59)
[2017-09-03] MEDS ORDERED: Midazolam 2 MG/2 ML VIAL ONE ×2 (13:25→14:15)
[2017-09-03] MEDS ORDERED: Morphine 2 mg/ml ISec IVP PRN (17:31)
[2017-09-03] MEDS: Morphine 2 mg/2 mL syringe IVP PRN ×2 (18:02→23:32)
[2017-09-03] MEDS: Sodium Chloride 0.45% 1,000 ML IV SCH (18:03)
[2017-09-03 18:13] VITALS: TEMP 97.3
--- NOTE | 2017-09-03 18:15 | CP.PCM.CON ---
<Katya Maldonado - Last Filed: 09/03/17 20:34> History of Present Illness - History of Present Illness History of Present Illness: PGY-[address] Sosa ICU consult: post op Ms Khalif Santiago, 56 F with PMH of HIV, cardiomyopathy (Echo 2017 LVEF 25), systolic CHF, HTN, a. flutter, noncompliance was transferred from [facility]. She had short distant claudication after walking 1/2 block, then feel b/l leg pain L worsen than R. KARLEE (08/06) showed severely abnormal KARLEE at rest, R 0.36. L not obtainable. Bilateral aortoiliac disease. The PVR waveforms are severely diminished in nearly flat at all levels Today She got 3 bare-metal stents on R iliac artery with balloon angioplasty. Access are via (1) Right femeral artery, and (2) L axilla. She received Ancef 1g and lasix 40 IV mg at the end of the procedure. She had some blood loss from femoral access site ROS (+) back pain, chronic Denies DE JESUS, CP, SOB, N/V/D/C PMH: HIV, cardiomyopathy, CHF, HTN, a. flutter, noncompliance PSH: Cardiac catherterization with balloon angioplasty. No stent family hx: father prostate cancer, sister past from liver cancer social hx: smokes 5 cigarettes per day x 30 years. 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 Petty infectious disease: Dr. Axel Luna Card: Dr Carrion pharm: [facility] [phone] Past Patient History - Infectious Disease Hx of Infectious Diseases: None - Tetanus Immunizations Tetanus Immunization: Up to Date - Past Social History Smoking Status: Light Smoker < 10 Cigarettes Daily - CARDIAC Hx Pacemaker: No - PULMONARY Hx Respiratory Disorders: Yes Hx Pneumonia: Yes - NEUROLOGICAL Hx Paralysis: No - HEENT Hx HEENT Problems: No Hx Blind: No - RENAL Hx Chronic Kidney Disease: No - ENDOCRINE/METABOLIC Hx Endocrine Disorders: No - HEMATOLOGICAL/ONCOLOGICAL Hx Blood Transfusions: No - INTEGUMENTARY Hx Dermatological Problems: No - MUSCULOSKELETAL/RHEUMATOLOGICAL Hx Musculoskeletal Disorders: No - GASTROINTESTINAL Hx Gastrointestinal Disorders: No - GENITOURINARY/GYNECOLOGICAL Hx Genitourinary Disorders: No - PSYCHIATRIC Hx Emotional Abuse: No Hx Physical Abuse: No Hx Substance Use: No - SURGICAL HISTORY Hx Surgeries: Yes - ANESTHESIA Hx Anesthesia Reactions: No Hx Malignant Hyperthermia: No Meds Allergies/Adverse Reactions: Allergies Allergy/AdvReac Type Severity Reaction Status Date / Time No Known Allergies Allergy Verified 08/06/16 11:41 - Medications Medications: Current Medications Sodium Chloride (Sodium Chloride 0.45%) 1,000 mls @ 60 mls/hr IV .[id number] Last Admin: 09/03/17 18:03 Dose: 60 mls/hr Morphine Sulfate (Morphine) 2 mg IVP Q6 PRN PRN Reason: PAIN, SEVERE [8-10] Last Admin: 09/03/17 18:02 Dose: 2 mg Ondansetron HCl (Zofran Inj) 4 mg IVP ONCE PRN PRN Reason: Nausea/Vomiting Physical Exam - Constitutional Appears: No Acute Distress - Head Exam Head Exam: ATRAUMATIC, NORMAL INSPECTION, NORMOCEPHALIC - Eye Exam Eye Exam: EOMI, Normal appearance, PERRL. absent: Scleral icterus Pupil Exam: NORMAL ACCOMODATION - ENT Exam ENT Exam: Mucous Membranes Moist - Neck Exam Additional comments: supple. no jvd - Respiratory Exam Respiratory Exam: Clear to Auscultation Bilateral. absent: Rales, Rhonchi, Wheezes - Cardiovascular Exam Cardiovascular Exam: REGULAR RHYTHM, +S1, +S2. absent: Systolic Murmur - GI/Abdominal Exam GI & Abdominal Exam: Normal Bowel Sounds, Soft. absent: Distended, Firm, Guarding, Hernia - Extremities Exam Extremities exam: Positive for: pedal pulses present (faintly via doppler b/l). Negative for: pedal edema Additional comments: (+) decrease sensation b/l LE - Neurological Exam Neurological exam: Alert, Oriented x3 - Psychiatric Exam Psychiatric exam: Normal Affect, Normal Mood - Skin Skin Exam: Dry, Warm Results - Vital Signs Recent Vital Signs: Last Vital Signs Temp 97.3 F L 09/03/17 17:00 Pulse 63 09/03/17 18:06 Resp 16 09/03/17 18:06 BP 155/66 H 09/03/17 18:00 Pulse Ox 100 09/03/17 17:50 - Labs Result Diagrams: 09/03/17 18:36 09/03/17 18:36 Labs: Laboratory Results - last 24 hr 09/03/17 09/03/17 09/03/17 11:45 11:45 11:45 WBC 5.5 D RBC 4.56 Hgb 14.8 Hct 43.3 MCV 95.0 MCH 32.5 MCHC 34.2 RDW 14.0 Plt Count 252 MPV 9.1 Gran % 49.3 L Lymph % (Auto) 37.5 H [place] % (Auto) 9.6 H Eos % (Auto) 3.1 Baso % (Auto) 0.5 Gran # 2.71 Lymph # (Auto) 2.1 [place] # (Auto) 0.5 Eos # (Auto) 0.2 Baso # (Auto) 0.03 PT 11.7 INR 1.02 APTT 32.3 Sodium 143 Potassium 5.1 H Chloride 110 H Carbon Dioxide 24 Anion Gap 14 BUN 21 Creatinine 1.1 Est GFR ( Amer) > 60 Est GFR (Non-Af Amer) 51 Random Glucose 109 Calcium 9.3 Blood Type Antibody Screen Crossmatch BBK History Checked 09/03/17 16:30 WBC RBC Hgb Hct MCV MCH MCHC RDW Plt Count MPV Gran % Lymph % (Auto) [place] % (Auto) Eos % (Auto) Baso % (Auto) Gran # Lymph # (Auto) [place] # (Auto) Eos # (Auto) Baso # (Auto) PT INR APTT Sodium Potassium Chloride Carbon Dioxide Anion Gap BUN Creatinine Est GFR ( Amer) Est GFR (Non-Af Amer) Random Glucose Calcium Blood Type A POSITIVE Antibody Screen Negative Crossmatch See Detail BBK History Checked Patient has bt Assessment & Plan - Assessment and Plan (Free Text) Plan: Severe PAD s/p 3 bare metal stents at R iliac artery Bilateral aortoiliac disease. CKD got contrast today. watch contrast nephropathy Neuro - AAOx3 Pulm - Maintain SaO2 > 92% Card - Hydralyzine PRN if SBP > 170 - trend H/H q6 GI - monitor u/o - trend Creatinine Ext - continue pulse check per protocol - pending surgery for further vascular intervention s/r/celso Sosa <Oscar Sosa - Last Filed: 06/07/18 17:18> Results - Vital Signs Recent Vital Signs: Last Vital Signs Temp 97.3 F L 09/03/17 18:46 Pulse 69 09/04/17 11:27 Resp 18 09/03/17 23:09 BP 137/89 09/04/17 11:28 Pulse Ox 95 09/03/17 19:30 - Labs Result Diagrams: 09/04/17 06:00 09/04/17 06:00 Labs: Laboratory Results - last 24 hr 09/03/17 09/03/17 09/03/17 16:30 18:36 18:36 WBC 6.8 D RBC 4.47 Hgb 14.3 Hct 42.7 MCV 95.5 MCH 32.0 MCHC 33.5 RDW 14.0 Plt Count 233 MPV 9.3 Gran % 67.5 Lymph % (Auto) 22.1 [place] % (Auto) 8.7 H Eos % (Auto) 1.3 L Baso % (Auto) 0.4 Gran # 4.58 Lymph # (Auto) 1.5 [place] # (Auto) 0.6 Eos # (Auto) 0.1 Baso # (Auto) 0.03 PT INR APTT pO2 25 L VBG pH 7.24 L VBG pCO2 61.0 H VBG HCO3 26.1 VBG Total CO2 28.0 VBG O2 Sat (Calc) 47.6 VBG Base Excess -2.5 L VBG Potassium 4.5 Sodium 140.0 Chloride 107.0 Glucose 100 Lactate 2.0 FiO2 21.0 Potassium Carbon Dioxide Anion Gap BUN Creatinine Est GFR ( Amer) Est GFR (Non-Af Amer) Random Glucose Calcium Phosphorus Magnesium Total Bilirubin AST ALT Alkaline Phosphatase Lactate Dehydrogenase Total Creatine Kinase Troponin I NT-Pro-B Natriuret Pep Total Protein Albumin Globulin Albumin/Globulin Ratio Free T4 TSH 3rd Generation Venous Blood Potassium 4.5 Blood Type A POSITIVE Antibody Screen Negative Crossmatch See Detail BBK History Checked Patient has bt 09/03/17 09/03/17 09/03/17 18:36 18:36 18:36 WBC RBC Hgb Hct MCV MCH MCHC RDW Plt Count MPV Gran % Lymph % (Auto) [place] % (Auto) Eos % (Auto) Baso % (Auto) Gran # Lymph # (Auto) [place] # (Auto) Eos # (Auto) Baso # (Auto) PT 12.2 INR 1.07 APTT 77.2 H pO2 VBG pH VBG pCO2 VBG HCO3 VBG Total CO2 VBG O2 Sat (Calc) VBG Base Excess VBG Potassium Sodium 142 Chloride 107 Glucose Lactate FiO2 Potassium 4.4 Carbon Dioxide 21 Anion Gap 17 BUN 18 Creatinine 1.1 Est GFR ( Amer) > 60 Est GFR (Non-Af Amer) 51 Random Glucose 96 Calcium 8.8 Phosphorus 4.3 Magnesium 1.7 Total Bilirubin 0.6 AST 32 ALT 18 Alkaline Phosphatase 104 Lactate Dehydrogenase 426 Total Creatine Kinase 58 Troponin I 0.02 D NT-Pro-B Natriuret Pep 633 H Total Protein 7.6 Albumin 3.6 Globulin 3.9 Albumin/Globulin Ratio 0.9 L Free T4 1.25 TSH 3rd Generation 1.29 Venous Blood Potassium Blood Type Antibody Screen Crossmatch BBK History Checked 09/03/17 09/04/17 09/04/17 22:17 06:00 06:00 WBC 7.9 RBC 4.03 Hgb 12.7 Hct 38.6 MCV 95.8 MCH 31.5 MCHC 32.9 RDW 14.2 Plt Count 229 MPV 9.6 Gran % 65.0 Lymph % (Auto) 20.3 L [place] % (Auto) 13.6 H Eos % (Auto) 0.8 L Baso % (Auto) 0.3 Gran # 5.17 Lymph # (Auto) 1.6 [place] # (Auto) 1.1 H Eos # (Auto) 0.1 Baso # (Auto) 0.02 PT INR APTT pO2 40 VBG pH 7.30 L VBG pCO2 46.0 VBG HCO3 22.6 VBG Total CO2 24.0 VBG O2 Sat (Calc) 80.1 H VBG Base Excess -4.0 L VBG Potassium 4.1 Sodium 139.0 141 Chloride 108.0 H 108 H Glucose 109 H Lactate 1.7 FiO2 21.0 Potassium 4.4 Carbon Dioxide 24 Anion Gap 14 BUN 20 Creatinine 1.4 H Est GFR ( Amer) 47 Est GFR (Non-Af Amer) 39 Random Glucose 110 Calcium 8.3 L Phosphorus Magnesium 1.6 L Total Bilirubin 0.3 AST 28 ALT 22 Alkaline Phosphatase 84 Lactate Dehydrogenase Total Creatine Kinase Troponin I NT-Pro-B Natriuret Pep Total Protein 6.9 Albumin 3.4 Globulin 3.4 Albumin/Globulin Ratio 1.0 L Free T4 TSH 3rd Generation Venous Blood Potassium 4.1 Blood Type Antibody Screen Crossmatch BBK History Checked Attending/Attestation - Attestation I have personally seen and examined this patient.: Yes I have fully participated in the care of the patient.: Yes I have reviewed all pertinent clinical information: Yes Notes (Text): 09/04/17 17:16 57 yo female who presented to ICU after EVAR. serial vascular and neuro exam, IVF, serial cbc, OOB to chair, pulm toilet, IS, beonchodilators. DVT/GI prophylaxis ccm time 40 min
[2017-09-03 18:44] LABS: BASO # 0.03 K/mm3 (0.0-2.0); BASO % 0.4 % (0.0-3.0); EOS # 0.1 (0.0-0.7); EOS % 1.3 % (1.5-5.0); GRAN # 4.58 (1.4-6.5); GRAN % 67.5 % (50.0-68.0); HEMOGLOBIN 14.3 g/dL (12.0-16.0); LYMPH # 1.5 (1.2-3.4); LYMPH % 22.1 % (22.0-35.0); MEAN CELL VOLUME 95.5 fl (80.0-105.0); MEAN CORPUSCULAR HGB CONC 33.5 g/dl (31.0-37.0); MEAN PLATELET VOLUME 9.3 fl (7.0-11.0); MONO # 0.6 (0.1-0.6); MONO % 8.7 % (1.0-6.0); RBC 4.47 10^6/uL (3.5-6.1); WHITE BLOOD COUNT 6.8 10^3/ul (4.5-11.0)
[2017-09-03 18:50] LABS: VENOUS BLOOD GAS BASE EXCESS -2.5 mmol/L (0.0-2.0); VENOUS BLOOD GAS PO2 25 mm/Hg (30-55); VENOUS BLOOD PH 7.24 (7.32-7.43)
[2017-09-03] MEDS ORDERED: Pneumococcal 23-Valent Vaccine IM ONE (19:00)
[2017-09-03 19:01] LABS: ALB/GLOB RATIO 0.9 (1.1-1.8); ALBUMIN 3.6 g/dL (3.0-4.8); ALT/SGPT 18 U/L (7-56); AST/SGOT 32 U/L (14-36); BLOOD UREA NITROGEN 18 mg/dL (7-21); CALCIUM 8.8 mg/dL (8.4-10.5); GFR AFRICAN-AMERICAN > 60; GFR NON-AFRICAN AMERICAN 51
[2017-09-03 19:03] LABS: INR 1.07 (0.93-1.08); PARTIAL THROMBOPLASTIN TIME 77.2 Seconds (25.1-36.5); PROTHROMBIN TIME 12.2 SECONDS (9.4-12.5)
[2017-09-03 19:11] LABS: B-TYPE NATRIURETIC PEPTIDE 633 pg/mL (0-450); TROPONIN I 0.02 ng/mL
--- NOTE | 2017-09-03 19:14 | CP.PCM.HP ---
<Betty Brown - Last Filed: 09/04/17 00:07> History of Present Illness - History of Present Illness History of Present Illness: CC: need admission post angio and stenting Patient is a 56 y/o F with PMHx of HIV, cardiomyopathy (latest echo with LVEF 25 % in 2017), HTN, h/o a. flutter, PVD presenting post angioplasty. 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 The claudication was being medically managed, but for the past few months the pain has been getting wort, and not responding to conservative care. This AM patient came via a van for the angioplasty. Patient states she was other aquino her normal self this morning. Patient was evaluated in icu, post angio with 3 bare-metal stents on R iliac artery with balloon angioplasty via Right femoral artery and L axilla accesses. Complaining of chronic back pain, no cp, no sob, fever or chills. No cough, dysruea, abdominal pain. No fever or chills. PMD: Dr. Brown infectious disease: Dr. Axel Luna pharm: [facility] [phone] PMHx: HIV since 2008, cardiomyopathy, CHF, HTN, a. flutter, PVD PSH: Cardiac cath in 2012 with non obstructive disease. 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 Past Patient History - Infectious Disease Hx of Infectious Diseases: None - Tetanus Immunizations Tetanus Immunization: Up to Date - Past Social History Smoking Status: Light Smoker < 10 Cigarettes Daily Alcohol: Occasional Drugs: Denies Home Situation {Lives}: With Family - CARDIAC Hx Pacemaker: No - PULMONARY Hx Respiratory Disorders: Yes Hx Pneumonia: Yes - NEUROLOGICAL Hx Paralysis: No - HEENT Hx HEENT Problems: No Hx Blind: No - RENAL Hx Chronic Kidney Disease: No - ENDOCRINE/METABOLIC Hx Endocrine Disorders: No - HEMATOLOGICAL/ONCOLOGICAL Hx Blood Transfusions: No - INTEGUMENTARY Hx Dermatological Problems: No - MUSCULOSKELETAL/RHEUMATOLOGICAL Hx Musculoskeletal Disorders: No - GASTROINTESTINAL Hx Gastrointestinal Disorders: No - GENITOURINARY/GYNECOLOGICAL Hx Genitourinary Disorders: No - PSYCHIATRIC Hx Emotional Abuse: No Hx Physical Abuse: No Hx Substance Use: No - SURGICAL HISTORY Hx Surgeries: Yes - ANESTHESIA Hx Anesthesia Reactions: No Hx Malignant Hyperthermia: No Meds Allergies/Adverse Reactions: Allergies Allergy/AdvReac Type Severity Reaction Status Date / Time No Known Allergies Allergy Verified 08/06/16 11:41 Physical Exam - Constitutional Appears: No Acute Distress, Older Than Stated Age, Chronically Ill - Head Exam Head Exam: ATRAUMATIC, NORMAL INSPECTION, NORMOCEPHALIC - Eye Exam Eye Exam: Normal appearance - ENT Exam ENT Exam: Mucous Membranes Dry - Neck Exam Neck exam: Positive for: Normal Inspection - Respiratory Exam Respiratory Exam: Clear to Auscultation Bilateral, NORMAL BREATHING PATTERN. absent: Rales, Rhonchi, Wheezes, Respiratory Distress, Stridor - Cardiovascular Exam Cardiovascular Exam: REGULAR RHYTHM, RRR, +S1, +S2. absent: Bradycardia, Tachycardia, Gallop, JVD, Rubs, Systolic Murmur - GI/Abdominal Exam GI & Abdominal Exam: Normal Bowel Sounds, Soft. absent: Diminished Bowel Sounds , Distended, Firm, Guarding, Hypoactive Bowel Sounds, Rebound, Rigid, Tenderness - Extremities Exam Extremities exam: Positive for: normal inspection. Negative for: pedal edema, tenderness - Neurological Exam Neurological exam: Alert, Oriented x3 - Psychiatric Exam Psychiatric exam: Normal Affect, Normal Mood - Skin Skin Exam: Dry, Normal Color, Warm Additional comments: Right groin with clean dressing, no signs of hematoma, no signs of active bleeding. Results - Vital Signs Recent Vital Signs: Last Vital Signs Temp 97.3 F L 09/03/17 18:46 Pulse 59 L 09/03/17 19:00 Resp 13 09/03/17 19:00 BP 142/75 09/03/17 19:00 Pulse Ox 79 L 09/03/17 19:00 - Labs Result Diagrams: 09/03/17 18:36 09/03/17 18:36 Labs: Laboratory Results - last 24 hr 09/03/17 09/03/17 09/03/17 11:45 11:45 11:45 WBC 5.5 D RBC 4.56 Hgb 14.8 Hct 43.3 MCV 95.0 MCH 32.5 MCHC 34.2 RDW 14.0 Plt Count 252 MPV 9.1 Gran % 49.3 L Lymph % (Auto) 37.5 H Dillon % (Auto) 9.6 H Eos % (Auto) 3.1 Baso % (Auto) 0.5 Gran # 2.71 Lymph # (Auto) 2.1 Dillon # (Auto) 0.5 Eos # (Auto) 0.2 Baso # (Auto) 0.03 PT 11.7 INR 1.02 APTT 32.3 pO2 VBG pH VBG pCO2 VBG HCO3 VBG Total CO2 VBG O2 Sat (Calc) VBG Base Excess VBG Potassium Glucose Lactate FiO2 Sodium 143 Potassium 5.1 H Chloride 110 H Carbon Dioxide 24 Anion Gap 14 BUN 21 Creatinine 1.1 Est GFR ( Amer) > 60 Est GFR (Non-Af Amer) 51 Random Glucose 109 Calcium 9.3 Phosphorus Magnesium Total Bilirubin AST ALT Alkaline Phosphatase Lactate Dehydrogenase Total Creatine Kinase Total Protein Albumin Globulin Albumin/Globulin Ratio Venous Blood Potassium Blood Type Antibody Screen Crossmatch BBK History Checked 09/03/17 09/03/17 09/03/17 16:30 18:36 18:36 WBC 6.8 D RBC 4.47 Hgb 14.3 Hct 42.7 MCV 95.5 MCH 32.0 MCHC 33.5 RDW 14.0 Plt Count 233 MPV 9.3 Gran % 67.5 Lymph % (Auto) 22.1 Dillon % (Auto) 8.7 H Eos % (Auto) 1.3 L Baso % (Auto) 0.4 Gran # 4.58 Lymph # (Auto) 1.5 Dillon # (Auto) 0.6 Eos # (Auto) 0.1 Baso # (Auto) 0.03 PT INR APTT pO2 25 L VBG pH 7.24 L VBG pCO2 61.0 H VBG HCO3 26.1 VBG Total CO2 28.0 VBG O2 Sat (Calc) 47.6 VBG Base Excess -2.5 L VBG Potassium 4.5 Glucose 100 Lactate 2.0 FiO2 21.0 Sodium 140.0 Potassium Chloride 107.0 Carbon Dioxide Anion Gap BUN Creatinine Est GFR ( Amer) Est GFR (Non-Af Amer) Random Glucose Calcium Phosphorus Magnesium Total Bilirubin AST ALT Alkaline Phosphatase Lactate Dehydrogenase Total Creatine Kinase Total Protein Albumin Globulin Albumin/Globulin Ratio Venous Blood Potassium 4.5 Blood Type A POSITIVE Antibody Screen Negative Crossmatch See Detail BBK History Checked Patient has bt 09/03/17 09/03/17 18:36 18:36 WBC RBC Hgb Hct MCV MCH MCHC RDW Plt Count MPV Gran % Lymph % (Auto) Dillon % (Auto) Eos % (Auto) Baso % (Auto) Gran # Lymph # (Auto) Dillon # (Auto) Eos # (Auto) Baso # (Auto) PT 12.2 INR 1.07 APTT 77.2 H pO2 VBG pH VBG pCO2 VBG HCO3 VBG Total CO2 VBG O2 Sat (Calc) VBG Base Excess VBG Potassium Glucose Lactate FiO2 Sodium 142 Potassium 4.4 Chloride 107 Carbon Dioxide 21 Anion Gap 17 BUN 18 Creatinine 1.1 Est GFR ( Amer) > 60 Est GFR (Non-Af Amer) 51 Random Glucose 96 Calcium 8.8 Phosphorus 4.3 Magnesium 1.7 Total Bilirubin 0.6 AST 32 ALT 18 Alkaline Phosphatase 104 Lactate Dehydrogenase 426 Total Creatine Kinase 58 Total Protein 7.6 Albumin 3.6 Globulin 3.9 Albumin/Globulin Ratio 0.9 L Venous Blood Potassium Blood Type Antibody Screen Crossmatch BBK History Checked Assessment & Plan - Assessment and Plan (Free Text) Assessment: Patient is a 56 y/o F with PMHx of HIV, cardiomyopathy (latest echo with LVEF 25 % in 2017), HTN, h/o a. flutter, PVD presenting post angioplasty angio with 3 bare-metal stents on R iliac artery with balloon angioplasty. Patient is admitted to ICU post procedure pending vascular surgery evaluation for remaining ilic occlusive disease for possible bypass. Plan: 1) PVD s/p angio and stenting as mentioned above - vascular surgery consulted pending - aesthetics instructor consulted in case patient's going to OR - pre op work up ordered including echo, ekg and chest x-ray - Dr Markus Grider following - On morphine prn for pain - monitor h/h 2) h/o htn- will continue Norvasc, and lisinopril 3) h/o hld- will continue Lipitor 4) h/o HIV- will resume tenof Ala 5) h/o cardiomyopathy with poor LVEF - No active signs of fluid overload - will continue to monitor 6) DVT prophylaxis: consider Lovenox sc if no planned intervention. Pepcid for gi prophylaxis. Patient seen, examined and case discussed with Dr Chi. - Date & Time Date: 09/11/17 Time: 18:50 <Dave Chi - Last Filed: 09/05/17 17:25> Results - Vital Signs Recent Vital Signs: Last Vital Signs Temp 97.3 F L 09/03/17 18:46 Pulse 69 09/04/17 11:27 Resp 18 09/03/17 23:09 BP 137/89 09/04/17 11:28 Pulse Ox 95 09/03/17 19:30 - Labs Result Diagrams: 09/04/17 06:00 09/04/17 06:00 Labs: Laboratory Results - last 24 hr 09/03/17 16:30 Crossmatch See Detail Attending/Attestation - Attestation I have personally seen and examined this patient.: Yes I have fully participated in the care of the patient.: Yes I have reviewed all pertinent clinical information: Yes Notes (Text): 56 y/o F with PMHx of HIV, cardiomyopathy (latest echo with LVEF 25% in 2017), HTN, h/o a. flutter, PVD presenting post angioplasty angio with 3 bare-metal stents on R iliac artery with balloon angioplasty. Patient is admitted to ICU post procedure pending vascular surgery evaluation for remaining ilic occlusive disease for possible bypass.
[2017-09-03 19:34] LABS: FREE T4 1.25 ng/dL (0.78-2.19)
[2017-09-03 19:35] VITALS: O2SAT 95
--- NOTE | 2017-09-03 20:27 | CP.PCM.CON ---
History of Present Illness - History of Present Illness History of Present Illness: Vascular surgery consult note for Dr. Edilson Andrade, PGY-1 Pt S & E at bedside at 2009 57F w/PMH sig for HIV & severe PVD consulted s/p angioplasty w/balloon dilitation and stents to iliacs x 3 for aorto-iliac disease. Pt admits to pain at the right groin access site, radiates across to suprapubic & left lower quadrant, pain at the left axilla access site. Pain is severe, intermittent, worsens with palpation. Alleviated by morphine. Admits to sleepiness, thirst, back pain. Denies chest pain, SOB, dizziness, headache, vision changes, changes to bowel or bladder habits, other complaints. PMH: HIV, cardiomyopathy (EF 25%, 2017), HTN, PVD PSH: PCI w/balloon angiography All: NKDA SH: Admits to tobacco use- #5 daily x 30 yrs, admits to ETOH use - #2 shots weekly (Bacardi), denies illicit drug use FH: Non contributory PMD: [place] Review of Systems - Review of Systems All systems: reviewed and no additional remarkable complaints except - Constitutional Constitutional: absent: Chills, Fever, Headache - EENT Eyes: absent: Change in Vision Ears: absent: Dizziness Nose/Mouth/Throat: absent: Sore Throat - Cardiovascular Cardiovascular: absent: Chest Pain, Leg Edema - Respiratory Respiratory: absent: Cough - Gastrointestinal Gastrointestinal: Abdominal Pain (lower abdominal, over access site and radiates across to left lower quadrant). absent: Nausea, Vomiting - Musculoskeletal Musculoskeletal: Back Pain - Integumentary Integumentary: absent: Rash - Neurological Neurological: absent: Numbness, Tingling, Weakness Past Patient History - Infectious Disease Hx of Infectious Diseases: None - Tetanus Immunizations Tetanus Immunization: Up to Date - Past Social History Smoking Status: Light Smoker < 10 Cigarettes Daily - CARDIAC Hx Pacemaker: No - PULMONARY Hx Respiratory Disorders: Yes Hx Pneumonia: Yes - NEUROLOGICAL Hx Paralysis: No - HEENT Hx HEENT Problems: No Hx Blind: No - RENAL Hx Chronic Kidney Disease: No - ENDOCRINE/METABOLIC Hx Endocrine Disorders: No - HEMATOLOGICAL/ONCOLOGICAL Hx Blood Transfusions: No - INTEGUMENTARY Hx Dermatological Problems: No - MUSCULOSKELETAL/RHEUMATOLOGICAL Hx Musculoskeletal Disorders: No - GASTROINTESTINAL Hx Gastrointestinal Disorders: No - GENITOURINARY/GYNECOLOGICAL Hx Genitourinary Disorders: No - PSYCHIATRIC Hx Emotional Abuse: No Hx Physical Abuse: No Hx Substance Use: No - SURGICAL HISTORY Hx Surgeries: Yes - ANESTHESIA Hx Anesthesia Reactions: No Hx Malignant Hyperthermia: No Meds Allergies/Adverse Reactions: Allergies Allergy/AdvReac Type Severity Reaction Status Date / Time No Known Allergies Allergy Verified 08/06/16 11:41 - Medications Medications: Current Medications Sodium Chloride (Sodium Chloride 0.45%) 1,000 mls @ 60 mls/hr IV .[id number] Last Admin: 09/03/17 18:03 Dose: 60 mls/hr Morphine Sulfate (Morphine) 2 mg IVP Q6 PRN PRN Reason: PAIN, SEVERE [8-10] Last Admin: 09/03/17 18:02 Dose: 2 mg Ondansetron HCl (Zofran Inj) 4 mg IVP ONCE PRN PRN Reason: Nausea/Vomiting Physical Exam - Constitutional Appears: Non-toxic, No Acute Distress - Head Exam Head Exam: ATRAUMATIC, NORMAL INSPECTION, NORMOCEPHALIC - Eye Exam Eye Exam: EOMI, Normal appearance - ENT Exam ENT Exam: Mucous Membranes Moist, Normal Exam - Neck Exam Neck exam: Positive for: Full Rom, Normal Inspection - Respiratory Exam Respiratory Exam: NORMAL BREATHING PATTERN. absent: Clear to Auscultation Bilateral (coarse breath sounds), Rales, Rhonchi, Wheezes, Respiratory Distress - Cardiovascular Exam Cardiovascular Exam: REGULAR RHYTHM, +S1, +S2 - GI/Abdominal Exam GI & Abdominal Exam: Soft, Tenderness (over right groin access site and radiates to left lower quadrant/suprapubic area). absent: Distended, Firm, Hernia Additional comments: dressing over right groin access site-dry/intact, no palpable hematoma under dressing - Extremities Exam Extremities exam: Positive for: tenderness (left axilla with dressing in place- clean/dry/intact, tender under dressing, no palpable hematoma). Negative for: normal inspection (unable to palpate DP or PT, only able to appreciate DP via doppler, not PT bilaterally) - Neurological Exam Neurological exam: Alert, CN II-XII Intact, Oriented x3 - Psychiatric Exam Psychiatric exam: Normal Affect, Normal Mood - Skin Skin Exam: Dry, Intact, Normal Color, Warm Results - Vital Signs Recent Vital Signs: Last Vital Signs Temp 97.3 F L 06/06/18 18:46 Pulse 59 L 09/03/17 19:30 Resp 21 09/03/17 19:30 BP 142/75 09/03/17 19:00 Pulse Ox 95 09/03/17 19:30 - Labs Result Diagrams: 09/03/17 18:36 09/03/17 18:36 Labs: Laboratory Results - last 24 hr 09/03/17 09/03/17 09/03/17 11:45 11:45 11:45 WBC 5.5 D RBC 4.56 Hgb 14.8 Hct 43.3 MCV 95.0 MCH 32.5 MCHC 34.2 RDW 14.0 Plt Count 252 MPV 9.1 Gran % 49.3 L Lymph % (Auto) 37.5 H Black[place] % (Auto) 9.6 H Eos % (Auto) 3.1 Baso % (Auto) 0.5 Gran # 2.71 Lymph # (Auto) 2.1 [place] # (Auto) 0.5 Eos # (Auto) 0.2 Baso # (Auto) 0.03 PT 11.7 INR 1.02 APTT 32.3 pO2 VBG pH VBG pCO2 VBG HCO3 VBG Total CO2 VBG O2 Sat (Calc) VBG Base Excess VBG Potassium Glucose Lactate FiO2 Sodium 143 Potassium 5.1 H Chloride 110 H Carbon Dioxide 24 Anion Gap 14 BUN 21 Creatinine 1.1 Est GFR ( Amer) > 60 Est GFR (Non-Af Amer) 51 Random Glucose 109 Calcium 9.3 Phosphorus Magnesium Total Bilirubin AST ALT Alkaline Phosphatase Lactate Dehydrogenase Total Creatine Kinase Troponin I NT-Pro-B Natriuret Pep Total Protein Albumin Globulin Albumin/Globulin Ratio Free T4 TSH 3rd Generation Venous Blood Potassium Blood Type Antibody Screen Crossmatch BBK History Checked 09/03/17 09/03/17 09/03/17 16:30 18:36 18:36 WBC 6.8 D RBC 4.47 Hgb 14.3 Hct 42.7 MCV 95.5 MCH 32.0 MCHC 33.5 RDW 14.0 Plt Count 233 MPV 9.3 Gran % 67.5 Lymph % (Auto) 22.1 [place] % (Auto) 8.7 H Eos % (Auto) 1.3 L Baso % (Auto) 0.4 Gran # 4.58 Lymph # (Auto) 1.5 [place] # (Auto) 0.6 Eos # (Auto) 0.1 Baso # (Auto) 0.03 PT INR APTT pO2 25 L VBG pH 7.24 L VBG pCO2 61.0 H VBG HCO3 26.1 VBG Total CO2 28.0 VBG O2 Sat (Calc) 47.6 VBG Base Excess -2.5 L VBG Potassium 4.5 Glucose 100 Lactate 2.0 FiO2 21.0 Sodium 140.0 Potassium Chloride 107.0 Carbon Dioxide Anion Gap BUN Creatinine Est GFR ( Amer) Est GFR (Non-Af Amer) Random Glucose Calcium Phosphorus Magnesium Total Bilirubin AST ALT Alkaline Phosphatase Lactate Dehydrogenase Total Creatine Kinase Troponin I NT-Pro-B Natriuret Pep Total Protein Albumin Globulin Albumin/Globulin Ratio Free T4 TSH 3rd Generation Venous Blood Potassium 4.5 Blood Type A POSITIVE Antibody Screen Negative Crossmatch See Detail BBK History Checked Patient has bt 09/03/17 09/03/17 09/03/17 18:36 18:36 18:36 WBC RBC Hgb Hct MCV MCH MCHC RDW Plt Count MPV Gran % Lymph % (Auto) [place] % (Auto) Eos % (Auto) Baso % (Auto) Gran # Lymph # (Auto) [place] # (Auto) Eos # (Auto) Baso # (Auto) PT 12.2 INR 1.07 APTT 77.2 H pO2 VBG pH VBG pCO2 VBG HCO3 VBG Total CO2 VBG O2 Sat (Calc) VBG Base Excess VBG Potassium Glucose Lactate FiO2 Sodium 142 Potassium 4.4 Chloride 107 Carbon Dioxide 21 Anion Gap 17 BUN 18 Creatinine 1.1 Est GFR ( Amer) > 60 Est GFR (Non-Af Amer) 51 Random Glucose 96 Calcium 8.8 Phosphorus 4.3 Magnesium 1.7 Total Bilirubin 0.6 AST 32 ALT 18 Alkaline Phosphatase 104 Lactate Dehydrogenase 426 Total Creatine Kinase 58 Troponin I 0.02 D NT-Pro-B Natriuret Pep 633 H Total Protein 7.6 Albumin 3.6 Globulin 3.9 Albumin/Globulin Ratio 0.9 L Free T4 1.25 TSH 3rd Generation 1.29 Venous Blood Potassium Blood Type Antibody Screen Crossmatch BBK History Checked Assessment & Plan - Assessment and Plan (Free Text) Assessment: 57F PMH sig for HIV, severe PVD s/p angioplasty w/stents x 3 to iliacs, SFA occluded, consulted for severe iliac occlusive disease, admitted to ICU post angiography for monitoring Plan: Monitor H/H Monitor UOP Strict I/O's Further recs pending attending evaluation tomorrow DW attending Lupe, PGY-1 - Date & Time Date: 09/03/17 Time: 20:28
[2017-09-03 22:21] LABS: VENOUS BLOOD GAS PO2 40 mm/Hg (30-55)
[2017-09-04 03:34] VITALS: RESP 18
[2017-09-04 07:10] LABS: BASO # 0.02 K/mm3 (0.0-2.0); BASO % 0.3 % (0.0-3.0); EOS # 0.1 (0.0-0.7); EOS % 0.8 % (1.5-5.0); GRAN # 5.17 (1.4-6.5); HEMOGLOBIN 12.7 g/dL (12.0-16.0); LYMPH # 1.6 (1.2-3.4); LYMPH % 20.3 % (22.0-35.0); MEAN CELL VOLUME 95.8 fl (80.0-105.0); MEAN CORPUSCULAR HEMOGLOBIN 31.5 pg (25.0-35.0); MEAN CORPUSCULAR HGB CONC 32.9 g/dl (31.0-37.0); MEAN PLATELET VOLUME 9.6 fl (7.0-11.0); MONO # 1.1 (0.1-0.6); MONO % 13.6 % (1.0-6.0); RBC 4.03 10^6/uL (3.5-6.1); RED CELL DISTRIBUTION WIDTH 14.2 % (11.5-14.5); WHITE BLOOD COUNT 7.9 10^3/ul (4.5-11.0)
--- NOTE | 2017-09-04 07:34 | CP.PCM.PN ---
Subjective - Date & Time of Evaluation Date of Evaluation: 09/04/17 Time of Evaluation: 07:30 - Subjective Subjective: Vascular Surgery Note for Dr. Pena Patient seen and examined at bedside in ICU. No acute event overnight. Patient is s/p angiography with balloon angioplasty of Left iliac artery and R iliac artery stent. Patient has no complaints. SHe is tolerating diet. Objective - Vital Signs/Intake and Output Vital Signs (last 24 hours): Temp Pulse Resp BP Pulse Ox 97.3 F L 62 18 142/75 95 09/03/17 18:46 09/03/17 23:09 09/03/17 23:09 09/03/17 19:00 09/03/17 19:30 Intake and Output: 09/04/17 09/04/17 06:59 18:59 Intake Total 120 Output Total 200 Balance -80 - Medications Medications: Current Medications Amlodipine Besylate (Norvasc) 10 mg PO DAILY [facility] Atorvastatin Calcium (Lipitor) 80 mg PO DIN [facility] Last Admin: 09/03/17 21:32 Dose: 80 mg Famotidine (Pepcid) 40 mg PO HS [facility] Last Admin: 09/03/17 21:32 Dose: 40 mg Hydralazine HCl (Apresoline) 10 mg IVP Q6 PRN PRN Reason: Systolic Blood Pressure Sodium Chloride (Sodium Chloride 0.45%) 1,000 mls @ 60 mls/hr IV .[id number] [facility] Last Admin: 09/03/17 18:03 Dose: 60 mls/hr Lisinopril (Zestril) 5 mg PO DAILY [facility] Morphine Sulfate (Morphine) 2 mg IVP Q6 PRN PRN Reason: PAIN, SEVERE [8-10] Last Admin: 09/03/17 23:32 Dose: 2 mg Non-Formulary Medication (Emtricitab/Rilpiviri/Tenof Ala [Odefsey Tablet]) 1 tab PO DAILY [facility] Ondansetron HCl (Zofran Inj) 4 mg IVP ONCE PRN PRN Reason: Nausea/Vomiting - Labs Labs: 09/04/17 06:00 09/03/17 18:36 PT 12.2 SECONDS (9.4-12.5) 09/03/17 18:36 INR 1.07 (0.93-1.08) 09/03/17 18:36 APTT 77.2 Seconds (25.1-36.5) H 09/03/17 18:36 - Additional Findings Additional findings: - Constitutional Appears: Non-toxic, No Acute Distress - Head Exam Head Exam: ATRAUMATIC, NORMAL INSPECTION, NORMOCEPHALIC - Eye Exam Eye Exam: EOMI, Normal appearance - ENT Exam ENT Exam: Mucous Membranes Moist, Normal Exam - Neck Exam Neck exam: Positive for: Full Rom, Normal Inspection - Respiratory Exam Respiratory Exam: NORMAL BREATHING PATTERN. absent: Clear to Auscultation Bilateral (coarse breath sounds), Rales, Rhonchi, Wheezes, Respiratory Distress - Cardiovascular Exam Cardiovascular Exam: REGULAR RHYTHM, +S1, +S2 - GI/Abdominal Exam GI & Abdominal Exam: Soft, Tenderness (over right groin access site and radiates to left lower quadrant/suprapubic area). absent: Distended, Firm, Hernia Additional comments: dressing over right groin access site-dry/intact, no evidence of bleeding - Extremities Exam Extremities exam: Positive for: tenderness (left axilla with dressing in place- clean/dry/intact, tender under dressing, no palpable hematoma). Negative for: normal inspection (able to appreciate DP via doppler bilaterally) - Neurological Exam Neurological exam: Alert, CN II-XII Intact, Oriented x3 - Psychiatric Exam Psychiatric exam: Normal Affect, Normal Mood - Skin Skin Exam: Dry, Intact, Normal Color, Warm Assessment and Plan - Assessment and Plan (Free Text) Assessment: 57F PMH sig for HIV, severe PVD s/p angioplasty w/stents x 3 to iliacs, SFA occluded, consulted for severe iliac occlusive disease, admitted to ICU post angiography for monitoring Plan: No surigcal intervention needed at this time Patient is clear for discharge from surigical standpoint Discussed with Dr. Becky Henry PGY1
[2017-09-04 07:43] LABS: ALBUMIN 3.4 g/dL (3.0-4.8); CALCIUM 8.3 mg/dL (8.4-10.5)
--- NOTE | 2017-09-04 08:36 | CP.CCUPN ---
CCU Subjective - Physician Review Subjective (Free Text): 09/04/17 08:33 Pt is in extened recovery. Tolerating breakfast. Chronic back pain controlled by current pain regimen. (+) decrease sensation in LE, chronic. Brindas DE JESUS, CP, SOB, N/V/D/C. CCU Objective - Vital Signs / Intake & Output Intake and Output (Last 8hrs): Intake & Output 09/03/17 09/04/17 09/04/17 22:59 06:59 14:59 Intake Total 120 Output Total 200 Balance -80 Weight 160 lb Intake: IV 120 Right Antecubital 120 Output: Urine 200 Urethral (Oneil) 200 Other: Voiding Method Indwelling Catheter - Physical Exam Narrative Physical Exam (Free Text): NAD Head: Positive for: Atraumatic, Normocephalic Pupils: Positive for: PERRL Extroacular Muscles: Positive for: EOMI Conjunctiva: Positive for: Normal Mouth: Positive for: Moist Mucous Membranes Neck: Positive for: Normal Range of Motion Respiratory/Chest: Positive for: Clear to Auscultation, Good Air Exchange. Negative for: Respiratory Distress, Accessory Muscle Use Cardiovascular: Positive for: Regular Rate and Rhythm, Normal S1, S2 Abdomen: Positive for: Normal Bowel Sounds. Negative for: Tenderness, Distention, Peritoneal Signs Upper Extremity: Positive for: NORMAL PULSES, Other (No bleeding/hematoma from L axilla access) Lower Extremity: Positive for: Capillary Refill < 2 s, Other (R groin, no hematoma. Mild tenderness. Doppler pulses (faint) R DP and L DP. Non dopplerable PT b/l). Negative for: CALF TENDERNESS, Kenan's Sign Skin: Positive for: Warm, Dry Psychiatric: Positive for: Alert, Oriented x 3 - Medications Active Medications: Active Medications Generic Name Dose Route Start Last Admin Trade Name Freq PRN Reason Stop Dose Admin Amlodipine Besylate 10 mg 09/04/17 10:00 Norvasc PO DAILY BECK Atorvastatin Calcium 80 mg 09/03/17 20:45 09/03/17 21:32 Lipitor PO 80 mg DIN BECK Administration Famotidine 40 mg 09/03/17 22:00 09/03/17 21:32 Pepcid PO 40 mg HS BECK Administration Hydralazine HCl 10 mg 09/03/17 20:36 Apresoline IVP Q6 PRN Systolic Blood Pressure Sodium Chloride 1,000 mls @ 60 mls/hr 09/03/17 17:30 09/03/17 18:03 Sodium Chloride 0.45% IV 60 mls/hr .[id number] BECK Administration Lisinopril 5 mg 09/04/17 10:00 Zestril PO DAILY BECK Morphine Sulfate 2 mg 09/03/17 17:35 09/03/17 23:32 Morphine IVP 2 mg Q6 PRN Administration PAIN, SEVERE [8-10] Non-Formulary Medication 1 tab 09/04/17 10:00 Emtricitab/Rilpiviri/Tenof Ala [Odefsey Tablet] PO DAILY BECK Ondansetron HCl 4 mg 09/03/17 17:22 Zofran Inj IVP ONCE PRN Nausea/Vomiting - Patient Studies Lab Studies: Lab Studies 09/04/17 09/04/17 09/03/17 Range/Units 06:00 06:00 22:17 WBC 7.9 (4.5-11.0) 10^3/ul RBC 4.03 (3.5-6.1) 10^6/uL Hgb 12.7 (12.0-16.0) g/dL Hct 38.6 (36.0-48.0) % MCV 95.8 (80.0-105.0) fl MCH 31.5 (25.0-35.0) pg MCHC 32.9 (31.0-37.0) g/dl RDW 14.2 (11.5-14.5) % Plt Count 229 (120.0-450.0) 10^3/uL MPV 9.6 (7.0-11.0) fl Gran % 65.0 (50.0-68.0) % Lymph % (Auto) 20.3 L (22.0-35.0) % [place] % (Auto) 13.6 H (1.0-6.0) % Eos % (Auto) 0.8 L (1.5-5.0) % Baso % (Auto) 0.3 (0.0-3.0) % Gran # 5.17 (1.4-6.5) Lymph # (Auto) 1.6 (1.2-3.4) [place] # (Auto) 1.1 H (0.1-0.6) Eos # (Auto) 0.1 (0.0-0.7) Baso # (Auto) 0.02 (0.0-2.0) K/mm3 PT (9.4-12.5) SECONDS INR (0.93-1.08) APTT (25.1-36.5) Seconds pO2 40 (30-55) mm/Hg VBG pH 7.30 L (7.32-7.43) VBG pCO2 46.0 (40-60) VBG HCO3 22.6 (21-28) mmol/l VBG Total CO2 24.0 (22-28) mmol.L VBG O2 Sat (Calc) 80.1 H (40-65) % VBG Base Excess -4.0 L (0.0-2.0) mmol/L VBG Potassium 4.1 (3.6-5.2) mmol/L Glucose 109 H (65-105) mg/dl Lactate 1.7 (0.7-2.1) mmol/L FiO2 21.0 % Sodium 141 139.0 (132-148) mmol/L Potassium 4.4 (3.6-5.0) mmol/L Chloride 108 H 108.0 H (98-107) mmol/L Carbon Dioxide 24 (21-33) mmol/L Anion Gap 14 (10-20) BUN 20 (7-21) mg/dL Creatinine 1.4 H (0.7-1.2) mg/dl Est GFR ( Amer) 47 Est GFR (Non-Af Amer) 39 Random Glucose 110 (70-110) mg/dL Calcium 8.3 L (8.4-10.5) mg/dL Phosphorus (2.5-4.5) mg/dL Magnesium 1.6 L (1.7-2.2) mg/dL Total Bilirubin 0.3 (0.2-1.3) mg/dL AST 28 (14-36) U/L ALT 22 (7-56) U/L Alkaline Phosphatase 84 (38-126) U/L Lactate Dehydrogenase (333-699) U/L Total Creatine Kinase (35-230) U/L Troponin I ng/mL NT-Pro-B Natriuret Pep (0-450) pg/mL Total Protein 6.9 (5.8-8.3) g/dL Albumin 3.4 (3.0-4.8) g/dL Globulin 3.4 gm/dL Albumin/Globulin Ratio 1.0 L (1.1-1.8) Free T4 (0.78-2.19) ng/dL TSH 3rd Generation (0.46-4.68) mIU/mL Venous Blood Potassium 4.1 (3.6-5.2) mmol/L Blood Type Antibody Screen Crossmatch BBK History Checked 09/03/17 09/03/17 09/03/17 Range/Units 18:36 18:36 18:36 WBC (4.5-11.0) 10^3/ul RBC (3.5-6.1) 10^6/uL Hgb (12.0-16.0) g/dL Hct (36.0-48.0) % MCV (80.0-105.0) fl MCH (25.0-35.0) pg MCHC (31.0-37.0) g/dl RDW (11.5-14.5) % Plt Count (120.0-450.0) 10^3/uL MPV (7.0-11.0) fl Gran % (50.0-68.0) % Lymph % (Auto) (22.0-35.0) % [place] % (Auto) (1.0-6.0) % Eos % (Auto) (1.5-5.0) % Baso % (Auto) (0.0-3.0) % Gran # (1.4-6.5) Lymph # (Auto) (1.2-3.4) [place] # (Auto) (0.1-0.6) Eos # (Auto) (0.0-0.7) Baso # (Auto) (0.0-2.0) K/mm3 PT 12.2 (9.4-12.5) SECONDS INR 1.07 (0.93-1.08) APTT 77.2 H (25.1-36.5) Seconds pO2 (30-55) mm/Hg VBG pH (7.32-7.43) VBG pCO2 (40-60) VBG HCO3 (21-28) mmol/l VBG Total CO2 (22-28) mmol.L VBG O2 Sat (Calc) (40-65) % VBG Base Excess (0.0-2.0) mmol/L VBG Potassium (3.6-5.2) mmol/L Glucose (65-105) mg/dl Lactate (0.7-2.1) mmol/L FiO2 % Sodium 142 (132-148) mmol/L Potassium 4.4 (3.6-5.0) mmol/L Chloride 107 (98-107) mmol/L Carbon Dioxide 21 (21-33) mmol/L Anion Gap 17 (10-20) BUN 18 (7-21) mg/dL Creatinine 1.1 (0.7-1.2) mg/dl Est GFR ( Amer) > 60 Est GFR (Non-Af Amer) 51 Random Glucose 96 (70-110) mg/dL Calcium 8.8 (8.4-10.5) mg/dL Phosphorus 4.3 (2.5-4.5) mg/dL Magnesium 1.7 (1.7-2.2) mg/dL Total Bilirubin 0.6 (0.2-1.3) mg/dL AST 32 (14-36) U/L ALT 18 (7-56) U/L Alkaline Phosphatase 104 (38-126) U/L Lactate Dehydrogenase 426 (333-699) U/L Total Creatine Kinase 58 (35-230) U/L Troponin I 0.02 D ng/mL NT-Pro-B Natriuret Pep 633 H (0-450) pg/mL Total Protein 7.6 (5.8-8.3) g/dL Albumin 3.6 (3.0-4.8) g/dL Globulin 3.9 gm/dL Albumin/Globulin Ratio 0.9 L (1.1-1.8) Free T4 1.25 (0.78-2.19) ng/dL TSH 3rd Generation 1.29 (0.46-4.68) mIU/mL Venous Blood Potassium (3.6-5.2) mmol/L Blood Type Antibody Screen Crossmatch BBK History Checked 09/03/17 09/03/17 09/03/17 Range/Units 18:36 18:36 16:30 WBC 6.8 D (4.5-11.0) 10^3/ul RBC 4.47 (3.5-6.1) 10^6/uL Hgb 14.3 (12.0-16.0) g/dL Hct 42.7 (36.0-48.0) % MCV 95.5 (80.0-105.0) fl MCH 32.0 (25.0-35.0) pg MCHC 33.5 (31.0-37.0) g/dl RDW 14.0 (11.5-14.5) % Plt Count 233 (120.0-450.0) 10^3/uL MPV 9.3 (7.0-11.0) fl Gran % 67.5 (50.0-68.0) % Lymph % (Auto) 22.1 (22.0-35.0) % [place] % (Auto) 8.7 H (1.0-6.0) % Eos % (Auto) 1.3 L (1.5-5.0) % Baso % (Auto) 0.4 (0.0-3.0) % Gran # 4.58 (1.4-6.5) Lymph # (Auto) 1.5 (1.2-3.4) [place] # (Auto) 0.6 (0.1-0.6) Eos # (Auto) 0.1 (0.0-0.7) Baso # (Auto) 0.03 (0.0-2.0) K/mm3 PT (9.4-12.5) SECONDS INR (0.93-1.08) APTT (25.1-36.5) Seconds pO2 25 L (30-55) mm/Hg VBG pH 7.24 L (7.32-7.43) VBG pCO2 61.0 H (40-60) VBG HCO3 26.1 (21-28) mmol/l VBG Total CO2 28.0 (22-28) mmol.L VBG O2 Sat (Calc) 47.6 (40-65) % VBG Base Excess -2.5 L (0.0-2.0) mmol/L VBG Potassium 4.5 (3.6-5.2) mmol/L Glucose 100 (65-105) mg/dl Lactate 2.0 (0.7-2.1) mmol/L FiO2 21.0 % Sodium 140.0 (132-148) mmol/L Potassium (3.6-5.0) mmol/L Chloride 107.0 (98-107) mmol/L Carbon Dioxide (21-33) mmol/L Anion Gap (10-20) BUN (7-21) mg/dL Creatinine (0.7-1.2) mg/dl Est GFR ( Amer) Est GFR (Non-Af Amer) Random Glucose (70-110) mg/dL Calcium (8.4-10.5) mg/dL Phosphorus (2.5-4.5) mg/dL Magnesium (1.7-2.2) mg/dL Total Bilirubin (0.2-1.3) mg/dL AST (14-36) U/L ALT (7-56) U/L Alkaline Phosphatase (38-126) U/L Lactate Dehydrogenase (333-699) U/L Total Creatine Kinase (35-230) U/L Troponin I ng/mL NT-Pro-B Natriuret Pep (0-450) pg/mL Total Protein (5.8-8.3) g/dL Albumin (3.0-4.8) g/dL Globulin gm/dL Albumin/Globulin Ratio (1.1-1.8) Free T4 (0.78-2.19) ng/dL TSH 3rd Generation (0.46-4.68) mIU/mL Venous Blood Potassium 4.5 (3.6-5.2) mmol/L Blood Type A POSITIVE Antibody Screen Negative Crossmatch See Detail BBK History Checked Patient has bt 09/03/17 09/03/17 09/03/17 Range/Units 11:45 11:45 11:45 WBC 5.5 D (4.5-11.0) 10^3/ul RBC 4.56 (3.5-6.1) 10^6/uL Hgb 14.8 (12.0-16.0) g/dL Hct 43.3 (36.0-48.0) % MCV 95.0 (80.0-105.0) fl MCH 32.5 (25.0-35.0) pg MCHC 34.2 (31.0-37.0) g/dl RDW 14.0 (11.5-14.5) % Plt Count 252 (120.0-450.0) 10^3/uL MPV 9.1 (7.0-11.0) fl Gran % 49.3 L (50.0-68.0) % Lymph % (Auto) 37.5 H (22.0-35.0) % [place] % (Auto) 9.6 H (1.0-6.0) % Eos % (Auto) 3.1 (1.5-5.0) % Baso % (Auto) 0.5 (0.0-3.0) % Gran # 2.71 (1.4-6.5) Lymph # (Auto) 2.1 (1.2-3.4) [place] # (Auto) 0.5 (0.1-0.6) Eos # (Auto) 0.2 (0.0-0.7) Baso # (Auto) 0.03 (0.0-2.0) K/mm3 PT 11.7 (9.4-12.5) SECONDS INR 1.02 (0.93-1.08) APTT 32.3 (25.1-36.5) Seconds pO2 (30-55) mm/Hg VBG pH (7.32-7.43) VBG pCO2 (40-60) VBG HCO3 (21-28) mmol/l VBG Total CO2 (22-28) mmol.L VBG O2 Sat (Calc) (40-65) % VBG Base Excess (0.0-2.0) mmol/L VBG Potassium (3.6-5.2) mmol/L Glucose (65-105) mg/dl Lactate (0.7-2.1) mmol/L FiO2 % Sodium 143 (132-148) mmol/L Potassium 5.1 H (3.6-5.0) mmol/L Chloride 110 H (98-107) mmol/L Carbon Dioxide 24 (21-33) mmol/L Anion Gap 14 (10-20) BUN 21 (7-21) mg/dL Creatinine 1.1 (0.7-1.2) mg/dl Est GFR ( Amer) > 60 Est GFR (Non-Af Amer) 51 Random Glucose 109 (70-110) mg/dL Calcium 9.3 (8.4-10.5) mg/dL Phosphorus (2.5-4.5) mg/dL Magnesium (1.7-2.2) mg/dL Total Bilirubin (0.2-1.3) mg/dL AST (14-36) U/L ALT (7-56) U/L Alkaline Phosphatase (38-126) U/L Lactate Dehydrogenase (333-699) U/L Total Creatine Kinase (35-230) U/L Troponin I ng/mL NT-Pro-B Natriuret Pep (0-450) pg/mL Total Protein (5.8-8.3) g/dL Albumin (3.0-4.8) g/dL Globulin gm/dL Albumin/Globulin Ratio (1.1-1.8) Free T4 (0.78-2.19) ng/dL TSH 3rd Generation (0.46-4.68) mIU/mL Venous Blood Potassium (3.6-5.2) mmol/L Blood Type Antibody Screen Crossmatch BBK History Checked Laboratory Results - last 24 hr 09/03/17 09/03/17 09/03/17 11:45 11:45 11:45 WBC 5.5 D RBC 4.56 Hgb 14.8 Hct 43.3 MCV 95.0 MCH 32.5 MCHC 34.2 RDW 14.0 Plt Count 252 MPV 9.1 Gran % 49.3 L Lymph % (Auto) 37.5 H [place] % (Auto) 9.6 H Eos % (Auto) 3.1 Baso % (Auto) 0.5 Gran # 2.71 Lymph # (Auto) 2.1 [place] # (Auto) 0.5 Eos # (Auto) 0.2 Baso # (Auto) 0.03 PT 11.7 INR 1.02 APTT 32.3 pO2 VBG pH VBG pCO2 VBG HCO3 VBG Total CO2 VBG O2 Sat (Calc) VBG Base Excess VBG Potassium Glucose Lactate FiO2 Sodium 143 Potassium 5.1 H Chloride 110 H Carbon Dioxide 24 Anion Gap 14 BUN 21 Creatinine 1.1 Est GFR ( Amer) > 60 Est GFR (Non-Af Amer) 51 Random Glucose 109 Calcium 9.3 Phosphorus Magnesium Total Bilirubin AST ALT Alkaline Phosphatase Lactate Dehydrogenase Total Creatine Kinase Troponin I NT-Pro-B Natriuret Pep Total Protein Albumin Globulin Albumin/Globulin Ratio Free T4 TSH 3rd Generation Venous Blood Potassium Blood Type Antibody Screen Crossmatch BBK History Checked 09/03/17 09/03/17 09/03/17 16:30 18:36 18:36 WBC 6.8 D RBC 4.47 Hgb 14.3 Hct 42.7 MCV 95.5 MCH 32.0 MCHC 33.5 RDW 14.0 Plt Count 233 MPV 9.3 Gran % 67.5 Lymph % (Auto) 22.1 [place] % (Auto) 8.7 H Eos % (Auto) 1.3 L Baso % (Auto) 0.4 Gran # 4.58 Lymph # (Auto) 1.5 [place] # (Auto) 0.6 Eos # (Auto) 0.1 Baso # (Auto) 0.03 PT INR APTT pO2 25 L VBG pH 7.24 L VBG pCO2 61.0 H VBG HCO3 26.1 VBG Total CO2 28.0 VBG O2 Sat (Calc) 47.6 VBG Base Excess -2.5 L VBG Potassium 4.5 Glucose 100 Lactate 2.0 FiO2 21.0 Sodium 140.0 Potassium Chloride 107.0 Carbon Dioxide Anion Gap BUN Creatinine Est GFR ( Amer) Est GFR (Non-Af Amer) Random Glucose Calcium Phosphorus Magnesium Total Bilirubin AST ALT Alkaline Phosphatase Lactate Dehydrogenase Total Creatine Kinase Troponin I NT-Pro-B Natriuret Pep Total Protein Albumin Globulin Albumin/Globulin Ratio Free T4 TSH 3rd Generation Venous Blood Potassium 4.5 Blood Type A POSITIVE Antibody Screen Negative Crossmatch See Detail BBK History Checked Patient has bt 09/03/17 09/03/17 09/03/17 18:36 18:36 18:36 WBC RBC Hgb Hct MCV MCH MCHC RDW Plt Count MPV Gran % Lymph % (Auto) [place] % (Auto) Eos % (Auto) Baso % (Auto) Gran # Lymph # (Auto) [place] # (Auto) Eos # (Auto) Baso # (Auto) PT 12.2 INR 1.07 APTT 77.2 H pO2 VBG pH VBG pCO2 VBG HCO3 VBG Total CO2 VBG O2 Sat (Calc) VBG Base Excess VBG Potassium Glucose Lactate FiO2 Sodium 142 Potassium 4.4 Chloride 107 Carbon Dioxide 21 Anion Gap 17 BUN 18 Creatinine 1.1 Est GFR ( Amer) > 60 Est GFR (Non-Af Amer) 51 Random Glucose 96 Calcium 8.8 Phosphorus 4.3 Magnesium 1.7 Total Bilirubin 0.6 AST 32 ALT 18 Alkaline Phosphatase 104 Lactate Dehydrogenase 426 Total Creatine Kinase 58 Troponin I 0.02 D NT-Pro-B Natriuret Pep 633 H Total Protein 7.6 Albumin 3.6 Globulin 3.9 Albumin/Globulin Ratio 0.9 L Free T4 1.25 TSH 3rd Generation 1.29 Venous Blood Potassium Blood Type Antibody Screen Crossmatch BBK History Checked 09/03/17 09/04/17 09/04/17 22:17 06:00 06:00 WBC 7.9 RBC 4.03 Hgb 12.7 Hct 38.6 MCV 95.8 MCH 31.5 MCHC 32.9 RDW 14.2 Plt Count 229 MPV 9.6 Gran % 65.0 Lymph % (Auto) 20.3 L [place] % (Auto) 13.6 H Eos % (Auto) 0.8 L Baso % (Auto) 0.3 Gran # 5.17 Lymph # (Auto) 1.6 [place] # (Auto) 1.1 H Eos # (Auto) 0.1 Baso # (Auto) 0.02 PT INR APTT pO2 40 VBG pH 7.30 L VBG pCO2 46.0 VBG HCO3 22.6 VBG Total CO2 24.0 VBG O2 Sat (Calc) 80.1 H VBG Base Excess -4.0 L VBG Potassium 4.1 Glucose 109 H Lactate 1.7 FiO2 21.0 Sodium 139.0 141 Potassium 4.4 Chloride 108.0 H 108 H Carbon Dioxide 24 Anion Gap 14 BUN 20 Creatinine 1.4 H Est GFR ( Amer) 47 Est GFR (Non-Af Amer) 39 Random Glucose 110 Calcium 8.3 L Phosphorus Magnesium 1.6 L Total Bilirubin 0.3 AST 28 ALT 22 Alkaline Phosphatase 84 Lactate Dehydrogenase Total Creatine Kinase Troponin I NT-Pro-B Natriuret Pep Total Protein 6.9 Albumin 3.4 Globulin 3.4 Albumin/Globulin Ratio 1.0 L Free T4 TSH 3rd Generation Venous Blood Potassium 4.1 Blood Type Antibody Screen Crossmatch BBK History Checked Critical Care Progress Note - Nutrition Nutrition: Nutrition Category Date Time Status Heart Healthy Diet [DIET] Diets 09/03/17 Dinner Active Assessment/Plan - Assessment and Plan (Free Text) Plan: 129-1 Girmaey, 57 F, Hx HIV, cardiomyopathy (EF 25%, 2017), HTN, severe PVD, was admitted to ICU for bleeding at R femeral site post procedure pending vascular surgery evaluation for remaining ilic occlusive disease for possible bypass. A: Severe PAD s/p angioplasty w/balloon dilitation and bare metal stents to iliacs x 3 for aorto-iliac disease Bilateral aortoiliac disease. STEPHANIE with CKD baseline creatinin 1.1 to 1.3, STEPHANIE likely contrast nephropathy Neuro - AAOx3 - Morphone 2q6 for acute on chronic back pain Pulm - Maintain SaO2 > 92% - CXR for pre-op: pending official read, likely slight venous congestion Card - Cardiomyopathy of EF 25%; Pending echocardiogram - A-flutter on Eliquis 5 BID on Hold Pending surgery plan. Hep Gtt? - Hb 14.8 --> 14.3 --> 12.7 - lisinopril 5, norvasc 10, lipitor 80 - Hydralyzine PRN if SBP > 170 GI - HHD - Pepcid renal dose - 1/2 NS @ 60 - u/o 200 in past 12 hours, oliguric - Creatinine jumps from 1.1 to 1.4 - Mg 1.6 - Nephro consult? Endo - A1C 6.4 (08/08/16) pre-diabetic Heme - No transfusion ID - HIV on Odefsey Ext - continue pulse check per protocol - pending surgery for further vascular intervention, pre-op clearance per primary team - PT/OT Prophylaxis - pepsid 20 HS (renal dose)
--- NOTE | 2017-09-04 09:00 | RAD ---
HISTORY: pre-op clearance COMPARISON: 08/06/2016 FINDINGS: LUNGS: No active pulmonary disease. PLEURA: No significant pleural effusion identified, no pneumothorax apparent. CARDIOVASCULAR: Mild cardiomegaly OSSEOUS STRUCTURES: No significant abnormalities. VISUALIZED UPPER ABDOMEN: Normal. OTHER FINDINGS: None. IMPRESSION: No active disease.
[2017-09-04] MEDS ORDERED: [UNRECOGNIZED DRUG - OTHER] PO SCH (10:00)
--- NOTE | 2017-09-04 10:27 | VASCULAR ---
PROCEDURE: 1. Abdominal aortogram and bilateral lower extremity runoff with left axillary and right common femoral artery punctures. 2. Right common and external iliac artery angioplasty and stent placement. 3. Right common femoral and profunda femoral artery origin angioplasty HISTORY: Severe peripheral vascular disease. Severe lifestyle limiting short distance claudication. Possible early rest pain. Smoker. HIV positive. Cardiomyopathy. PHYSICIAN(S): Markus Grider M.D. TECHNIQUE: The relative risks and indications of the procedure were explained to the patient and consent obtained. The patient was hydrated prior to the procedure and the appropriate labs drawn. The patient was placed supine on the arteriogram table and the groins and the left axilla prepped and draped in usual sterile fashion. Conscious sedation monitoring were provided throughout the procedure by a nurse. The diagnostic arteriogram was performed from a left axillary approach. Under ultrasound guidance, the left axillary vein was punctured with a micropuncture set. A 5 Polish sheath was placed. Through the sheath number guidewire a 5 Polish flush catheter was placed the abdominal aorta at the level renal arteries and a PA DSA abdominal pelvic arteriogram performed. The catheter was advanced in the distal abdominal aorta and bilateral oblique pelvic arteriograms performed. Overlapping bilateral lower extremity DSA arteriograms were obtained from the inguinal ligaments to the mid calves. Exchange is made for a 7 Polish 70 cm sheath in the distal abdominal aorta. Multiple attempts at cannulating the chronically occluded right common iliac artery origin were unsuccessful from an antegrade approach. Subsequently the right common femoral artery was punctured inferiorly under ultrasound guidance with a micropuncture set. 5 Polish sheath was placed. A 5 Polish angled catheter and Glidewire were advanced in a retrograde fashion with a subintimal tract to the aortic bifurcation. Re-entry at the aortic bifurcation could not be obtained. Subsequently various guidewires and catheters were used from an antegrade and retrograde approach in order to gain access across the right iliac system. Eventually a guidewire from the left axillary approach was advanced into the right groin sheath. Exchange is made for a support wire from the right groin in the thoracic aorta. An 8 Polish 25 cm sheath was placed from the right groin. Occluded right iliac system was pre dilated with a 7 mm balloon. Next a 12 mm by 8 cm self expanding stent was placed in the distal abdominal aorta into the right common iliac system. In a coaxial fashion 8 mm x 120 mm Nitinol stent was placed in the right common and external iliac arteries to the inguinal ligament. The common iliac artery stent was dilated with a 9 mm balloon. The right external iliac artery stent was dilated with a 7 mm balloon. There is marked irregularity and narrowing of the right common femoral artery and origin of the right profunda femoral artery. This was treated from the left arm with a long balloon inflation with a 7 mm x 6 cm balloon. The right groin sheath was removed during the balloon inflation. The left axillae sheath was removed and a Mynx device deployed. The patient tolerated the procedure well. FINDINGS: The right renal artery is widely patent. There is a 80 percent stenosis of the proximal left renal artery. There is severe disease of the terminal abdominal aorta. The right common and external iliac arteries are chronically occluded. The left common iliac artery is severely diseased and occluded at its bifurcation. The left external iliac artery is occluded. The left common femoral artery is occluded. The right common femoral artery is reconstituted but diseased. Right lower extremity: The right common femoral artery is reconstituted but small and diseased. There is a large right profunda femoral artery that is bifid. The right SFA is occluded. There is reconstitution of the right popliteal artery at the adductor canal. The right popliteal artery is patent. The right trifurcation is opacified. The proximal right tibial vessels are patent. Left lower extremity: Left common femoral artery is occluded. There is reconstitution of a large proximal left profunda femoral artery. The left SFA is occluded. There is reconstitution of the left popliteal artery at the adductor canal. The left popliteal artery is continuous. There appears to be 2 vessel left tibial runoff. 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 2. Successful right common and external iliac artery recanalization with angioplasty and stent placement as described above. 3. Right common femoral artery and profunda femoral artery origin angioplasty 4. Bilateral SFA occlusive disease. 5. Left renal artery stenosis.
[2017-09-04] MEDS: Sodium Chloride 0.45% 1,000 ML IV SCH (11:28)
[2017-09-04 11:44] VITALS: BP 137/89; PULSE 69
--- NOTE | 2017-09-04 12:37 | CARD ---
APPROVED REPORT EKG Measurement Heart [id number] <Conclusion> Normal sinus rhythm LVH by voltage STTW changes A. Flutter no longer present c/w ECG 08/06/16
--- NOTE | 2017-09-04 15:00 | CP.PCM.DIS ---
<Richmond Nayak - Last Filed: 09/04/17 16:16> Provider - Provider Attending physician: Markus Grider MD Primary care physician: Oriana Brown Time Spent in preparation of Discharge (in minutes): 45 Hospital Course - Lab Results Lab Results: Most Recent Lab Values WBC 7.9 10^3/ul (4.5-11.0) 09/04/17 06:00 RBC 4.03 10^6/uL (3.5-6.1) 09/04/17 06:00 Hgb 12.7 g/dL (12.0-16.0) 09/04/17 06:00 Hct 38.6 % (36.0-48.0) 09/04/17 06:00 MCV 95.8 fl (80.0-105.0) 09/04/17 06:00 MCH 31.5 pg (25.0-35.0) 09/04/17 06:00 MCHC 32.9 g/dl (31.0-37.0) 09/04/17 06:00 RDW 14.2 % (11.5-14.5) 09/04/17 06:00 Plt Count 229 10^3/uL (120.0-450.0) 09/04/17 06:00 MPV 9.6 fl (7.0-11.0) 09/04/17 06:00 Gran % 65.0 % (50.0-68.0) 09/04/17 06:00 Lymph % (Auto) 20.3 % (22.0-35.0) L 09/04/17 06:00 [place] % (Auto) 13.6 % (1.0-6.0) H 09/04/17 06:00 Eos % (Auto) 0.8 % (1.5-5.0) L 09/04/17 06:00 Baso % (Auto) 0.3 % (0.0-3.0) 09/04/17 06:00 Gran # 5.17 (1.4-6.5) 09/04/17 06:00 Lymph # (Auto) 1.6 (1.2-3.4) 09/04/17 06:00 [place] # (Auto) 1.1 (0.1-0.6) H 09/04/17 06:00 Eos # (Auto) 0.1 (0.0-0.7) 09/04/17 06:00 Baso # (Auto) 0.02 K/mm3 (0.0-2.0) 09/04/17 06:00 PT 12.2 SECONDS (9.4-12.5) 09/03/17 18:36 INR 1.07 (0.93-1.08) 09/03/17 18:36 APTT 77.2 Seconds (25.1-36.5) H 09/03/17 18:36 pO2 40 mm/Hg (30-55) 09/03/17 22:17 VBG pH 7.30 (7.32-7.43) L 09/03/17 22:17 VBG pCO2 46.0 (40-60) 09/03/17 22:17 VBG HCO3 22.6 mmol/l (21-28) 09/03/17 22:17 VBG Total CO2 24.0 mmol.L (22-28) 09/03/17 22:17 VBG O2 Sat (Calc) 80.1 % (40-65) H 09/03/17 22:17 VBG Base Excess -4.0 mmol/L (0.0-2.0) L 09/03/17 22:17 VBG Potassium 4.1 mmol/L (3.6-5.2) 09/03/17 22:17 Sodium 139.0 mmol/L (132-148) 09/03/17 22:17 Chloride 108.0 mmol/L (98-107) H 09/03/17 22:17 Glucose 109 mg/dl (65-105) H 09/03/17 22:17 Lactate 1.7 mmol/L (0.7-2.1) 09/03/17 22:17 FiO2 21.0 % 09/03/17 22:17 Sodium 141 mmol/L (132-148) 09/04/17 06:00 Potassium 4.4 mmol/L (3.6-5.0) 09/04/17 06:00 Chloride 108 mmol/L (98-107) H 09/04/17 06:00 Carbon Dioxide 24 mmol/L (21-33) 09/04/17 06:00 Anion Gap 14 (10-20) 09/04/17 06:00 BUN 20 mg/dL (7-21) 09/04/17 06:00 Creatinine 1.4 mg/dl (0.7-1.2) H 09/04/17 06:00 Est GFR ( Amer) 47 09/04/17 06:00 Est GFR (Non-Af Amer) 39 09/04/17 06:00 Random Glucose 110 mg/dL (70-110) 09/04/17 06:00 Calcium 8.3 mg/dL (8.4-10.5) L 09/04/17 06:00 Phosphorus 4.3 mg/dL (2.5-4.5) 09/03/17 18:36 Magnesium 1.6 mg/dL (1.7-2.2) L 09/04/17 06:00 Total Bilirubin 0.3 mg/dL (0.2-1.3) 09/04/17 06:00 AST 28 U/L (14-36) 09/04/17 06:00 ALT 22 U/L (7-56) 09/04/17 06:00 Alkaline Phosphatase 84 U/L (38-126) 09/04/17 06:00 Lactate Dehydrogenase 426 U/L (333-699) 09/03/17 18:36 Total Creatine Kinase 58 U/L (35-230) 09/03/17 18:36 Troponin I 0.02 ng/mL D 09/03/17 18:36 NT-Pro-B Natriuret Pep 633 pg/mL (0-450) H 09/03/17 18:36 Total Protein 6.9 g/dL (5.8-8.3) 09/04/17 06:00 Albumin 3.4 g/dL (3.0-4.8) 09/04/17 06:00 Globulin 3.4 gm/dL 09/04/17 06:00 Albumin/Globulin Ratio 1.0 (1.1-1.8) L 09/04/17 06:00 Free T4 1.25 ng/dL (0.78-2.19) 09/03/17 18:36 TSH 3rd Generation 1.29 mIU/mL (0.46-4.68) 09/03/17 18:36 Venous Blood Potassium 4.1 mmol/L (3.6-5.2) 09/03/17 22:17 Blood Type A POSITIVE 09/03/17 16:30 Antibody Screen Negative 09/03/17 16:30 Crossmatch See Detail 09/03/17 16:30 BBK History Checked Patient has bt 09/03/17 16:30 - Hospital Course Hospital Course: Patient is a 56 y/o F with PMHx of HIV, cardiomyopathy (latest echo with LVEF 25 % in 2017), HTN, h/o a. flutter, PVD presenting post angioplasty. Patient states she has PVD for 4 years now, the problem was discovered when she when to see a speaking unit assembler in the past. The claudication was being medically managed, but for the past few months the pain has been getting wort, and not responding to conservative care. This AM patient came via a van for the angioplasty. Patient states she was other aquino her normal self this morning. Patient was evaluated in icu, post angio with 3 bare-metal stents on R iliac artery with balloon angioplasty via Right femoral artery and L axilla accesses. Complaining of chronic back pain, no cp, no sob, fever or chills. No cough, dysruea, abdominal pain. No fever or chills. PMD: Dr. Brown infectious disease: Dr. Axel Luna pharm: [facility] [phone] PMHx: HIV since 2008, cardiomyopathy, CHF, HTN, a. flutter, PVD PSH: Cardiac cath in 2012 with non obstructive disease. 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 The patient was admitted to the ICU post procedure pending vascular surgery evaluation for remaining iliac occlusive disease for possible bypass. The patient was seen and examined this morning and stable. Shortly after the patient became upset and wanted to be discharged. After telling the patient that her creatinine was elevated upon today's examination and was informed the consequences of leaving before being further worked up. Patient was seen by surgery while admitted. She understood the risk for this including the risk of infection at the incision site of her angioplasty and left AMA. Imagin. EKG: Normal sinus rhythm. LVH by voltage. STTW CHANGES. 2. Chest xray: no active disease. Discharge Exam - Head Exam Head Exam: ATRAUMATIC, NORMAL INSPECTION, NORMOCEPHALIC - Eye Exam Eye Exam: EOMI, Normal appearance, PERRL Pupil Exam: NORMAL ACCOMODATION - Respiratory Exam Respiratory Exam: Clear to PA & Lateral, NORMAL BREATHING PATTERN, UNREMARKABLE - Cardiovascular Exam Cardiovascular Exam: REGULAR RHYTHM, +S1, +S2 - GI/Abdominal Exam GI & Abdominal Exam: Normal Bowel Sounds, Unremarkable - Neurological Exam Neurological exam: Alert, CN II-XII Intact, Oriented x3 - Psychiatric Exam Psychiatric exam: Normal Affect, Normal Mood - Skin Skin Exam: Dry, Intact Discharge Plan - Follow Up Plan Condition: GOOD Disposition: AGAINST MEDICAL ADVICE Referrals: Oriana Brown MD [Primary Care Provider] - <Pickard,Conner - Last Filed: 09/04/17 16:43> Provider - Provider Attending physician: Markus Grider MD [facility] Course - Lab Results Lab Results: Most Recent Lab Values WBC 7.9 10^3/ul (4.5-11.0) 09/04/17 06:00 RBC 4.03 10^6/uL (3.5-6.1) 09/04/17 06:00 Hgb 12.7 g/dL (12.0-16.0) 09/04/17 06:00 Hct 38.6 % (36.0-48.0) 09/04/17 06:00 MCV 95.8 fl (80.0-105.0) 09/04/17 06:00 MCH 31.5 pg (25.0-35.0) 09/04/17 06:00 MCHC 32.9 g/dl (31.0-37.0) 09/04/17 06:00 RDW 14.2 % (11.5-14.5) 09/04/17 06:00 Plt Count 229 10^3/uL (120.0-450.0) 09/04/17 06:00 MPV 9.6 fl (7.0-11.0) 09/04/17 06:00 Gran % 65.0 % (50.0-68.0) 09/04/17 06:00 Lymph % (Auto) 20.3 % (22.0-35.0) L 09/04/17 06:00 [place] % (Auto) 13.6 % (1.0-6.0) H 09/04/17 06:00 Eos % (Auto) 0.8 % (1.5-5.0) L 09/04/17 06:00 Baso % (Auto) 0.3 % (0.0-3.0) 09/04/17 06:00 Gran # 5.17 (1.4-6.5) 09/04/17 06:00 Lymph # (Auto) 1.6 (1.2-3.4) 09/04/17 06:00 [place] # (Auto) 1.1 (0.1-0.6) H 09/04/17 06:00 Eos # (Auto) 0.1 (0.0-0.7) 09/04/17 06:00 Baso # (Auto) 0.02 K/mm3 (0.0-2.0) 09/04/17 06:00 PT 12.2 SECONDS (9.4-12.5) 09/03/17 18:36 INR 1.07 (0.93-1.08) 09/03/17 18:36 APTT 77.2 Seconds (25.1-36.5) H 09/03/17 18:36 pO2 40 mm/Hg (30-55) 09/03/17 22:17 VBG pH 7.30 (7.32-7.43) L 09/03/17 22:17 VBG pCO2 46.0 (40-60) 09/03/17 22:17 VBG HCO3 22.6 mmol/l (21-28) 09/03/17 22:17 VBG Total CO2 24.0 mmol.L (22-28) 09/03/17 22:17 VBG O2 Sat (Calc) 80.1 % (40-65) H 09/03/17 22:17 VBG Base Excess -4.0 mmol/L (0.0-2.0) L 09/03/17 22:17 VBG Potassium 4.1 mmol/L (3.6-5.2) 09/03/17 22:17 Sodium 139.0 mmol/L (132-148) 09/03/17 22:17 Chloride 108.0 mmol/L (98-107) H 09/03/17 22:17 Glucose 109 mg/dl (65-105) H 09/03/17 22:17 Lactate 1.7 mmol/L (0.7-2.1) 09/03/17 22:17 FiO2 21.0 % 09/03/17 22:17 Sodium 141 mmol/L (132-148) 09/04/17 06:00 Potassium 4.4 mmol/L (3.6-5.0) 09/04/17 06:00 Chloride 108 mmol/L (98-107) H 09/04/17 06:00 Carbon Dioxide 24 mmol/L (21-33) 09/04/17 06:00 Anion Gap 14 (10-20) 09/04/17 06:00 BUN 20 mg/dL (7-21) 09/04/17 06:00 Creatinine 1.4 mg/dl (0.7-1.2) H 09/04/17 06:00 Est GFR ( Amer) 47 09/04/17 06:00 Est GFR (Non-Af Amer) 39 09/04/17 06:00 Random Glucose 110 mg/dL (70-110) 09/04/17 06:00 Calcium 8.3 mg/dL (8.4-10.5) L 09/04/17 06:00 Phosphorus 4.3 mg/dL (2.5-4.5) 09/03/17 18:36 Magnesium 1.6 mg/dL (1.7-2.2) L 09/04/17 06:00 Total Bilirubin 0.3 mg/dL (0.2-1.3) 09/04/17 06:00 AST 28 U/L (14-36) 09/04/17 06:00 ALT 22 U/L (7-56) 09/04/17 06:00 Alkaline Phosphatase 84 U/L (38-126) 09/04/17 06:00 Lactate Dehydrogenase 426 U/L (333-699) 09/03/17 18:36 Total Creatine Kinase 58 U/L (35-230) 09/03/17 18:36 Troponin I 0.02 ng/mL D 09/03/17 18:36 NT-Pro-B Natriuret Pep 633 pg/mL (0-450) H 09/03/17 18:36 Total Protein 6.9 g/dL (5.8-8.3) 09/04/17 06:00 Albumin 3.4 g/dL (3.0-4.8) 09/04/17 06:00 Globulin 3.4 gm/dL 09/04/17 06:00 Albumin/Globulin Ratio 1.0 (1.1-1.8) L 09/04/17 06:00 Free T4 1.25 ng/dL (0.78-2.19) 09/03/17 18:36 TSH 3rd Generation 1.29 mIU/mL (0.46-4.68) 09/03/17 18:36 Venous Blood Potassium 4.1 mmol/L (3.6-5.2) 09/03/17 22:17 Blood Type A POSITIVE 09/03/17 16:30 Antibody Screen Negative 09/03/17 16:30 Crossmatch See Detail 09/03/17 16:30 BBK History Checked Patient has bt 09/03/17 16:30 Attending/Attestation - Attestation I have personally seen and examined this patient.: Yes I have fully participated in the care of the patient.: Yes I have reviewed all pertinent clinical information, including history, physical exam and plan: Yes Notes (Text): Patient seen and examined with the residents. Agree with above Symptoms of pain improved. Decided to sign out AMA
--- NOTE | 2017-09-04 22:45 | CON ---
DATE: 09/04/2017 REASON FOR CONSULTATION: Left leg claudication. HISTORY OF PRESENT ILLNESS: The patient is a 57-year-old woman who presented with bilateral calf claudication after half a block. The angiogram performed yesterday showed a right iliac occlusion at the aortic bifurcation and reconstitution of the right profundus femoral artery. The right superficial femoral artery was occluded on the left side and a short segment of iliac artery which was occluded and reconstitution of the left profundus femoral artery. Dr. Markus Grider performed angioplasty and stenting of her right iliac and external iliac artery, the reconstitution of the right profundus femoral artery and she had a femoral pulse. He was unable to open up the left side. I was consulted for possible femoral-femoral bypass. PAST MEDICAL HISTORY: Significant for HIV positive and a cardiomyopathy with a low ejection fraction in the 30s. SOCIAL HISTORY: Was significant for chronic alcoholism. She consumes approximately a quarter of vodka a day and she is still an active smoker. REVIEW OF SYSTEMS: The rest of the review of systems other than stated in the social history and the past medical history was unremarkable. PHYSICAL EXAMINATION: GENERAL: Physical exam shows an obese black female, in no distress. HEENT: Negative. CARDIAC: Showed regular rhythm. No murmur. ABDOMEN: Obese. There is no palpable mass. EXTREMITIES: Examination of the lower extremity showed no tissue loss. There is palpable right femoral pulse and no palpable distal pulse. The angiogram was reviewed with Dr. Grider. The left iliac was cut off at the aorta. There is rare collateral in the pelvis and there is reconstitution of the left profundus femoral artery and the right profundus femoral artery distal to the stent, the profundus has diffuse stenosis. IMPRESSION: The patient's symptoms are only claudication due to her cardiac condition. Surgical reconstruction of her left side will involve cross-clamping the aorta. We elected to treat her medically. She was instructed to stop smoking, taper her alcohol consumption and start a working regimen. She should be followed in 2 months for possible improvement of the symptoms. Hayde Snider MD
--- NOTE | 2017-09-05 10:23 | CARD ---
APPROVED REPORT EXAM: Two-dimensional and M-mode echocardiogram with Doppler and color Doppler. Other Information Quality : GoodRhythm : INDICATION Congestive Heart Failure 2D DIMENSIONS Left Atrium (2D)5.0 (1.6-4.0cm)IVSd1.3 (0.7-1.1cm) LVDd5.0 (3.9-5.9cm)PWd1.3 (0.7-1.1cm) LVDs3.7 (2.5-4.0cm)FS (%) 26.0 % LVEF (%)51.0 (>50%) M-Mode DIMENSIONS Aortic Root2.40 (2.2-3.7cm)Aortic Cusp Exc.1.30 (1.5-2.0cm) Aortic Valve AoV Peak Zxfemqhx610.0cm/Tommy Peak GR.12mmHg Mitral Valve MV E Ayyexwud343.0cm/sMV A Aumoxsmn122.0cm/sMV [id number] E/A ratio1.2MVA (PHT)1.46cm2 TDI E/Lateral E'0.0E/Medial E'0.0 Tricuspid Valve TR Peak Yuqrcqxo444ml/sRAP [id number] Peak Gr.41mmHg [id number] LEFT VENTRICLE The left ventricle is normal size. There is mild concentric left ventricular hypertrophy. The left ventricular function is normal. The left ventricular ejection fraction is within the normal range. There is normal LV segmental wall motion. RIGHT VENTRICLE The right ventricle is normal size. ATRIA The left atrium is moderately dilated. The right atrium is mildly dilated. The interatrial septum is intact with no evidence for an atrial septal defect. AORTIC VALVE The aortic valve is moderately to severely calcified. MITRAL VALVE The mitral valve is moderately thickened with limited opening c/w rheumatic mitral stenosis, mild. Mitral regurgitation is severe. TRICUSPID VALVE The tricuspid valve is normal in structure. There is mild tricuspid regurgitation. There is moderate pulmonary hypertension. PULMONIC VALVE The pulmonic valve is not well visualized. GREAT VESSELS The aortic root is normal in size. PERICARDIAL EFFUSION There is no pericardial effusion. <Conclusion> The left ventricle is normal size. There is mild concentric left ventricular hypertrophy. The left ventricular function is normal. The aortic valve is moderately to severely calcified. Aortic sclerosis vs. mild . The mitral valve is moderately thickened with limited opening c/w rheumatic mitral stenosis, mild. Mitral regurgitation is severe. There is mild tricuspid regurgitation. There is moderate pulmonary hypertension.
== END 2017-09-04 12:30 | disposition left against medical advice (07) ==
LOC: SDSVAS 11:28 → CCU 17:30 → SDSVAS 09-04 12:30
PROVIDERS: ATTEND Radiology Vascular & Interventional Radiology
DX: I73.9 Peripheral vascular disease, unspecified (principal); I13.0 Hypertensive heart and chronic kidney disease with heart failure and stage 1 through stage 4 chronic kidney disease, or unspecified chronic kidney disease; I50.22 Chronic systolic (congestive) heart failure; N18.9 Chronic kidney disease, unspecified; Z21 Asymptomatic human immunodeficiency virus [HIV] infection status; N17.8 Other acute kidney failure; N14.1 Nephropathy induced by other drugs, medicaments and biological substances; T50.8X5A Adverse effect of diagnostic agents, initial encounter; I42.9 Cardiomyopathy, unspecified; F17.210 Nicotine dependence, cigarettes, uncomplicated; I48.92 Unspecified atrial flutter; M54.9 Dorsalgia, unspecified; G89.29 Other chronic pain; E78.5 Hyperlipidemia, unspecified; R73.03 Prediabetes; Z91.14 Patient's other noncompliance with medication regimen; Z79.82 Long term (current) use of aspirin
CPT/HCPCS: 36415; 71045; 80053 ×2; 82550; 82803; 83615; 83735 ×2; 83880; 84100; 84439; 84443; 84484; 85025 ×2; 85610; 85730; 86850; 86900; 86920; 87081; 93005; 93306; 99152; 99153; C1725 ×5; C1760 ×2; C1769 ×4; C1876 ×2; C1887 ×2; C1892; C1894 ×2; C2617; J0690; J1644 ×2; J1940; J2250; J2270; J2405; J3010; J7030 ×2; Q9966; Q9967

== ENCOUNTER 2018-04-21 13:39 | Emergency (ER) | payer MEDICAID ==
[2018-04-21 13:43] VITALS: PULSE 119; BMI 29.2
[2018-04-21 14:37] VITALS: BP 132/88; PULSE 63; RESP 18; TEMP 98.2; O2SAT 98
[2018-04-21] MEDS ORDERED: Bacitracin 500 Units/gm Oint Foilpak UD TOP ONE (15:18)
--- NOTE | 2018-04-21 15:31 | ED PDOC ---
Arrival/HPI - General Chief Complaint: Abnormal Skin Integrity Historian: Patient - History of Present Illness Narrative History of Present Illness (Text): 04/21/18 15:24 57 year old female, whose past medical history includes CHF, hypertension, HIV, and PAD, presents to the emergency department for evaluation of her surgical wound site. Patient had surgery on 04/03/2018, had stents placed bilaterally in her lower extremities the wounds were closed with vinnie. She states the surgical site and vinnie are causing her pain and she is here asking for them to be removed. She says she called the surgery center and they told her she has an appointment on 04/27/2018 for the vinnie to be removed. Patient was under the impression they were supposed to be removed yesterday. She is taking percocet for pain with good relief. She notes her PAD symptoms have improved immensely since the surgery. Patient denies any signs of any wound infection, redness in the area, fever, chills, no leg numbness/ weakness/ or paresthesias, denies fevers, chills, headache, dizziness, chest pain, shortness of breath, dyspnea on exertion, cough, abdominal pain, nausea, vomiting, diarrhea, back pain, neck pain, or any other complaint. Time/Duration: < week Symptom Onset: Gradual Symptom Course: Unchanged Activities at Onset: Light Context: Home Past Medical History - Provider Review Nursing Documentation Reviewed: Yes - Infectious Disease Hx of Infectious Diseases: None - Tetanus Immunization Tetanus Immunization: Up to Date - Cardiac Hx Pacemaker: No - Pulmonary Hx Respiratory Disorders: Yes Hx Pneumonia: Yes - Neurological Hx Paralysis: No - HEENT Hx HEENT Disorder: No Hx Blind: No - Renal Hx Renal Disorder: No - Endocrine/Metabolic Hx Endocrine Disorders: No - Hematological/Oncological Hx Blood Transfusions: No - Integumentary Hx Dermatological Disorder: No - Musculoskeletal/Rheumatological Hx Musculoskeletal Disorders: No - Gastrointestinal Hx Gastrointestinal Disorders: No - Genitourinary/Gynecological Hx Genitourinary Disorders: No - Psychiatric Hx Emotional Abuse: No Hx Physical Abuse: No Hx Substance Use: No - Past Surgical History Past Surgical History: No Previous - Surgical History Hx Cardiac Catheterization: Yes (2012 no stent) Other/Comment: femoral angiogram 09/03/17 - Anesthesia Hx Anesthesia: Yes Hx Anesthesia Reactions: No Hx Malignant Hyperthermia: No - Suicidal Assessment Feels Threatened In Home Enviroment: No Family/Social History - Physician Review Nursing Documentation Reviewed: Yes Family/Social History: No Known Family HX Smoking Status: Light Smoker < 10 Cigarettes Daily Hx Alcohol Use: Yes (occasional social) Hx Substance Use: No Hx Substance Use Treatment: No Allergies/Home Meds Allergies/Adverse Reactions: Allergies No Known Allergies Allergy (Verified 08/06/16 11:41) Home Medications: Home Meds Medication Instructions Recorded Confirmed Cilostazol [Pletal] 100 mg PO BID 08/29/17 09/03/17 Emtricitab/Rilpiviri/Tenof Ala 1 tab PO DAILY 08/29/17 09/03/17 [Odefsey Tablet] RX: Lisinopril [Prinivil] 5 mg PO DAILY 08/29/17 09/03/17 RX: Aspirin [Ecotrin] 325 mg PO DAILY 09/03/17 09/03/17 RX: Pravastatin Sodium [Pravachol] 80 mg PO HS 09/03/17 09/03/17 amLODIPine [Norvasc] 10 mg PO DAILY 09/03/17 09/03/17 Review of Systems - Physician Review All systems were reviewed & negative as marked: Yes - Review of Systems Constitutional: absent: Fevers Eyes: absent: Vision Changes Respiratory: absent: SOB, Cough Cardiovascular: absent: Chest Pain Gastrointestinal: absent: Abdominal Pain, Diarrhea, Nausea, Vomiting Musculoskeletal: absent: Back Pain, Neck Pain Skin: Other (pain originating from vinnie placed for wound closure ) Neurological: absent: Headache, Dizziness Physical Exam Vital Signs Reviewed: Yes Vital Signs Temp Pulse Resp BP Pulse Ox 04/21/18 13:43 98.2 F 63 18 132/88 98 Temperature: Afebrile Blood Pressure: Normal Pulse: Regular Respiratory Rate: Normal Appearance: Positive for: Well-Appearing, Non-Toxic, Comfortable Pain Distress: None Mental Status: Positive for: Alert and Oriented X 3 - Systems Exam Head: Present: Atraumatic, Normocephalic Pupils: Present: PERRL Extroacular Muscles: Present: EOMI Conjunctiva: Present: Normal Mouth: Present: Moist Mucous Membranes Neck: Present: Normal Range of Motion Respiratory/Chest: Present: Clear to Auscultation, Good Air Exchange. No: Resp iratory Distress, Accessory Muscle Use Cardiovascular: Present: Regular Rate and Rhythm, Normal S1, S2. No: Murmurs Upper Extremity: Present: Normal Inspection. No: Cyanosis, Edema Lower Extremity: Present: NORMAL PULSES, Neurovascularly Intact, Capillary Refill < 2 s, Other (10cm incision (well healing) in her groin area bilaterally, vinnie intact, no redness, drainage, or warmth from area). No: Edema, Swelling, Erythema, Temperature Abnormalties Neurological: Present: GCS=15, CN II-XII Intact, Speech Normal Skin: Present: Warm, Dry, Normal Color. No: Rashes Psychiatric: Present: Alert, Oriented x 3, Normal Insight, Normal Concentration Medical Decision Making ED Course and Treatment: 04/21/18 15:34 Impression: 57 year old female who presents to the emergency department complaining of pain originating from surgical vinnie. Plan: -- Bacitracin -- Reassess and disposition Prior Visits: Notes and results from previous visits were reviewed. Progress Notes: - Medication Orders Current Medication Orders: Discontinued Medications Bacitracin (Bacitracin) 1 ea TOP ONCE ONE Stop: 04/21/18 15:19 - PA / PHYSICIAN RELATIONS MANAGER / Resident Statement MD/DO has examined the patient and agrees with the treatment plan. - Scribe Statement The provider has reviewed the documentation as recorded by the Damion Hdz Provider Scribe Attestation: All medical record entries made by the Damion were at my direction and personally dictated by me. I have reviewed the chart and agree that the record accurately reflects my personal performance of the history, physical exam, medical decision making, and the department course for this patient. I have also personally directed, reviewed, and agree with the discharge instructions and disposition. Disposition/Present on Arrival - Present on Arrival Any Indicators Present on Arrival: No History of DVT/PE: No History of Uncontrolled Diabetes: No Urinary Catheter: No History of Decub. Ulcer: No History Surgical Site Infection Following: None - Disposition Have Diagnosis and Disposition been Completed?: Yes Diagnosis: Surgical wound present, Visit for wound check Disposition: ELOPEMENT - ER ONLY Disposition Time: 16:17 Patient Plan: Discharge Condition: GOOD Discharge Instructions (ExitCare): Surgical Wound (DC), Wound Care (DC) Additional Instructions: Followup with your surgeon as scheduled on April 27 Continue home medications as prescribed Continue daily wound dressings Followup with primary doctor within 2 days Return to ER with any new/worsening symptoms Referrals: [facility] [place] - Follow up with primary Stella Garcia MD [Medical Doctor] - Follow up with primary Forms: [employer] (Uzbek)
== END 2018-04-21 15:30 | disposition left against medical advice (07) ==
LOC: ED 13:39
DX: Z48.89 Encounter for other specified surgical aftercare (principal)